=== PATIENT | male | born 1965 | race African-American/Black ===

== ENCOUNTER 2017-11-30 11:08 | Emergency (ER) | payer SELFPAY ==
[2017-11-30 11:10] VITALS: BP 139/77; PULSE 91; RESP 19; TEMP 36.8; O2SAT 95; BMI 19.2
--- NOTE | 2017-11-30 11:42 | ED.DCSUM_ITS ---
- ER Visit Summary Date of Service: 11/30/17 Chief Complaint: Cough with subjective fever and chills History of Present Illness: The patient is a 52 M significant past medical history. Patient states last week he has a cough of brownish phlegm with subjective fever and chills. States he is not getting better. Denies hemoptysis. He is a smoker. Physical Examination: Appearing middle-aged male. Vital signs are stable afebrile. Pulse ox 99% on room air no signs of hypoxia. H pharynx moist and pink. No erythema or exudate. Trouble swallowing or breathing. Neck nontender no lymphadenopathy. Lungs clear to auscultation bilaterally. Heart regular rhythm no murmur. Abdomen soft nontender. Normal bowel sounds. No peritoneal signs. Moving all 4 extremities. Neurovascularly intact. Calves nontender without edema or cords. Back exam nontender. Neurologically is awake and alert with no focal motor deficits. Test Results: X-ray two-view is a left upper lobe pneumonia near the first rib. I did discuss this with the radiologist. Emergency Department Course and Treatment: Patient be given his first dose of Zithromax here. And treated with Zithromax for the next 4 days. Treatment Plan: For a left upper lobe pneumonia with Zithromax. He will be referred to Dr. Yosi Peralta for follow-up. Due to the patient's smoking history he may need a repeat chest x-ray for repeat evaluation to ensure this is resolving. Disposition: Disharge Impression: Acute upper lobe pneumonia This note was generated with [employer] dictation software. It may contain incorrect words, spelling, and punctuation that were not noted in review of the chart prior to signing ED Disposition - Plan for ED Patient: Chief Complaint: Cold Sx Referrals: Care Physician,No Primary [Primary Care Provider] -
--- NOTE | 2017-11-30 11:50 | RAD_ITS ---
STUDY: X-RAY CHEST REASON FOR EXAM: Male, 52 years old. Cough. Fever and chills. TECHNIQUE: PA and lateral views of the chest. COMPARISON: None. FINDINGS: The lungs are clear and expanded. There is no demonstrated pleural abnormality. Normal size heart. Normal mediastinum and remy. Normal visualized pulmonary arteries. Normal visualized aortic arch and descending thoracic aorta. Normal visualized thoracic spine. Normal visualized ribs, clavicles, and shoulders. There is no demonstrated abnormality of the visualized soft tissue structures of the upper abdomen. RAD/Chest PA and Lateral IMPRESSION: Normal x-ray examination of the chest. Electronically Signed: Watson Irene MD at 12:44 EDT Tel [phone], Service support ,
--- NOTE | 2017-11-30 13:26 | ED.DEP ---
ED Disposition - Plan for ED Patient: Disposition: Home or Assisted Living Chief Complaint: Cold Sx Instructions: ED Pneumonia Adult Prescriptions: Azithromycin [Zithromax] 250 mg PO DAILY #4 tab Referrals: Care Physician,No Primary [Primary Care Provider] - Additional Instructions: Fluids and rest. Tylenol Motrin for chills. Zithromax 1 pill per day for the next 4 days. Follow-up with Dr. Yosi Peralta if not getting better or return to ER feeling worse. You have been diagnosed with a left upper lobe pneumonia. Stop smoking.
[2017-11-30] MEDS: Azithromycin 250 MG Tablet 500 MG PO (13:40)
[2017-11-30 13:42] VITALS: BP 128/78; PULSE 87; RESP 16; O2SAT 97
== END 2017-11-30 13:43 | disposition home or self-care (01) ==
PROVIDERS: Emergency Provider Emergency Medicine
DX: J18.1 Lobar pneumonia, unspecified organism (principal); F17.200 Nicotine dependence, unspecified, uncomplicated
CPT/HCPCS: 71046; 99282

== ENCOUNTER 2018-05-16 18:04 | Observation (INO) | payer MEDICAID, SELFPAY ==
[2018-05-16 18:06] VITALS: BP 130/101; PULSE 96; RESP 28; TEMP 36.8; O2SAT 100; BMI 19.3
--- NOTE | 2018-05-16 18:50 | EKG12_ITS ---
Test Reason : SOB Blood Pressure : / mmHG Vent. Rate : 066 BPM Atrial Rate : 066 BPM P-R Int : 136 ms QRS Dur : 070 ms QT Int : 396 ms P-R-T Axes : 078 -39 066 degrees QTc Int : 415 ms Normal sinus rhythm Left axis deviation ST elevation, consider early repolarization Abnormal ECG Confirmed by ROBIN MICHEL, VARGHESE ([id number]), editorial project manager ZAYNAB GOMEZ ([id number]) on 05/18/2018 1:13:49 PM Referred By: ANATOLIY Confirmed By:VARGHESE KELLY MD
[2018-05-16] MEDS: LORazepam 2 MG/ML Syringe 1 MG IV (18:59)
[2018-05-16] MEDS: 0.9% Normal Saline 1,000 ML 999 ML IV (19:01)
[2018-05-16 19:12] LABS: Absolute Lymphocyte Count 0.87 X10^3/ul (0.83-4.51); Absolute Neutrophil Count 8.1 X10^3/uL (2.0-7.7); Basophil# 0.01 X10^3/uL; Basophil% 0.1 % (0-1); Hematocrit 43.8 % (40-54); Lymphocyte # 0.87 X10^3/ul (4.0); Lymphocyte % 8.8 % (19-41); Mean Corp Hgb Conc 34.2 g/gl (32-36); Mean Corpuscular Hgb 32.8 pg (27.0-32.0); Mean Corpuscular Volume 95.6 fL (80-94); Mean Platelet Vol. 11.7 fl (6.2-12.0); Monocyte# 0.91 X10^3/uL; Monocyte% 9.2 % (0-10); Neutrophil # 8.07 X10^3/uL (2.7-7.7); Neutrophil % 81.8 % (47-70); Platelet Count 334 K/mm3 (150-450); RBC Distribution Width CV 14.7 % (11.6-14.6); RBC Distribution Width SD 51.3 fl (35.1-43.9); Red Blood Count 4.58 M/mm3 (4.6-6.2); White Blood Count 9.9 K/mm3 (4.4-11.0)
--- NOTE | 2018-05-16 19:15 | RAD_ITS ---
STUDY: X-RAY CHEST REASON FOR EXAM: Male, 52 years old. Dyspnea TECHNIQUE: AP portable COMPARISON: November 30, 2017 FINDINGS: The lungs are clear and expanded. There is no demonstrated pleural abnormality. Normal size heart. Normal mediastinum and remy. Normal visualized pulmonary arteries. Normal visualized aortic arch and descending thoracic aorta. Normal visualized thoracic spine. Normal visualized ribs, clavicles, and shoulders. There is no demonstrated abnormality of the visualized soft tissue structures of the upper abdomen. No significant change since prior exam RAD/Chest 1 View (Portable) IMPRESSION: Normal x-ray examination of the chest. Electronically Signed: Danny King MD at 20:07 EDT , Service support ,
[2018-05-16 19:16] LABS: POSITIVE COUNT NO; POSITIVE DIFFERENTIAL NO; POSITIVE MORPHOLOGY NO
[2018-05-16 19:31] LABS: ALB/GLOB Ratio 1.2 RATIO (0.9-2.4); AST(SGOT) 51 U/L (15-37); Alanine Aminotransfer ALT/SGPT 36 U/L (16-61); Albumin, Serum 4.7 g/dL (3.2-5.0); Alkaline Phosphatase 68 U/L (45-117); Anion Gap 20 (5-15); BUN 22 mg/dL (7-18); BUN/Creat Ratio 9.4 RATIO (10-20); Calcium,Total 10.1 mg/dL (8.5-10.1); Chloride 100 mmol/L (98-107); Creatinine, Serum 2.35 mg/dL (0.70-1.30); EST Glomerular Filtration Rate 31 mL/min (>60); Est Glom Filt Rate - Afr Amer 37 mL/min (>60); Estimated Creatinine Clearance 28.69 ml/min; Glucose 97 mg/dL (74-106); Potassium 4.6 mmol/L (3.5-5.1); Protein, Total 8.7 g/dL (6.4-8.2); Sodium Level 140 mmol/L (136-145)
[2018-05-16 19:51] LABS: Alcohol, Blood (Medical)-Serum < 3.0 mg/dL
[2018-05-16 20:05] VITALS: PULSE 75; RESP 19; O2SAT 99
[2018-05-16 22:00] VITALS: PULSE 84; RESP 14
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
[2018-05-17] VITALS (7 sets, daily range): BP systolic 98–114; BP diastolic 59–75; PULSE 76–110; RESP 14–18; TEMP 36.6–37; O2SAT 97–100; BMI 18.8
--- NOTE | 2018-05-17 00:19 | US_ITS ---
STUDY: ABDOMINAL ULTRASOUND - RIGHT UPPER QUADRANT REASON FOR VISIT: Male, 52 years old. Elevated liver function tests. TECHNIQUE: Ultrasound evaluation of the right upper quadrant was performed with real-time and static figueroa-scale imaging. TECHNICAL QUALITY: Adequate. COMPARISON: None. FINDINGS: Liver: The liver measures 13.8 cm. There is normal echogenicity of the liver. The bile ducts are within normal limits. There is hepatic color flow. The direction of portal flow is hepatopetal. There is no demonstrated mass lesion. Gallbladder: Normal distended gallbladder. The gallbladder wall measures 2.0 mm. There is a negative sonographic Barrett's sign. There is no pericholecystic fluid. There are no gallstones. Common Bile Duct (C.B.D.): The common bile duct measures 2.0 mm. Pancreas: Normal size of the head, body and tail of the pancreas. There is normal echogenicity of the pancreas. There is no demonstrated pancreatic mass or cyst. Right Kidney: Normal size of the right kidney. The right kidney measures 10.1 cm x 5.0 cm x 3.3 cm. Normal renal cortex. The right cortex measures 1.4 cm. There is no demonstrated renal mass or cyst. There is no right hydronephrosis. US/Abdomen Limited IMPRESSION: Normal right upper quadrant ultrasound examination. Electronically Signed: Watson Irene MD at 14:35 EDT Tel [phone], Service support ,
[2018-05-17] MEDS: 0.9% Normal Saline 1,000 ML 125 ML IV ×2 (01:00→17:54)
[2018-05-17 01:24] LABS: CPK Total, Creatine Kinase 1549 U/L (39-308); Prealbumin 28.3 mg/dL (20.0-40.0)
[2018-05-17 03:32] LABS: Magnesium 2.5 mg/dL (1.6-2.6); Phosphorus 1.7 mg/dL (2.5-4.9)
[2018-05-17 04:26] LABS: Lactic Acid 0.7 mmol/L (0.4-2.0)
[2018-05-17] MEDS: Heparin Injection (Vial) 5,000 UNIT/ML VIAL 5000 UNIT SC (06:07)
[2018-05-17 06:52] LABS: Absolute Lymphocyte Count 2.33 X10^3/ul (0.83-4.51); Absolute Neutrophil Count 4.8 X10^3/uL (2.0-7.7); Basophil# 0.01 X10^3/uL; Basophil% 0.1 % (0-1); Eosinophil# 0.01 X10^3/uL; Eosinophils% 0.1 % (0-5); Hematocrit 39.9 % (40-54); Hemoglobin 13.6 g/dl (13.0-16.5); Lymphocyte # 2.33 X10^3/ul (4.0); Lymphocyte % 28.8 % (19-41); Mean Corp Hgb Conc 34.1 g/gl (32-36); Mean Corpuscular Hgb 32.6 pg (27.0-32.0); Mean Corpuscular Volume 95.7 fL (80-94); Mean Platelet Vol. 11.3 fl (6.2-12.0); Monocyte% 11.1 % (0-10); Neutrophil # 4.83 X10^3/uL (2.7-7.7); Neutrophil % 59.8 % (47-70); Platelet Count 304 K/mm3 (150-450); RBC Distribution Width CV 14.8 % (11.6-14.6); RBC Distribution Width SD 51.5 fl (35.1-43.9); Red Blood Count 4.17 M/mm3 (4.6-6.2); White Blood Count 8.1 K/mm3 (4.4-11.0)
[2018-05-17 06:54] LABS: Prothrombin Time (Protime)PT. 13.3 SECONDS (11.7-14.9)
[2018-05-17 07:10] LABS: POSITIVE COUNT NO; POSITIVE DIFFERENTIAL NO; POSITIVE MORPHOLOGY NO
[2018-05-17 07:13] LABS: Anion Gap 13 (5-15); BUN 24 mg/dL (7-18); BUN/Creat Ratio 16.4 RATIO (10-20); Calcium,Total 8.5 mg/dL (8.5-10.1); Chloride 104 mmol/L (98-107); Creatinine, Serum 1.46 mg/dL (0.70-1.30); EST Glomerular Filtration Rate 54 mL/min (>60); Est Glom Filt Rate - Afr Amer 65 mL/min (>60); Estimated Creatinine Clearance 45.11 ml/min; Glucose 76 mg/dL (74-106); Potassium 3.7 mmol/L (3.5-5.1); Sodium Level 137 mmol/L (136-145)
[2018-05-17 07:26] LABS: Mucous, Urine 0 SEEN /hpf (<or=2+)
[2018-05-17 07:33] LABS: Urine Sodium 102 mmol/L (Not Establ.)
[2018-05-17 07:46] LABS: Amphetamine Urine VISTA POSITIVE (<1000 ng/mL); Barbiturate Urine VISTA NEGATIVE (< 200 ng/mL); Benzodiazepine Urine VISTA NEGATIVE (< 200 ng/mL); Cocaine Urine VISTA NEGATIVE (< 300 ng/mL); Ecstacy Urine VISTA NEGATIVE (< 500 ng/mL); Methadone Urine VISTA NEGATIVE (< 300 ng/mL); PCP Urine VISTA NEGATIVE (< 25 ng/mL); THC Urine VISTA POSITIVE (< 50 ng/mL); Vista UDS pH Range 5
[2018-05-17 08:03] LABS: Color, Urine Yellow (Yellow); Glucose, Dipstick Normal (Normal); Leukocyte Esterase-Dipstick 25 /ul (Negative); Nitrite-Dipstick Negative (Negative); Occult Blood-Urine 25 /ul (Negative); Protein-Dipstick 30 mg/dl (Negative); Urine Bilirubin Dipstick Negative (Negative); Urine Clarity Sl. Cloudy (Clear); Urine Urobilinogen 1 mg/dl (Normal)
[2018-05-17 08:08] LABS: Ketone-Dipstick 150 mg/dl (Negative)
[2018-05-17 08:11] LABS: Amorphous Sediment 1+; Bacteria 1+ /hpf (None Seen); Red Blood Cells-Urine 0-5 SEEN /hpf (0-5); Squamous Epithelial Cells - UA 0-5 SEEN /hpf (0-5); White Blood Cells 0-5 SEEN /hpf (0-5)
--- NOTE | 2018-05-17 11:15 | CASEMGMT ---
KRYSTIAN MURPHY Face to Face with patient for initial transition planning/care coordination assessment. KRYSTIAN MURPHY introduced self and role at [facility]. Patient lying in bed, alert and oriented, withdrawn playing on tablet. Patient states he lives on the streets and preferred pharamcy is [facility]. Denies any DME. Patient asked if you utilizes any shelters or other resources and states no. Patient states he plans to return to the streets. KRYSTIAN MURPHY offered [facility] referral for additional resources for shelters, food gonzalez, and housing. Patient declined resources. Patient states he has no further needs or concerns at this time. CM to follow for discharge planning needs that may arise. KRYSTIAN MURPHY updated hospitalist and [facility]I Andrews regarding patient's living situation and denying resources. Amanda GOODMANN, RN, CM
[2018-05-17] MEDS: Thiamine Hydrochloride 100 MG Tablet PO ×2 (11:26→16:06)
[2018-05-17] MEDS: Folic Acid 1 MG Tablet PO (11:26)
[2018-05-17] MEDS: Multivitamins,Ther W-Minerals Tablet 1 TABLET PO (11:26)
[2018-05-17] MEDS: Na Biphos/Potassium Phosphate PACKET 1 PACKET PO ×4 (11:31→20:26)
--- NOTE | 2018-05-17 11:53 | PN_ITS ---
Patient Problems: Active and Suspected Problems Dehydration (Acute) KAVEH (acute kidney injury) (Acute) Heat exhaustion (Acute) High anion gap metabolic acidosis (Acute) Elevated liver enzymes (Acute) Protein-calorie malnutrition, mild (Acute) Subjective: Patient was seen and examined. Denies any new complaints. Feels improved, less nauseous, no abdominal pain or diarrhea Vitals/I&O's: Vital Signs Temp Pulse Resp BP Pulse Ox 97.8 F 77 18 114/75 100 05/17/18 09:55 05/17/18 09:55 05/17/18 09:55 05/17/18 09:55 05/17/18 09:55 Oxygen Delivery Method Room Air Weight: 54.5 kg Body Mass Index (BMI) 18.8 Intake and Output for Last 24 Hours 05/15/18 05/16/18 05/17/18 23:59 23:59 23:59 Intake Total 1375 / 1375 Balance 1375 / 1375 General: Alert, Oriented x3, Cooperative, No apparent distress HEENT: Atraumatic, PERRLA, EOMI, Normocephalic Oral: Moist Mucosa Neck: Supple, No JVD, Negative Carotid Bruits Lungs: Clear to auscultation, Normal air movement Cardiovascular: Regular rate, Regular Rhythm, Normal S1, Normal S2, No murmurs Abdomen: Bowel Sounds Present, Soft, Non Tender, Non-Distended, No Hepato- splenomegaly Extremities: No edema Skin: No rashes, No breakdown Musculoskeletal: No Tenderness to Palpation of Joints or Extremities Lymphatic: No Cervical, Supraclavicular, or Inguinal Adenopathy Neurological: Cranial nerves II-XII grossly intact, Neuro grossly intact Psych/Mental Status: Normal Affect, Appropriate Laboratory Results 05/17/18 00:00: Total Creatine Kinase 1549 H, Prealbumin 28.3 05/17/18 00:16: Phosphorus 1.7 L, Magnesium 2.5 05/17/18 03:40: Lactic Acid 0.7 05/17/18 05:40: Acetone Level NEGATIVE 05/17/18 05:40: PT 13.3, INR 1.0 05/17/18 05:40: WBC 8.1, RBC 4.17 L, Hgb 13.6, Hct 39.9 L, MCV 95.7 H, MCH 32.6 H, MCHC 34.1, RDW 14.8 H, RDW Differential 51.5 H, Plt Count 304, MPV 11.3, Immature Gran % (Auto) 0.100, Neut % (Auto) 59.8, Lymph % (Auto) 28.8, [place] % ( Auto) 11.1 H, Eos % (Auto) 0.1, Baso % (Auto) 0.1, Absolute Neuts (auto) 4.8, Absolute Lymphs (auto) 2.33, Total Counted Not Reportable 05/17/18 05:40: Sodium 137, Potassium 3.7, Chloride 104, Carbon Dioxide 20.0 L, Anion Gap 13, BUN 24 H, Creatinine 1.46 H, Estim Creat Clear Calc 45.11, Est GFR (MDRD) Af Amer 65, Est GFR (MDRD) Non-Af 54 L, BUN/Creatinine Ratio 16.4, Glucose 76, Calcium 8.5 05/17/18 06:15: Urine Opiates Screen NEGATIVE, Urine Methadone Screen NEGATIVE, Ur Barbiturates Screen NEGATIVE, Ur Phencyclidine Scrn NEGATIVE, Ur Amphetamines Screen POSITIVE H, U Methamphetamin-MDMA NEGATIVE, U Benzodiazepines Scrn NEGATIVE, Urine Cocaine Screen NEGATIVE, U Cannabinoids Screen POSITIVE H, Ur Drug Screen Comment 05/17/18 06:15: Urine Color Yellow, Urine Clarity Sl. Cloudy, Urine pH 6.0, Ur Specific [place] 1.020, Urine Protein 30 H, Urine Glucose (UA) Normal, Urine Ketones 150 H, Urine Occult Blood 25 H, Urine Nitrite Negative, Urine Bilirubin Negative, Urine Urobilinogen 1 H, Ur Leukocyte Esterase 25 H, Urine RBC 0-5 SEEN , Urine WBC 0-5 SEEN, Ur Squamous Epith Cells 0-5 SEEN, Amorphous Sediment 1+, Urine Bacteria 1+, Urine Mucus 0 SEEN 05/17/18 06:15: Urine Creatinine 274.00 05/17/18 06:15: Ur Random Sodium 102 Current Medications Folic Acid (Folic Acid) 1 mg PO DAILY@0800 [facility] Stop: 05/19/18 08:01 Last Admin: 05/17/18 11:26 Dose: 1 mg Heparin Sodium (Porcine) (Heparin Na) 5,000 unit SC Q8 [facility] Last Admin: 05/17/18 06:07 Dose: 5,000 unit Lorazepam (Ativan) 2 mg PO Q2H PRN PRN; Protocol PRN Reason: CIWA score > 8 but <15 Lorazepam (Ativan) 2 mg PO UD PRN; Protocol PRN Reason: CIWA score >/=15. Lorazepam (Ativan) 2 mg IV Q2H PRN PRN; Protocol PRN Reason: CIWA score > 8 but <15 Lorazepam (Ativan) 2 mg IV UD PRN; Protocol PRN Reason: CIWA score >/=15. Magnesium Hydroxide (Milk Of Magnesia) 30 ml PO DAILY PRN PRN PRN Reason: Constipation Multivitamins/Minerals (Multivitamin With Minerals) 1 tablet PO DAILYCM [facility] Last Admin: 05/17/18 11:26 Dose: 1 tablet Nicotine (Nicoderm Cq (Pbkc)) 21 mg TRANSDERM. DAILY [facility] Last Admin: 05/17/18 11:38 Dose: Not Given Nutritional Formula (Lactose Free) (Ensure Enlive) 120 ml PO 4X/DAY [facility] Last Admin: 05/17/18 11:30 Dose: 120 ml Ondansetron HCl (Zofran) 4 mg IV Q8H PRN PRN PRN Reason: NAUSEA Potassium Phos/Sodium Phos (Neutra-Phos Packet) 1 packet PO 4X/[facility] Stop: 05/17/18 22:01 Last Admin: 05/17/18 11:31 Dose: 1 packet Sodium Chloride () 5 - 30 ml IV UD PRN PRN Reason: SALINE FLUSH Thiamine HCl (Vitamin B1) 100 mg PO BIDCM [facility] Stop: 05/19/18 17:01 Last Admin: 05/17/18 11:26 Dose: 100 mg Zolpidem Tartrate (Ambien (Generic)) 5 mg PO QHS PRN PRN PRN Reason: INSOMNIA Medical Necessity - Tobacco Use Smoking Status: Current every day smoker Assessment/Plan All Active Problems Dehydration (Acute) KAVEH (acute kidney injury) (Acute) Heat exhaustion (Acute) High anion gap metabolic acidosis (Acute) Elevated liver enzymes (Acute) Protein-calorie malnutrition, mild (Acute) 52-year-old male with history of polysubstance use, homeless comes in with 1 day history of shortness of breath, nausea, vomiting and diaphoresis. Chest x- ray was negative for any acute cardiopulmonary process. Patient was found on admission to have acute kidney injury as well as anion gap metabolic acidosis. 1. KAVEH secondary to dehydration, improving with IV fluids, creatinine improved from 2.35-1.46, unclear of baseline 2. Anion gap metabolic acidosis secondary to alcoholism and starvation, improving, bicarbonate remains the same, will continue to trend 3. Chronic alcohol dependency, alcohol withdrawal protocol with monitoring of CIWA, on thiamine, folic acid, advised to quit 4. Elevated liver enzymes continue to alcohol, improving, labs in a.m. 5. Hypophosphatemia secondary to refeeding disorder, replace, recheck in a.m. 6. Moderate protein energy malnutrition, on supplements, monitor for refeeding syndrome 7. Polysubstance dependency, advised to quit 8. Homelessness, social science research assistant consulted, resources to be given to patient 9. DVT prophylaxis with heparin subcu Code Visit Inpatient E&M: 68899 Subs Hosp L2
--- NOTE | 2018-05-17 15:03 | CASEMGMT ---
Social Work Note Per H+P pt is homeless, has history of alcohol and marijuana use, and can't afford food. [facility] met with pt. SW attempted to discuss resources with pt but pt refused information about resources. SW attempted to educate pt on PCP list, [facility], Homeless Shelters, [place] [address], [facility], Meals/Food resources, Food Pantries, [facility], and counseling services but pt refused to speak to this worker. Pt refused to take resources. SW encouraged pt that if he would like resources to let the staff know and this SW can provide pt with resources. Amanda Andrews INTERVIEWING CLERK, STAFF ELECTRICAL ENGINEER
[2018-05-17] MEDS: 0.9% NaCl Peripheral Flush Adult/Peds IV (17:54)
--- NOTE | 2018-05-17 20:31 | NURSING ---
Pt. c/o inability to urinate. This nurse bladder scanned patient for 93 ml. 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 Will notify hospitalist.
[2018-05-18] MEDS: 0.9% Normal Saline 1,000 ML 125 ML IV (01:22)
[2018-05-18 03:30] VITALS: BP 90/56; PULSE 57; RESP 16; TEMP 36.6; O2SAT 100
[2018-05-18 05:30] VITALS: BP 98/66; PULSE 62; RESP 16; TEMP 36.6; O2SAT 100
[2018-05-18 05:31] VITALS: BP 98/66; PULSE 62; RESP 16; TEMP 36.6; O2SAT 100
[2018-05-18 06:50] LABS: ALB/GLOB Ratio 0.9 RATIO (0.9-2.4); AST(SGOT) 32 U/L (15-37); Alanine Aminotransfer ALT/SGPT 23 U/L (16-61); Albumin, Serum 2.8 g/dL (3.2-5.0); Alkaline Phosphatase 45 U/L (45-117); Anion Gap 7 (5-15); BUN 19 mg/dL (7-18); Calcium,Total 7.9 mg/dL (8.5-10.1); Chloride 109 mmol/L (98-107); Creatinine, Serum 0.95 mg/dL (0.70-1.30); EST Glomerular Filtration Rate 88 mL/min (>60); Est Glom Filt Rate - Afr Amer 107 mL/min (>60); Estimated Creatinine Clearance 69.32 ml/min; Globulin 3.1 g/dL (2.2-4.2); Glucose 87 mg/dL (74-106); Protein, Total 5.9 g/dL (6.4-8.2); Sodium Level 139 mmol/L (136-145)
--- NOTE | 2018-05-18 07:53 | DCINST_ITS ---
- Discharge Diagnoses Current Active Problems: Current Active and Chronic Problems Dehydration (Acute) KAVEH (acute kidney injury) (Acute) Heat exhaustion (Acute) High anion gap metabolic acidosis (Acute) Elevated liver enzymes (Acute) Protein-calorie malnutrition, mild (Acute) Reason(s) for Visit for Discharge Instructions: Nausea, vomiting, abdominal pain You will use the following diet at home:: Regular Your food should be the consistency of: Regular Your liquids should be the consistency of: Regular/Thin Discharge Activity: Return to Normal Activity Additional Instructions: You need to follow-up with a primary care doctor within 2 weeks. Continue to keep yourself hydrated. You are advised to quit smoking and using illicit drugs. Allergies/Adverse Reactions: Allergies No Known Allergies Allergy (Verified 05/16/18 18:11) Medications to take at Discharge NK [NK] 05/16/18 Orders to be completed after discharge: Basic Metabolic Profile (BMP) Time Frame: 1 Week, Location: Laboratory Primary Care Physician: Care Physician,No Primary [Primary Care Provider] - Please follow up with your Primary Care Physician in: within 2 weeks Test Results: Test results from this visit will be discussed in further detail at your follow- up appointment, if applicable. Proposed Discharge Date: 05/18/18
[2018-05-18 08:53] LABS: Phosphorus 2.9 mg/dL (2.5-4.9)
--- NOTE | 2018-05-18 08:58 | DS.PCM_ITS ---
Discharge Date and Diagnosis Date of Admission: 05/16/18 Date of Discharge: 05/18/18 - Primary Discharge Diagnosis Active and Suspected Problems Dehydration (Acute) KAVEH (acute kidney injury) (Acute) Heat exhaustion (Acute) High anion gap metabolic acidosis (Acute) Elevated liver enzymes (Acute) Protein-calorie malnutrition, mild (Acute) Polysubstance dependency Hospital Course and Treatment Imaging Results: Clinical Impression(s) from Imaging Studies Chest X-Ray 05/16/18 19:15 IMPRESSION: Normal x-ray examination of the chest. Electronically Signed: Danny King MD at 20:07 EDT , Service support , Abdomen Ultrasound 05/17/18 00:19 IMPRESSION: Normal right upper quadrant ultrasound examination. Electronically Signed: Watson Irene MD at 14:35 EDT Tel [phone], Service support , None Operations: None Procedures: None Summary of Care Provided: 52-year-old male with history of polysubstance use, homeless comes in with 1 day history of shortness of breath, nausea, vomiting and diaphoresis. Chest x- ray was negative for any acute cardiopulmonary process. Patient was found on admission to have acute kidney injury as well as anion gap metabolic acidosis. His management to the hospital was as follows: 1. KAVEH secondary to dehydration, this was managed with IV fluids, creatinine improved from 2.35 to normal at the day of the discharge, encouraged to keep hydrating himself, needs to follow-up with his primary care doctor and repeat blood work in 1 week. 2. Anion gap metabolic acidosis secondary to alcoholism and starvation, improving, improved with hydration 3. Chronic alcohol dependency, alcohol withdrawal protocol with monitoring of CIWA, on thiamine, folic acid, advised to quit 4. Elevated liver enzymes tender to alcohol, resolving, advised to quit drinking alcohol 5. Hypophosphatemia secondary to refeeding disorder, resolved 6. Moderate protein energy malnutrition, on supplements 7. Polysubstance dependency, advised to quit 8. Homelessness, social media sr strategy manager consulted, resources to be given to patient, patient refused to take any resources, given resources for primary care doctor for him to follow-up with Discharge Diet: No Restrictions Discharge Activity: Return to Normal Activity Home Medications: Medications to take at Discharge NK [NK] 05/16/18 Primary Care Physician: Care Physician,No Primary [Primary Care Provider] - Please follow up with your Primary Care Physician in: within 2 weeks Disposition: Home Minutes spent on discharge:: 45 Medical Necessity - Tobacco Use Smoking Status: Current every day smoker Tobacco Use: Cigarettes Meaningful Use Info Meaningful Use Diagnoses (Choose all that apply): None applicable Code Visit Inpatient E&M: 83823 Disch Hosp
--- NOTE | 2018-05-18 09:07 | CASEMGMT ---
Social Work Note SW provided pt with list of PCP. Amanda Andrews EGG WORKER, RIDE ATTENDANT
[2018-05-18 09:42] VITALS: O2SAT 96
== END 2018-05-18 10:19 | disposition home or self-care (01) ==
LOC: ED 22:32 → MS3 23:45
PROVIDERS: Admitting Provider Hospitalist; Emergency Provider Emergency Medicine; Visit Provider Internal Medicine
DX: E86.0 Dehydration (principal); Z59.0 Homelessness; N17.9 Acute kidney failure, unspecified; E44.0 Moderate protein-calorie malnutrition; Z68.1 Body mass index [BMI] 19.9 or less, adult; F19.20 Other psychoactive substance dependence, uncomplicated; E83.39 Other disorders of phosphorus metabolism; F10.20 Alcohol dependence, uncomplicated; E87.2 Acidosis; F17.210 Nicotine dependence, cigarettes, uncomplicated; T67.5XXA Heat exhaustion, unspecified, initial encounter; R74.8 Abnormal levels of other serum enzymes
CPT/HCPCS: 36415; 71045; 76705; 80048; 80053; 80307; 80320; 81001; 82009; 82550; 82570; 83605; 83735; 84100; 84134; 84300; 84484; 85025; 85610; 93005; 96361; 96372; 96374; 97802; 99218; 99285; 99406; J7030; J7040; A4216; G0378; G0480

== ENCOUNTER 2018-06-03 17:00 | Emergency (ER) | payer MEDICAID, SELFPAY ==
[2018-06-03 17:02] VITALS: BP 93/57; PULSE 64; RESP 14; TEMP 35.9; O2SAT 93; BMI 18.6
--- NOTE | 2018-06-03 17:39 | CT_ITS ---
STUDY: CT ABDOMEN AND PELVIS WITHOUT CONTRAST REASON FOR EXAM: Male, 52 years old. Nausea, loss of appetite x2 days RADIATION DOSAGE (If Supplied By Facility): CTDIvol = ( 6.04 ) mGy, DLP = ( 283.89 ) mGycm TECHNIQUE: Transaxial images were obtained from the dome of the diaphragm to the symphysis pubis without oral contrast, and without intravenous contrast. Sagittal and coronal images were reconstructed. Individualized dose optimization techniques were used for this CT. COMPARISON: None. FINDINGS: The visualized lung bases are unremarkable. The visualized portions of the heart are within normal limits. Normal liver. Normal gallbladder and extrahepatic biliary system. Normal spleen. Normal pancreas. Normal bilateral adrenal glands. Normal right kidney. Normal left kidney. Normal visualized stomach. Multiple nondistended fluid-filled small bowel loops are noted consistent with ileus. Retained stool noted in the colon. The appendix is visualized and appears normal. Appendix best seen on coronal recon image 39. Normal abdominal aorta. Normal inferior vena cava. Normal retroperitoneum. Normal urinary bladder. Normal abdominal wall. Normal osseous structures. CT/Abdomen/Pelvis without Cont IMPRESSION: No suspicious solid organ abnormality Small bowel ileus Retained stool in the colon No CT evidence of an acute inflammatory process, normal appendix visualized. Electronically Signed: Jovani Killain MD at 18:05 EDT , Service support ,
[2018-06-03 17:56] LABS: Absolute Neutrophil Count 8.8 X10^3/uL (2.0-7.7); Basophil# 0.01 X10^3/uL; Basophil% 0.1 % (0-1); Hematocrit 39.5 % (40-54); Hemoglobin 13.3 g/dl (13.0-16.5); Mean Corp Hgb Conc 33.7 g/gl (32-36); Mean Corpuscular Hgb 32.9 pg (27.0-32.0); Mean Corpuscular Volume 97.8 fL (80-94); Monocyte# 0.43 X10^3/uL; Monocyte% 4.3 % (0-10); Neutrophil # 8.76 X10^3/uL (2.7-7.7); Neutrophil % 87.5 % (47-70); Platelet Count 355 K/mm3 (150-450); RBC Distribution Width CV 14.9 % (11.6-14.6); RBC Distribution Width SD 53.6 fl (35.1-43.9); Red Blood Count 4.04 M/mm3 (4.6-6.2)
[2018-06-03 17:58] LABS: POSITIVE COUNT NO; POSITIVE DIFFERENTIAL NO; POSITIVE MORPHOLOGY NO
[2018-06-03] MEDS: Ondansetron 4 MG/2 ML Vial IV (18:01)
[2018-06-03] MEDS: 0.9% Normal Saline 1,000 ML 1000 ML IV (18:01)
[2018-06-03 18:13] LABS: BUN 21 mg/dL (7-18); Creatinine, Serum 1.24 mg/dL (0.70-1.30); EST Glomerular Filtration Rate 65 mL/min (>60); Est Glom Filt Rate - Afr Amer 78 mL/min (>60); Estimated Creatinine Clearance 52.62 ml/min; Glucose 126 mg/dL (74-106)
[2018-06-03 18:14] LABS: AST(SGOT) 33 U/L (15-37); Alanine Aminotransfer ALT/SGPT 32 U/L (16-61); Alkaline Phosphatase 54 U/L (45-117); Anion Gap 16 (5-15); BUN/Creat Ratio 16.9 RATIO (10-20); Bilirubin, Direct 0.19 mg/dL (0.00-0.30); Calcium,Total 9.1 mg/dL (8.5-10.1); Chloride 103 mmol/L (98-107); Globulin 3.5 g/dL (2.2-4.2); Lipase 171 U/L (73-393); Potassium 3.9 mmol/L (3.5-5.1); Protein, Total 7.5 g/dL (6.4-8.2); Sodium Level 142 mmol/L (136-145)
--- NOTE | 2018-06-03 18:39 | ED.DCSUM_ITS ---
- ER Visit Summary Date of Service: 06/03/18 Chief Complaint: Nausea and vomiting History of Present Illness: The patient is a 52 M who presents with nausea vomiting. He states it started earlier today. He denies any abdominal pain. He denies diarrhea or constipation. He denies eating any bad food. He denies urinary symptoms. He feels weak overall. No history of any abdominal surgeries in the past. He has not had a fever. He took nothing for it at home. Physical Examination: Vital signs reviewed. HEENT exam unremarkable. Heart is regular rate and rhythm without murmurs. Lungs are clear to auscultation. Abdomen is soft with diffuse tenderness to palpation. No guarding or rebound tenderness. Extremities reveal no edema. Skin exam normal. Neurologic exam normal. Test Results: Laboratory studies are normal except for glucose of 126 and a BUN of 21. CAT scan reveals a small bowel ileus Emergency Department Course and Treatment: Patient was given Bentyl and Zofran. He was also given normal saline. Upon reevaluation at 1832 the patient feels much better. He is playing on his iPad. I feel he can be discharged home with symptom Medicare. I will given Bentyl and Phenergan. He will follow-up with his primary care physician. Treatment Plan: [] Disposition: Discharge Impression: Nausea and vomiting/ileus This note was generated with [employer] dictation software. It may contain incorrect words, spelling, and punctuation that were not noted in review of the chart prior to signing ED Disposition - Plan for ED Patient: Disposition: Home or Assisted Living Chief Complaint: Nausea/Vomiting Instructions: ED Nausea Vomiting Prescriptions: proMETHazine tablet [Phenergan] 25 mg PO Q6H PRN PRN #10 tab PRN Reason: Nausea Dicyclomine HCl [Bentyl] 20 mg PO TIDAC #20 cap Referrals: Care Physician,No Primary [Primary Care Provider] -
[2018-06-03 18:47] VITALS: BP 110/60; PULSE 80; RESP 16
== END 2018-06-03 18:47 | disposition home or self-care (01) ==
PROVIDERS: Emergency Provider Emergency Medicine
DX: K56.7 Ileus, unspecified (principal); R11.2 Nausea with vomiting, unspecified; Z72.0 Tobacco use
CPT/HCPCS: 74176; 80048; 80076; 83690; 85025; 96361; 96374; 99285; J2405

== ENCOUNTER 2018-06-22 19:03 | Observation (INO) | payer MEDICAID, SELFPAY ==
[2018-06-22 19:05] VITALS: BP 116/67; PULSE 72; RESP 18; TEMP 37.1; O2SAT 98; BMI 18.3
--- NOTE | 2018-06-22 20:21 | ED.DEP ---
ED Disposition - Plan for ED Patient: Chief Complaint: Wound Instructions: Parts of the Mouth Referrals: Mike Ibarra DDS [STAFF PHYSICIAN] -
--- NOTE | 2018-06-22 20:28 | ED.VISSUMM ---
- ER Visit Summary Date of Service: 06/22/18 Chief Complaint: Tongue bleeding History of Present Illness: The patient is a 53 M presenting with tongue bleeding. Patient states this started yesterday. He has had intermittent bleeding from his tongue. No known injury. He is not on blood thinners. He denies pain. Denies other complaints. Physical Examination: Vitals are stable. Patient is afebrile. Alert no acute distress. HEENT exam white discoloration of tongue that does not scrape off with tongue blade. No active bleeding. Neck is supple. Lungs are clear and equal bilaterally. Heart is regular rate and rhythm. Abdomen is soft nontender nondistended. Extremities are unremarkable. Skin is warm and dry. Remainder of exam is unremarkable. Emergency Department Course and Treatment: Patient has no active bleeding. On reevaluation the patient is now spitting up clots and blood. He is not vomiting blood. He feels it is coming from the back of his tongue. He states it has been intermittent similar to this. The bleeding is now resolved. There are no visible areas of bleeding in his mouth. CBC normal except for hemoglobin 12.8. Chemistries unremarkable other than BUN 26. INR 0.9. Due to his intermittent bleeding discussed with the hospitalist for observation. Disposition: Observation Impression: Tongue bleeding This note was generated with [employer] dictation software. It may contain incorrect words, spelling, and punctuation that were not noted in review of the chart prior to signing ED Disposition - Plan for ED Patient: Chief Complaint: Wound
[2018-06-22] MEDS: 0.9% Normal Saline 1,000 ML 1000 ML IV (20:56)
[2018-06-22 21:09] LABS: Absolute Lymphocyte Count 3.33 X10^3/ul (0.83-4.51); Absolute Neutrophil Count 6.2 X10^3/uL (2.0-7.7); Basophil# 0.02 X10^3/uL; Basophil% 0.2 % (0-1); Eosinophil# 0.04 X10^3/uL; Eosinophils% 0.4 % (0-5); Hematocrit 37.9 % (40-54); Hemoglobin 12.8 g/dl (13.0-16.5); Lymphocyte # 3.33 X10^3/ul (4.0); Lymphocyte % 32.9 % (19-41); Mean Corp Hgb Conc 33.8 g/gl (32-36); Mean Corpuscular Hgb 32.8 pg (27.0-32.0); Mean Corpuscular Volume 97.2 fL (80-94); Mean Platelet Vol. 9.5 fl (6.2-12.0); Monocyte# 0.48 X10^3/uL; Monocyte% 4.7 % (0-10); Neutrophil # 6.23 X10^3/uL (2.7-7.7); Neutrophil % 61.6 % (47-70); Platelet Count 578 K/mm3 (150-450); RBC Distribution Width CV 13.7 % (11.6-14.6); RBC Distribution Width SD 49.3 fl (35.1-43.9); White Blood Count 10.1 K/mm3 (4.4-11.0)
[2018-06-22 21:11] LABS: POSITIVE COUNT NO; POSITIVE DIFFERENTIAL NO; POSITIVE MORPHOLOGY NO
[2018-06-22 21:12] LABS: International Normalized Ratio 0.9; Prothrombin Time (Protime)PT. 12.6 SECONDS (11.7-14.9)
[2018-06-22 21:13] LABS: Partial Thromboplast Time 32.7 Seconds (24.1-36.2)
[2018-06-22 21:24] LABS: ALB/GLOB Ratio 0.7 RATIO (0.9-2.4); AST(SGOT) 21 U/L (15-37); Alanine Aminotransfer ALT/SGPT 35 U/L (16-61); Albumin, Serum 3.2 g/dL (3.2-5.0); Alkaline Phosphatase 70 U/L (45-117); Anion Gap 8 (5-15); BUN 26 mg/dL (7-18); BUN/Creat Ratio 27.7 RATIO (10-20); Calcium,Total 8.8 mg/dL (8.5-10.1); Chloride 101 mmol/L (98-107); Creatinine, Serum 0.94 mg/dL (0.70-1.30); EST Glomerular Filtration Rate 89 mL/min (>60); Est Glom Filt Rate - Afr Amer 108 mL/min (>60); Estimated Creatinine Clearance 69.63 ml/min; Globulin 4.8 g/dL (2.2-4.2); Glucose 85 mg/dL (74-106); Potassium 4.1 mmol/L (3.5-5.1); Sodium Level 135 mmol/L (136-145)
--- NOTE | 2018-06-22 22:56 | ED.RN ---
PT ADAMANTLY REFUSES NG DESPITE EDUCATION ON PURPOSE AND NEED, MD AWARE.
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
[2018-06-22 23:30] VITALS: BP 107/70; PULSE 92; RESP 16; O2SAT 97
[2018-06-23 00:08] VITALS: BMI 18.3; BMI 18.4
[2018-06-23 00:09] VITALS: BP 93/59; PULSE 95; RESP 18; TEMP 37; O2SAT 100
[2018-06-23] MEDS: 0.9% Normal Saline 1,000 ML 100 ML IV ×2 (00:45→11:58)
[2018-06-23 01:27] LABS: Hematocrit 34.7 % (40-54); Hemoglobin 11.6 g/dl (13.0-16.5)
[2018-06-23 02:06] LABS: Magnesium 2.1 mg/dL (1.6-2.6); Phosphorus 3.2 mg/dL (2.5-4.9)
[2018-06-23 02:39] LABS: HIV - WCH Non-Reactive (Nonreactive)
[2018-06-23 03:41] VITALS: BP 107/42; PULSE 81; RESP 18; TEMP 36.9; O2SAT 98
[2018-06-23 04:03] LABS: Absolute Neutrophil Count 4.1 X10^3/uL (2.0-7.7); Basophil# 0.03 X10^3/uL; Basophil% 0.4 % (0-1); Eosinophil# 0.05 X10^3/uL; Eosinophils% 0.6 % (0-5); Hematocrit 33.9 % (40-54); Hemoglobin 11.6 g/dl (13.0-16.5); Lymphocyte % 39.1 % (19-41); Mean Corp Hgb Conc 34.2 g/gl (32-36); Mean Corpuscular Hgb 33.5 pg (27.0-32.0); Mean Platelet Vol. 9.7 fl (6.2-12.0); Monocyte# 0.58 X10^3/uL; Monocyte% 7.3 % (0-10); Neutrophil # 4.14 X10^3/uL (2.7-7.7); Neutrophil % 52.3 % (47-70); Platelet Count 533 K/mm3 (150-450); RBC Distribution Width CV 13.4 % (11.6-14.6); RBC Distribution Width SD 46.7 fl (35.1-43.9); Red Blood Count 3.46 M/mm3 (4.6-6.2); White Blood Count 7.9 K/mm3 (4.4-11.0)
[2018-06-23 04:07] LABS: POSITIVE COUNT NO; POSITIVE DIFFERENTIAL NO; POSITIVE MORPHOLOGY NO
[2018-06-23 04:20] LABS: Anion Gap 7 (5-15); BUN 20 mg/dL (7-18); BUN/Creat Ratio 22.9 RATIO (10-20); Calcium,Total 8.3 mg/dL (8.5-10.1); Chloride 108 mmol/L (98-107); Creatinine, Serum 0.88 mg/dL (0.70-1.30); EST Glomerular Filtration Rate 97 mL/min (>60); Est Glom Filt Rate - Afr Amer 117 mL/min (>60); Estimated Creatinine Clearance 72.21 ml/min; Glucose 82 mg/dL (74-106); Potassium 4.3 mmol/L (3.5-5.1); Sodium Level 140 mmol/L (136-145)
[2018-06-23 07:16] VITALS: O2SAT 98
[2018-06-23 08:32] VITALS: BP 103/69; PULSE 83; RESP 16; TEMP 36.7; O2SAT 100
--- NOTE | 2018-06-23 09:38 | CT_ITS ---
STUDY: CT SOFT TISSUE NECK WITH CONTRAST REASON FOR EXAM: Male, 53 years old. Hemorrhagic tongue. History of a long-term smoking and alcohol and drug use. RADIATION DOSAGE (If Supplied By Facility): CTDIvol = ( 13.99 ) mGy, DLP = ( 391.30 ) mGycm TECHNIQUE: The patient was scanned in a multi-detector CT scanner. High resolution transaxial imaging was performed following intravenous administration of 100ml ml of Isovue 300 contrast material. Sagittal and coronal images were reconstructed. Individualized dose optimization techniques were used for this CT. COMPARISON: None. FINDINGS: Normal bilateral parotid glands. Normal bilateral animal attendant spaces. Normal bilateral parapharyngeal spaces. Normal bilateral carotid spaces. Normal bilateral sublingual and submandibular glands and spaces. Normal visualized nasopharynx. Normal retropharyngeal space. Normal perivertebral space. Normal visualized bilateral faucial tonsils. There is diffuse enlargement of the tongue with the increased vascularity. The visualized cervical lymph nodes (levels I-) are within normal size limits, and maintain normal morphology. There is no demonstrated solid or cystic mass lesion. There is no abnormal contrast enhancement. Normal epiglottis, bilateral vallecula and hypopharynx. The pre-epiglottic and paraglottic adipose spaces are normal. Normal visualized aryepiglottic folds, vocal cords, and arytenoid-cricoid articulations. Normal subglottic trachea. The left piriform sinus is normal well aerated. Possible soft tissue density within it. Correlation with the endoscopy is recommended. Normal bilateral lobes of the thyroid gland. Normal visualized pulmonary apices. Bilateral maxillary sinusitis as well as ethmoid and sphenoid sinusitis. Normal visualized cervical spine. CT/Soft Tissue Neck WITH Contrast IMPRESSION: Lack of aeration of the left piriform sinus. Correlation with endoscopy is recommended. Diffuse thickening of the tongue with increased vascularity. Electronically Signed: Watson Irene MD at 10:55 EDT Tel [phone], Service support ,
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
[2018-06-23] MEDS: Folic Acid 1 MG Tablet PO (11:57)
[2018-06-23] MEDS: Thiamine Hydrochloride 100 MG Tablet PO (11:57)
[2018-06-23] MEDS: Multivitamins,Ther W-Minerals Tablet 1 TABLET PO (11:57)
[2018-06-23] MEDS: 0.9% NaCl Peripheral Flush Adult/Peds IV (11:58)
--- NOTE | 2018-06-23 13:12 | CASEMGMT ---
SW reviewed chart, pt is homeless. When here last time, pt refused all information on resources. SW woke pt, spoke w/him briefly. Pt did not open his eyes while speaking w/SW. SW asked pt if he would like any resources, if he would like information on shelters. Pt states that shelters don't work for me. Pt states he has no way to get there. SW explained can get him a taxi ride to a [facility], pt still declined information. SW inquired where pt will go when he leaves here, he does not know. Pt states, I will be alright. Pt declined information or referrals for shelters or resources at this time. SW remains available should pt decide he would like some resources. BROOKS Jessica, [employer]
[2018-06-23 13:47] VITALS: BP 98/63; PULSE 107; RESP 16; TEMP 37; O2SAT 99
--- NOTE | 2018-06-23 13:58 | PCM.PN.HOSP ---
Patient Problems: Active and Suspected Problems Oral bleeding (Acute) Anemia (Acute) Subjective: Seen and examined. Patient was admitted yesterday for oropharyngeal bleed for last 2 days. No previous history of oral bleed. 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 No fever or chills. Patient had intermittent oral bleeding last night. H&H slight drop from 12.8-11.6. Vitals/I&O's: Vital Signs Temp Pulse Resp BP Pulse Ox 98.6 F 107 H 16 98/63 99 06/23/18 13:47 06/23/18 13:47 06/23/18 13:47 06/23/18 13:47 06/23/18 13:47 Oxygen Delivery Method Room Air Weight: 117 lb 4.575 oz Body Mass Index (BMI) 18.3 Finger Stick Blood Glucose 58 Intake and Output for Last 24 Hours 06/21/18 06/22/18 06/23/18 23:59 23:59 23:59 Intake Total 981 / 981 Balance 981 / 981 General: Alert, Oriented x3, Cooperative HEENT: Atraumatic, PERRLA, EOMI, Normocephalic Oral: - - No obvious bleeding seen on oral exam. No bloody stain. No obvious tonsillar enlargement. Neck: Supple, No JVD, Negative Carotid Bruits Lungs: Clear to auscultation, Normal air movement Cardiovascular: Regular rate, Normal S1, Normal S2, No murmurs Abdomen: Bowel Sounds Present, Soft, Non Tender, Non-Distended Extremities: No edema, Capillary Refill Less than 3 Seconds Skin: No rashes, No breakdown Musculoskeletal: No Tenderness to Palpation of Joints or Extremities Neurological: Cranial nerves II-XII grossly intact Psych/Mental Status: Normal Affect, Appropriate Laboratory Results 06/22/18 20:55: WBC 10.1, RBC 3.90 L, Hgb 12.8 L, Hct 37.9 L, MCV 97.2 H, MCH 32.8 H, MCHC 33.8, RDW 13.7, RDW Differential 49.3 H, Plt Count 578 H, MPV 9.5, Immature Gran % (Auto) 0.200, Neut % (Auto) 61.6, Lymph % (Auto) 32.9, [place] % (Auto) 4.7, Eos % (Auto) 0.4, Baso % (Auto) 0.2, Absolute Neuts (auto) 6.2, Absolute Lymphs (auto) 3.33, Total Counted Not Reportable 06/22/18 20:55: PT 12.6, INR 0.9, APTT 32.7 06/22/18 20:55: Sodium 135 L, Potassium 4.1, Chloride 101, Carbon Dioxide 26.0, Anion Gap 8, BUN 26 H, Creatinine 0.94, Estim Creat Clear Calc 69.63, Est GFR (MDRD) Af Amer 108, Est GFR (MDRD) Non-Af 89, BUN/Creatinine Ratio 27.7 H, Glucose 85, Calcium 8.8, Total Bilirubin 0.30, AST 21, ALT 35, Alkaline Phosphatase 70, Total Protein 8.0, Albumin 3.2, Globulin 4.8 H, Albumin/Globulin Ratio 0.7 L 06/22/18 20:55: Phosphorus 3.2, Magnesium 2.1 06/23/18 01:10: HIV 1&2 Antibody Non-Reactive 06/23/18 01:10: Hgb 11.6 L, Hct 34.7 L 06/23/18 03:34: Sodium 140, Potassium 4.3, Chloride 108 H, Carbon Dioxide 25.0, Anion Gap 7, BUN 20 H, Creatinine 0.88, Estim Creat Clear Calc 72.21, Est GFR (MDRD) Af Amer 117, Est GFR (MDRD) Non-Af 97, BUN/Creatinine Ratio 22.9 H, Glucose 82, Calcium 8.3 L 06/23/18 03:34: WBC 7.9, RBC 3.46 L, Hgb 11.6 L, Hct 33.9 L, MCV 98.0 H, MCH 33.5 H, MCHC 34.2, RDW 13.4, RDW Differential 46.7 H, Plt Count 533 H, MPV 9.7, Immature Gran % (Auto) 0.300, Neut % (Auto) 52.3, Lymph % (Auto) 39.1, [place] % (Auto) 7.3, Eos % (Auto) 0.6, Baso % (Auto) 0.4, Absolute Neuts (auto) 4.1, Absolute Lymphs (auto) 3.10, Total Counted Not Reportable 06/23/18 06:05: Ethyl Alcohol 3.0 Current Medications Hydrocodone Bitart/Acetaminophen ([place] 5mg-325mg) 1 - 2 tablet PO Q6H PRN PRN PRN Reason: Moderate-severe pain Folic Acid (Folic Acid) 1 mg PO DAILY@0800 [facility] Stop: 06/25/18 08:01 Last Admin: 06/23/18 11:57 Dose: 1 mg Hydralazine HCl (Apresoline Iv) 10 mg IV Q4H PRN PRN PRN Reason: SBP > 160 Pantoprazole Sodium 40 mg/ (Sodium Chloride) 110 mls @ 330 mls/hr IV Q12 [facility] Last Admin: 06/23/18 11:57 Dose: 330 mls/hr Sodium Chloride () 1,000 mls @ 100 mls/hr IV .Q10H [facility] Last Admin: 06/23/18 11:58 Dose: 100 mls/hr Lorazepam (Ativan) 2 mg PO Q2H PRN PRN; Protocol PRN Reason: CIWA score > 8 but <15 Lorazepam (Ativan) 2 mg IV Q2H PRN PRN; Protocol PRN Reason: CIWA score > 8 but <15 Lorazepam (Ativan) 2 mg PO UD PRN; Protocol PRN Reason: CIWA score >/=15. Lorazepam (Ativan) 2 mg IV UD PRN; Protocol PRN Reason: CIWA score >/=15. Magnesium Hydroxide (Milk Of Magnesia) 30 ml PO DAILY PRN PRN PRN Reason: Constipation Morphine Sulfate () 1 - 2 mg IV Q4H PRN PRN PRN Reason: PAIN Multivitamins/Minerals (Multivitamin With Minerals) [facility] Last Admin: 06/23/18 11:57 Dose: 1 tablet Nutritional Formula (Lactose Free) (Ensure Enlive) 120 ml PO 4X/DAY [facility] Last Admin: 06/23/18 13:50 Dose: 120 ml Ondansetron HCl (Zofran) 4 mg IV Q8H PRN PRN PRN Reason: NAUSEA/VOMITING Sodium Chloride () 5 - 30 ml IV UD PRN PRN Reason: SALINE FLUSH Last Admin: 06/23/18 11:58 Dose: 10 ml Thiamine HCl (Vitamin B1) [facility] Stop: 06/25/18 17:01 Last Admin: 06/23/18 11:57 Dose: 100 mg Medical Necessity - Tobacco Use Smoking Status: Current every day smoker Tobacco Use: Cigarettes Assessment/Plan All Active Problems Dehydration (Acute) KAVEH (acute kidney injury) (Acute) Heat exhaustion (Acute) High anion gap metabolic acidosis (Acute) Protein-calorie malnutrition, mild (Acute) Oral bleeding (Acute) Anemia (Acute) The patient is a 53 y/o M, Homeless w/ PMHx: Etoh Abuse, Cannabis daily usage, Tobacco use who presents w/ onset oral bleeding, possibly from his posterior tongue for about 2 days but no prior history of bleeding. Denies history of HIV or other STD. 1. Acute anemia, microcytic secondary to acute oral bleed, exact site unclear: Patient is being admitted on [facility] floor. Patient was seen by ENT surgeon Dr. Cochran. He had flexible endoscope and reported no obvious masses, ulceration or source of bleeding over tongue base, epiglottis, vallecula piriforms and larynx. He suggested CT neck which is ordered. CT images reviewed shows lack of aeration of left pyriform sinus and diffuse thickening of the tongue with increased vascularity. 2. Oral bleed the origin possible tongue or unlikely GI origin : On Protonix. Patient is chronic alcoholic, but nature of bleeding is not typical of esophageal bleed. Dr. Giron has been consulted to evaluate for possible EGD. 3. Polysubstance use: Chronic alcohol use and dependence: Patient drinks 5-6 tall boys, beer per day. On CIWA protocol, MVI, thiamine and folic acid. K4.3. Mag 2.1. Phosphorus 3.2. 4. Chronic smoker, nicotine use and dependence, marijuana smoking: Smoking and marijuana cessation advised. 5. Severe protein calorie malnutrition: Nutrition consult. Diffuse muscle and fat loss. BMI 18. DVT prophylaxis: On SCDs. Pharmacological prophylaxis contraindicated Clinical Impression(s) from Imaging Studies Soft Tissue Neck CT 06/23/18 09:38 IMPRESSION: Lack of aeration of the left piriform sinus. Correlation with endoscopy is recommended. Diffuse thickening of the tongue with increased vascularity. Laboratory Results 06/22/18 20:55: Phosphorus 3.2, Magnesium 2.1 06/23/18 01:10: HIV 1&2 Antibody Non-Reactive 06/23/18 01:10: Hgb 11.6 L, Hct 34.7 L 06/23/18 03:34: Sodium 140, Potassium 4.3, Chloride 108 H, Carbon Dioxide 25.0, Anion Gap 7, BUN 20 H, Creatinine 0.88, Estim Creat Clear Calc 72.21, Est GFR (MDRD) Af Amer 117, Est GFR (MDRD) Non-Af 97, BUN/Creatinine Ratio 22.9 H, Glucose 82, Calcium 8.3 L 06/23/18 03:34: WBC 7.9, RBC 3.46 L, Hgb 11.6 L, Hct 33.9 L, MCV 98.0 H, MCH 33.5 H, MCHC 34.2, RDW 13.4, RDW Differential 46.7 H, Plt Count 533 H, MPV 9.7, Immature Gran % (Auto) 0.300, Neut % (Auto) 52.3, Lymph % (Auto) 39.1, [place] % (Auto) 7.3, Eos % (Auto) 0.6, Baso % (Auto) 0.4, Absolute Neuts (auto) 4.1, Absolute Lymphs (auto) 3.10, Total Counted Not Reportable 06/23/18 06:05: Ethyl Alcohol 3.0 Code Visit Inpatient E&M: 55046 Subs Hosp L3
--- NOTE | 2018-06-23 14:02 | PN_ITS ---
Patient Problems: Active and Suspected Problems Oral bleeding (Acute) Anemia (Acute) Subjective: Seen and examined. Patient was admitted yesterday for oropharyngeal bleed for last 2 days. No previous history of oral bleed. Patient is a heavy smoker, cigarette smoking and marijuana smoking, homeless and obtain most of his meals through free [employer]. No fever or chills. Patient had intermittent oral bleeding last night. H&H slight drop from 12.8- 11.6. Vitals/I&O's: Vital Signs Temp Pulse Resp BP Pulse Ox 98.6 F 107 H 16 98/63 99 06/23/18 13:47 06/23/18 13:47 06/23/18 13:47 06/23/18 13:47 06/23/18 13:47 Oxygen Delivery Method Room Air Weight: 117 lb 4.575 oz Body Mass Index (BMI) 18.3 Finger Stick Blood Glucose 58 Intake and Output for Last 24 Hours 06/21/18 06/22/18 06/23/18 23:59 23:59 23:59 Intake Total 981 / 981 Balance 981 / 981 General: Alert, Oriented x3, Cooperative HEENT: Atraumatic, PERRLA, EOMI, Normocephalic Oral: - - No obvious bleeding seen on oral exam. No bloody stain. No obvious tonsillar enlargement. Neck: Supple, No JVD, Negative Carotid Bruits Lungs: Clear to auscultation, Normal air movement Cardiovascular: Regular rate, Normal S1, Normal S2, No murmurs Abdomen: Bowel Sounds Present, Soft, Non Tender, Non-Distended Extremities: No edema, Capillary Refill Less than 3 Seconds Skin: No rashes, No breakdown Musculoskeletal: No Tenderness to Palpation of Joints or Extremities Neurological: Cranial nerves II-XII grossly intact Psych/Mental Status: Normal Affect, Appropriate Laboratory Results 06/22/18 20:55: WBC 10.1, RBC 3.90 L, Hgb 12.8 L, Hct 37.9 L, MCV 97.2 H, MCH 32.8 H, MCHC 33.8, RDW 13.7, RDW Differential 49.3 H, Plt Count 578 H, MPV 9.5, Immature Gran % (Auto) 0.200, Neut % (Auto) 61.6, Lymph % (Auto) 32.9, [place] % (Auto) 4.7, Eos % (Auto) 0.4, Baso % (Auto) 0.2, Absolute Neuts (auto) 6.2, Absolute Lymphs (auto) 3.33, Total Counted Not Reportable 06/22/18 20:55: PT 12.6, INR 0.9, APTT 32.7 06/22/18 20:55: Sodium 135 L, Potassium 4.1, Chloride 101, Carbon Dioxide 26.0, Anion Gap 8, BUN 26 H, Creatinine 0.94, Estim Creat Clear Calc 69.63, Est GFR (MDRD) Af Amer 108, Est GFR (MDRD) Non-Af 89, BUN/Creatinine Ratio 27.7 H, Glucose 85, Calcium 8.8, Total Bilirubin 0.30, AST 21, ALT 35, Alkaline Phosphatase 70, Total Protein 8.0, Albumin 3.2, Globulin 4.8 H, Albumin/Globulin Ratio 0.7 L 06/22/18 20:55: Phosphorus 3.2, Magnesium 2.1 06/23/18 01:10: HIV 1&2 Antibody Non-Reactive 06/23/18 01:10: Hgb 11.6 L, Hct 34.7 L 06/23/18 03:34: Sodium 140, Potassium 4.3, Chloride 108 H, Carbon Dioxide 25.0, Anion Gap 7, BUN 20 H, Creatinine 0.88, Estim Creat Clear Calc 72.21, Est GFR (MDRD) Af Amer 117, Est GFR (MDRD) Non-Af 97, BUN/Creatinine Ratio 22.9 H, Glucose 82, Calcium 8.3 L 06/23/18 03:34: WBC 7.9, RBC 3.46 L, Hgb 11.6 L, Hct 33.9 L, MCV 98.0 H, MCH 33.5 H, MCHC 34.2, RDW 13.4, RDW Differential 46.7 H, Plt Count 533 H, MPV 9.7, Immature Gran % (Auto) 0.300, Neut % (Auto) 52.3, Lymph % (Auto) 39.1, [place] % (Auto) 7.3, Eos % (Auto) 0.6, Baso % (Auto) 0.4, Absolute Neuts (auto) 4.1, Absolute Lymphs (auto) 3.10, Total Counted Not Reportable 06/23/18 06:05: Ethyl Alcohol 3.0 Current Medications Hydrocodone Bitart/Acetaminophen ([place] 5mg-325mg) 1 - 2 tablet PO Q6H PRN PRN PRN Reason: Moderate-severe pain Folic Acid (Folic Acid) 1 mg PO DAILY@0800 [facility] Stop: 06/25/18 08:01 Last Admin: 06/23/18 11:57 Dose: 1 mg Hydralazine HCl (Apresoline Iv) 10 mg IV Q4H PRN PRN PRN Reason: SBP > 160 Pantoprazole Sodium 40 mg/ (Sodium Chloride) 110 mls @ 330 mls/hr IV Q12 [facility] Last Admin: 06/23/18 11:57 Dose: 330 mls/hr Sodium Chloride () 1,000 mls @ 100 mls/hr IV .Q10H [facility] Last Admin: 06/23/18 11:58 Dose: 100 mls/hr Lorazepam (Ativan) 2 mg PO Q2H PRN PRN; Protocol PRN Reason: CIWA score > 8 but <15 Lorazepam (Ativan) 2 mg IV Q2H PRN PRN; Protocol PRN Reason: CIWA score > 8 but <15 Lorazepam (Ativan) 2 mg PO UD PRN; Protocol PRN Reason: CIWA score >/=15. Lorazepam (Ativan) 2 mg IV UD PRN; Protocol PRN Reason: CIWA score >/=15. Magnesium Hydroxide (Milk Of Magnesia) 30 ml PO DAILY PRN PRN PRN Reason: Constipation Morphine Sulfate () 1 - 2 mg IV Q4H PRN PRN PRN Reason: PAIN Multivitamins/Minerals (Multivitamin With Minerals) [facility] Last Admin: 06/23/18 11:57 Dose: 1 tablet Nutritional Formula (Lactose Free) (Ensure Enlive) 120 ml PO 4X/DAY [facility] Last Admin: 06/23/18 13:50 Dose: 120 ml Ondansetron HCl (Zofran) 4 mg IV Q8H PRN PRN PRN Reason: NAUSEA/VOMITING Sodium Chloride () 5 - 30 ml IV UD PRN PRN Reason: SALINE FLUSH Last Admin: 06/23/18 11:58 Dose: 10 ml Thiamine HCl (Vitamin B1) [facility] Stop: 06/25/18 17:01 Last Admin: 06/23/18 11:57 Dose: 100 mg Medical Necessity - Tobacco Use Smoking Status: Current every day smoker Tobacco Use: Cigarettes Assessment/Plan All Active Problems Dehydration (Acute) KAVEH (acute kidney injury) (Acute) Heat exhaustion (Acute) High anion gap metabolic acidosis (Acute) Protein-calorie malnutrition, mild (Acute) Oral bleeding (Acute) Anemia (Acute) The patient is a 53 y/o M, Homeless w/ PMHx: Etoh Abuse, Cannabis daily usage, Tobacco use who presents w/ onset oral bleeding, possibly from his posterior tongue for about 2 days but no prior history of bleeding. Denies history of HIV or other STD. 1. Acute anemia, microcytic secondary to acute oral bleed, exact site unclear: Patient is being admitted on [facility] floor. Patient was seen by ENT surgeon Dr. Cochran. He had flexible endoscope and reported no obvious masses, ulceration or source of bleeding over tongue base, epiglottis, vallecula piriforms and larynx. He suggested CT neck which is ordered. CT images reviewed shows lack of aeration of left pyriform sinus and diffuse thickening of the tongue with increased vascularity. 2. Oral bleed the origin possible tongue or unlikely GI origin : On Protonix. Patient is chronic alcoholic, but nature of bleeding is not typical of esophageal bleed. Dr. Giron has been consulted to evaluate for possible EGD. 3. Polysubstance use: Chronic alcohol use and dependence: Patient drinks 5-6 tall boys, beer per day. On CIWA protocol, MVI, thiamine and folic acid. K4.3. Mag 2.1. Phosphorus 3.2. 4. Chronic smoker, nicotine use and dependence, marijuana smoking: Smoking and marijuana cessation advised. 5. Severe protein calorie malnutrition: Nutrition consult. Diffuse muscle and fat loss. BMI 18. DVT prophylaxis: On SCDs. Pharmacological prophylaxis contraindicated Clinical Impression(s) from Imaging Studies Soft Tissue Neck CT 06/23/18 09:38 IMPRESSION: Lack of aeration of the left piriform sinus. Correlation with endoscopy is recommended. Diffuse thickening of the tongue with increased vascularity. Laboratory Results 06/22/18 20:55: Phosphorus 3.2, Magnesium 2.1 06/23/18 01:10: HIV 1&2 Antibody Non-Reactive 06/23/18 01:10: Hgb 11.6 L, Hct 34.7 L 06/23/18 03:34: Sodium 140, Potassium 4.3, Chloride 108 H, Carbon Dioxide 25.0, Anion Gap 7, BUN 20 H, Creatinine 0.88, Estim Creat Clear Calc 72.21, Est GFR (MDRD) Af Amer 117, Est GFR (MDRD) Non-Af 97, BUN/Creatinine Ratio 22.9 H, Glucose 82, Calcium 8.3 L 06/23/18 03:34: WBC 7.9, RBC 3.46 L, Hgb 11.6 L, Hct 33.9 L, MCV 98.0 H, MCH 33.5 H, MCHC 34.2, RDW 13.4, RDW Differential 46.7 H, Plt Count 533 H, MPV 9.7, Immature Gran % (Auto) 0.300, Neut % (Auto) 52.3, Lymph % (Auto) 39.1, [place] % (Auto) 7.3, Eos % (Auto) 0.6, Baso % (Auto) 0.4, Absolute Neuts (auto) 4.1, Absolute Lymphs (auto) 3.10, Total Counted Not Reportable 06/23/18 06:05: Ethyl Alcohol 3.0 Code Visit Inpatient E&M: 22543 Subs Hosp L3
[2018-06-23 14:22] LABS: Amphetamine Urine VISTA POSITIVE (<1000 ng/mL); Barbiturate Urine VISTA NEGATIVE (< 200 ng/mL); Benzodiazepine Urine VISTA NEGATIVE (< 200 ng/mL); Cocaine Urine VISTA NEGATIVE (< 300 ng/mL); Ecstacy Urine VISTA NEGATIVE (< 500 ng/mL); Methadone Urine VISTA NEGATIVE (< 300 ng/mL); PCP Urine VISTA NEGATIVE (< 25 ng/mL); THC Urine VISTA POSITIVE (< 50 ng/mL); Vista UDS pH Range 6
[2018-06-23 14:59] LABS: Absolute Lymphocyte Count 1.82 X10^3/ul (0.83-4.51); Absolute Neutrophil Count 4.4 X10^3/uL (2.0-7.7); Basophil# 0.01 X10^3/uL; Basophil% 0.1 % (0-1); Eosinophil# 0.03 X10^3/uL; Eosinophils% 0.4 % (0-5); Hematocrit 35.2 % (40-54); Hemoglobin 11.9 g/dl (13.0-16.5); Lymphocyte # 1.82 X10^3/ul (4.0); Mean Corp Hgb Conc 33.8 g/gl (32-36); Mean Corpuscular Hgb 33.2 pg (27.0-32.0); Mean Corpuscular Volume 98.3 fL (80-94); Mean Platelet Vol. 9.4 fl (6.2-12.0); Monocyte# 0.43 X10^3/uL; Monocyte% 6.4 % (0-10); Neutrophil # 4.44 X10^3/uL (2.7-7.7); Platelet Count 495 K/mm3 (150-450); RBC Distribution Width CV 13.5 % (11.6-14.6); RBC Distribution Width SD 47.2 fl (35.1-43.9); Red Blood Count 3.58 M/mm3 (4.6-6.2); White Blood Count 6.7 K/mm3 (4.4-11.0)
[2018-06-23 15:00] LABS: POSITIVE COUNT NO; POSITIVE DIFFERENTIAL NO; POSITIVE MORPHOLOGY NO
--- NOTE | 2018-06-23 15:24 | DCINST_ITS ---
- Discharge Diagnoses Current Active Problems: Current Active and Chronic Problems Tobacco use (Chronic) ETOH abuse (Chronic) Malnutrition (Chronic) Oral bleeding (Acute) Anemia (Acute) You will use the following diet at home:: Regular Your food should be the consistency of: Regular Discharge Activity: May Not Drive Call your doctor if you observe: Fever of 101 or Higher, Inability to urinate, Shortness of breath, Dizziness, Fainting spells, Swelling in the ankles, Chest pain, - - Vomiting blood/black stool or red stool. Coughing/spitting blood or hemoptysis Instructions: Parts of the Mouth Allergies/Adverse Reactions: Allergies No Known Allergies Allergy (Verified 06/22/18 19:04) Medications to take at Discharge Folic Acid 1 mg PO DAILY@0800 #30 tablet 06/23/18 Multivitamins,Ther W-Minerals [Multivitamin With Minerals] 1 tablet PO DAILYCM tablet 06/23/18 Pantoprazole Sodium [Protonix] 40 mg PO DAILY #30 tablet 06/23/18 Thiamine Hydrochloride [Vitamin B1] 100 mg PO DAILY #30 tablet 06/23/18 The following prescriptions were given: Folic Acid 1 mg PO DAILY@0800 #30 tablet Pantoprazole Sodium [Protonix] 40 mg PO DAILY #30 tablet Thiamine Hydrochloride [Vitamin B1] 100 mg PO DAILY #30 tablet Primary Care Physician: Mike Ibarra DDS [STAFF PHYSICIAN] - Please follow up with your Primary Care Physician in: In 2 weeks Test Results: Test results from this visit will be discussed in further detail at your follow- up appointment, if applicable. Please Follow Up With: Yosi Cochran MD When: in 1 week to schedule outpatient tongue biopsy
--- NOTE | 2018-06-23 15:24 | PCM.DC.SUM ---
Discharge Date and Diagnosis - Problem List Patient Problems: Active and Suspected Problems Oral bleeding (Acute) Anemia (Acute) Date of Admission: 06/22/18 Date of Discharge: 06/23/18 - Primary Discharge Diagnosis Active and Suspected Problems Oral bleeding (Acute) Anemia (Acute) - Secondary Discharge Diagnosis Chronic Problems Elevated liver enzymes (Chronic) Tobacco use (Chronic) ETOH abuse (Chronic) Malnutrition (Chronic) Hospital Course and Treatment Imaging Results: 06/23/18 09:38 CT Neck [Soft Tissue Neck WITH Contrast] [CT] Urgent Summary of Care Provided: [] The patient is a 53 y/o M, Homeless w/ PMHx: Etoh Abuse, Cannabis daily usage, Tobacco use who presents w/ onset oral bleeding, possibly from his posterior tongue for about 2 days but no prior history of bleeding. Denies history of HIV or other STD. 1. Acute anemia, microcytic secondary to acute oral bleed, exact site unclear: Patient is being admitted on [facility] floor. Patient was seen by ENT surgeon Dr. Cochran. He had flexible endoscope and reported no obvious masses, ulceration or source of bleeding over tongue base, epiglottis, vallecula piriforms and larynx. He suggested CT neck which is ordered. CT images reviewed shows lack of aeration of left pyriform sinus and diffuse thickening of the tongue with increased vascularity. This was further discussed with the ENT surgeon Dr. Cochran and he advised to follow-up next week outpatient to schedule tongue biopsy. H&H is stable. It is stayed stable between 11-12 g%, last one 11.9 g%. 2. Oral bleed most probably from tongue unlikely GI origin : On Protonix. Patient is chronic alcoholic, but nature of bleeding is not typical of esophageal bleed. This was discussed with the surgeon Dr. Giron and Dr. Marrero and we agreed that does not look like hematemesis or hemoptysis but from the tongue bleeding. Currently no need for EGD. Discharged on empirically on Protonix as he has chronic alcohol use and dependence. 3. Polysubstance use: Chronic alcohol use and dependence: Patient drinks 5-6 tall boys, beer per day. On CIWA protocol, MVI, thiamine and folic acid. K4.3. Mag 2.1. Phosphorus 3.2. 4. Chronic smoker, nicotine use and dependence, marijuana smoking: Smoking and marijuana cessation advised. 5. Severe protein calorie malnutrition: Nutrition consult. Diffuse muscle and fat loss. BMI 18. DVT prophylaxis: On SCDs. Pharmacological prophylaxis contraindicated Discharge medication reconciliation done. Discharge follow-up instructions completed. Discharge plan discussed with the patient and emphasized on follow-up with Dr. Cochran next week to schedule tongue biopsy. Patient was encouraged for Quitting smoking, marijuana and alcohol. Clinical Impression(s) from Imaging Studies Soft Tissue Neck CT 06/23/18 09:38 IMPRESSION: Lack of aeration of the left piriform sinus. Correlation with endoscopy is recommended. Diffuse thickening of the tongue with increased vascularity. Laboratory Results 06/23/18 03:34: Sodium 140, Potassium 4.3, Chloride 108 H, Carbon Dioxide 25.0, Anion Gap 7, BUN 20 H, Creatinine 0.88, Estim Creat Clear Calc 72.21, Est GFR (MDRD) Af Amer 117, Est GFR (MDRD) Non-Af 97, BUN/Creatinine Ratio 22.9 H, Glucose 82, Calcium 8.3 L 06/23/18 03:34: WBC 7.9, RBC 3.46 L, Hgb 11.6 L, Hct 33.9 L, MCV 98.0 H, MCH 33.5 H, MCHC 34.2, RDW 13.4, RDW Differential 46.7 H, Plt Count 533 H, MPV 9.7, Immature Gran % (Auto) 0.300, Neut % (Auto) 52.3, Lymph % (Auto) 39.1, Iron % (Auto) 7.3, Eos % (Auto) 0.6, Baso % (Auto) 0.4, Absolute Neuts (auto) 4.1, Absolute Lymphs (auto) 3.10, Total Counted Not Reportable 06/23/18 06:05: Ethyl Alcohol 3.0 06/23/18 13:55: Urine Opiates Screen NEGATIVE, Urine Methadone Screen NEGATIVE, Ur Barbiturates Screen NEGATIVE, Ur Phencyclidine Scrn NEGATIVE, Ur Amphetamines Screen POSITIVE H, U Methamphetamin-MDMA NEGATIVE, U Benzodiazepines Scrn NEGATIVE, Urine Cocaine Screen NEGATIVE, U Cannabinoids Screen POSITIVE H, Ur Drug Screen Comment 06/23/18 14:45: WBC 6.7, RBC 3.58 L, Hgb 11.9 L, Hct 35.2 L, MCV 98.3 H, MCH 33.2 H, MCHC 33.8, RDW 13.5, RDW Differential 47.2 H, Plt Count 495 H, MPV 9.4, Immature Gran % (Auto) 0.100, Neut % (Auto) 66.0, Lymph % (Auto) 27.0, Iron % (Auto) 6.4, Eos % (Auto) 0.4, Baso % (Auto) 0.1, Absolute Neuts (auto) 4.4, Absolute Lymphs (auto) 1.82, Total Counted Not Reportable Patient Problems: Active and Suspected Problems Oral bleeding (Acute) Anemia (Acute) Subjective: Please see progress note of today. Detail history including signs and symptoms of physical exam described. - Physical Exam Vital Signs Temp Pulse Resp BP Pulse Ox 98.6 F 107 H 16 98/63 99 06/23/18 13:47 06/23/18 13:47 06/23/18 13:47 06/23/18 13:47 06/23/18 13:47 Oxygen Delivery Method Room Air Weight: 117 lb 4.575 oz Body Mass Index (BMI) 18.3 Finger Stick Blood Glucose 58 Intake and Output for Last 24 Hours 06/21/18 06/22/18 06/23/18 23:59 23:59 23:59 Intake Total 981 / 981 Balance 981 / 981 Laboratory Tests Past 24 Hrs 06/22/18 06/22/18 06/22/18 20:55 20:55 20:55 WBC 10.1 RBC 3.90 L Hgb 12.8 L Hct 37.9 L MCV 97.2 H MCH 32.8 H MCHC 33.8 RDW 13.7 RDW Differential 49.3 H Plt Count 578 H MPV 9.5 Immature Gran % (Auto) 0.200 Neut % (Auto) 61.6 Lymph % (Auto) 32.9 Iron % (Auto) 4.7 Eos % (Auto) 0.4 Baso % (Auto) 0.2 Absolute Neuts (auto) 6.2 Absolute Lymphs (auto) 3.33 Total Counted Not Reportable PT 12.6 INR 0.9 APTT 32.7 Sodium 135 L Potassium 4.1 Chloride 101 Carbon Dioxide 26.0 Anion Gap 8 BUN 26 H Creatinine 0.94 Estim Creat Clear Calc 69.63 Est GFR (MDRD) Af Amer 108 Est GFR (MDRD) Non-Af 89 BUN/Creatinine Ratio 27.7 H Glucose 85 Calcium 8.8 Phosphorus Magnesium Total Bilirubin 0.30 AST 21 ALT 35 Alkaline Phosphatase 70 Total Protein 8.0 Albumin 3.2 Globulin 4.8 H Albumin/Globulin Ratio 0.7 L Urine Opiates Screen Urine Methadone Screen Ur Barbiturates Screen Ur Phencyclidine Scrn Ur Amphetamines Screen U Methamphetamin-MDMA U Benzodiazepines Scrn Urine Cocaine Screen U Cannabinoids Screen Ur Drug Screen Comment Ethyl Alcohol HIV 1&2 Antibody 06/22/18 06/23/18 06/23/18 20:55 01:10 01:10 WBC RBC Hgb 11.6 L Hct 34.7 L MCV MCH MCHC RDW RDW Differential Plt Count MPV Immature Gran % (Auto) Neut % (Auto) Lymph % (Auto) Iron % (Auto) Eos % (Auto) Baso % (Auto) Absolute Neuts (auto) Absolute Lymphs (auto) Total Counted PT INR APTT Sodium Potassium Chloride Carbon Dioxide Anion Gap BUN Creatinine Estim Creat Clear Calc Est GFR (MDRD) Af Amer Est GFR (MDRD) Non-Af BUN/Creatinine Ratio Glucose Calcium Phosphorus 3.2 Magnesium 2.1 Total Bilirubin AST ALT Alkaline Phosphatase Total Protein Albumin Globulin Albumin/Globulin Ratio Urine Opiates Screen Urine Methadone Screen Ur Barbiturates Screen Ur Phencyclidine Scrn Ur Amphetamines Screen U Methamphetamin-MDMA U Benzodiazepines Scrn Urine Cocaine Screen U Cannabinoids Screen Ur Drug Screen Comment Ethyl Alcohol HIV 1&2 Antibody Non-Reactive 06/23/18 06/23/18 06/23/18 03:34 03:34 06:05 WBC 7.9 RBC 3.46 L Hgb 11.6 L Hct 33.9 L MCV 98.0 H MCH 33.5 H MCHC 34.2 RDW 13.4 RDW Differential 46.7 H Plt Count 533 H MPV 9.7 Immature Gran % (Auto) 0.300 Neut % (Auto) 52.3 Lymph % (Auto) 39.1 Iron % (Auto) 7.3 Eos % (Auto) 0.6 Baso % (Auto) 0.4 Absolute Neuts (auto) 4.1 Absolute Lymphs (auto) 3.10 Total Counted Not Reportable PT INR APTT Sodium 140 Potassium 4.3 Chloride 108 H Carbon Dioxide 25.0 Anion Gap 7 BUN 20 H Creatinine 0.88 Estim Creat Clear Calc 72.21 Est GFR (MDRD) Af Amer 117 Est GFR (MDRD) Non-Af 97 BUN/Creatinine Ratio 22.9 H Glucose 82 Calcium 8.3 L Phosphorus Magnesium Total Bilirubin AST ALT Alkaline Phosphatase Total Protein Albumin Globulin Albumin/Globulin Ratio Urine Opiates Screen Urine Methadone Screen Ur Barbiturates Screen Ur Phencyclidine Scrn Ur Amphetamines Screen U Methamphetamin-MDMA U Benzodiazepines Scrn Urine Cocaine Screen U Cannabinoids Screen Ur Drug Screen Comment Ethyl Alcohol 3.0 HIV 1&2 Antibody 06/23/18 06/23/18 13:55 14:45 WBC 6.7 RBC 3.58 L Hgb 11.9 L Hct 35.2 L MCV 98.3 H MCH 33.2 H MCHC 33.8 RDW 13.5 RDW Differential 47.2 H Plt Count 495 H MPV 9.4 Immature Gran % (Auto) 0.100 Neut % (Auto) 66.0 Lymph % (Auto) 27.0 Iron % (Auto) 6.4 Eos % (Auto) 0.4 Baso % (Auto) 0.1 Absolute Neuts (auto) 4.4 Absolute Lymphs (auto) 1.82 Total Counted Not Reportable PT INR APTT Sodium Potassium Chloride Carbon Dioxide Anion Gap BUN Creatinine Estim Creat Clear Calc Est GFR (MDRD) Af Amer Est GFR (MDRD) Non-Af BUN/Creatinine Ratio Glucose Calcium Phosphorus Magnesium Total Bilirubin AST ALT Alkaline Phosphatase Total Protein Albumin Globulin Albumin/Globulin Ratio Urine Opiates Screen NEGATIVE Urine Methadone Screen NEGATIVE Ur Barbiturates Screen NEGATIVE Ur Phencyclidine Scrn NEGATIVE Ur Amphetamines Screen POSITIVE H U Methamphetamin-MDMA NEGATIVE U Benzodiazepines Scrn NEGATIVE Urine Cocaine Screen NEGATIVE U Cannabinoids Screen POSITIVE H Ur Drug Screen Comment Ethyl Alcohol HIV 1&2 Antibody Discharge Activity: May Not Drive Call your doctor if you observe: Fever of 101 or Higher, Inability to urinate, Shortness of breath, Dizziness, Fainting spells, Swelling in the ankles, Chest pain, - - Vomiting blood/black stool or red stool. Coughing/spitting blood or hemoptysis Home Medications: Medications to take at Discharge Folic Acid 1 mg PO DAILY@0800 #30 tablet 06/23/18 Multivitamins,Ther W-Minerals [Multivitamin With Minerals] 1 tablet PO DAILYCM tablet 06/23/18 Pantoprazole Sodium [Protonix] 40 mg PO DAILY #30 tablet 06/23/18 Thiamine Hydrochloride [Vitamin B1] 100 mg PO DAILY #30 tablet 06/23/18 Following Prescrptions Were Given to Patient: Folic Acid 1 mg PO DAILY@0800 #30 tablet Pantoprazole Sodium [Protonix] 40 mg PO DAILY #30 tablet Thiamine Hydrochloride [Vitamin B1] 100 mg PO DAILY #30 tablet Primary Care Physician: Mike Ibarra DDS [STAFF PHYSICIAN] - Please follow up with your Primary Care Physician in: In 2 weeks Please Follow Up With: Yosi Cochran MD When: in 1 week to schedule outpatient tongue biopsy Patient Instructions: Parts of the Mouth Medical Necessity - Tobacco Use Smoking Status: Current every day smoker Tobacco Use: Cigarettes Meaningful Use Info Meaningful Use Diagnoses (Choose all that apply): None applicable Code Visit Inpatient E&M: 61592 [facility]
--- NOTE | 2018-06-23 15:30 | DS.PCM_ITS ---
Discharge Date and Diagnosis - Problem List Patient Problems: Active and Suspected Problems Oral bleeding (Acute) Anemia (Acute) Date of Admission: 06/22/18 Date of Discharge: 06/23/18 - Primary Discharge Diagnosis Active and Suspected Problems Oral bleeding (Acute) Anemia (Acute) - Secondary Discharge Diagnosis Chronic Problems Elevated liver enzymes (Chronic) Tobacco use (Chronic) ETOH abuse (Chronic) Malnutrition (Chronic) Hospital Course and Treatment Imaging Results: 06/23/18 09:38 CT Neck [Soft Tissue Neck WITH Contrast] [CT] Urgent Summary of Care Provided: [] The patient is a 53 y/o M, Homeless w/ PMHx: Etoh Abuse, Cannabis daily usage, Tobacco use who presents w/ onset oral bleeding, possibly from his posterior tongue for about 2 days but no prior history of bleeding. Denies history of HIV or other STD. 1. Acute anemia, microcytic secondary to acute oral bleed, exact site unclear: Patient is being admitted on [facility] floor. Patient was seen by ENT surgeon Dr. Cochran. He had flexible endoscope and reported no obvious masses, ulceration or source of bleeding over tongue base, epiglottis, vallecula piriforms and larynx. He suggested CT neck which is ordered. CT images reviewed shows lack of aeration of left pyriform sinus and diffuse thickening of the tongue with increased vascularity. This was further discussed with the ENT surgeon Dr. Cochran and he advised to follow-up next week outpatient to schedule tongue biopsy. H&H is stable. It is stayed stable between 11-12 g%, last one 11.9 g%. 2. Oral bleed most probably from tongue unlikely GI origin : On Protonix. Patient is chronic alcoholic, but nature of bleeding is not typical of esophagea l bleed. This was discussed with the surgeon Dr. Giron and Dr. Marrero and we agreed that does not look like hematemesis or hemoptysis but from the tongue bleeding. Currently no need for EGD. Discharged on empirically on Protonix as he has chronic alcohol use and dependence. 3. Polysubstance use: Chronic alcohol use and dependence: Patient drinks 5-6 tall boys, beer per day. On CIWA protocol, MVI, thiamine and folic acid. K4.3. Mag 2.1. Phosphorus 3.2. 4. Chronic smoker, nicotine use and dependence, marijuana smoking: Smoking and marijuana cessation advised. 5. Severe protein calorie malnutrition: Nutrition consult. Diffuse muscle and fat loss. BMI 18. DVT prophylaxis: On SCDs. Pharmacological prophylaxis contraindicated Discharge medication reconciliation done. Discharge follow-up instructions completed. Discharge plan discussed with the patient and emphasized on follow- up with Dr. Cochran next week to schedule tongue biopsy. Patient was encouraged for Quitting smoking, marijuana and alcohol. Clinical Impression(s) from Imaging Studies Soft Tissue Neck CT 06/23/18 09:38 IMPRESSION: Lack of aeration of the left piriform sinus. Correlation with endoscopy is recommended. Diffuse thickening of the tongue with increased vascularity. Laboratory Results 06/23/18 03:34: Sodium 140, Potassium 4.3, Chloride 108 H, Carbon Dioxide 25.0, Anion Gap 7, BUN 20 H, Creatinine 0.88, Estim Creat Clear Calc 72.21, Est GFR (MDRD) Af Amer 117, Est GFR (MDRD) Non-Af 97, BUN/Creatinine Ratio 22.9 H, Glucose 82, Calcium 8.3 L 06/23/18 03:34: WBC 7.9, RBC 3.46 L, Hgb 11.6 L, Hct 33.9 L, MCV 98.0 H, MCH 33.5 H, MCHC 34.2, RDW 13.4, RDW Differential 46.7 H, Plt Count 533 H, MPV 9.7, Immature Gran % (Auto) 0.300, Neut % (Auto) 52.3, Lymph % (Auto) 39.1, [place] % (Auto) 7.3, Eos % (Auto) 0.6, Baso % (Auto) 0.4, Absolute Neuts (auto) 4.1, Absolute Lymphs (auto) 3.10, Total Counted Not Reportable 06/23/18 06:05: Ethyl Alcohol 3.0 06/23/18 13:55: Urine Opiates Screen NEGATIVE, Urine Methadone Screen NEGATIVE, Ur Barbiturates Screen NEGATIVE, Ur Phencyclidine Scrn NEGATIVE, Ur Amphetamines Screen POSITIVE H, U Methamphetamin-MDMA NEGATIVE, U Benzodiazepines Scrn NEGATIVE, Urine Cocaine Screen NEGATIVE, U Cannabinoids Screen POSITIVE H, Ur Drug Screen Comment 06/23/18 14:45: WBC 6.7, RBC 3.58 L, Hgb 11.9 L, Hct 35.2 L, MCV 98.3 H, MCH 33.2 H, MCHC 33.8, RDW 13.5, RDW Differential 47.2 H, Plt Count 495 H, MPV 9.4, Immature Gran % (Auto) 0.100, Neut % (Auto) 66.0, Lymph % (Auto) 27.0, [place] % (Auto) 6.4, Eos % (Auto) 0.4, Baso % (Auto) 0.1, Absolute Neuts (auto) 4.4, Absolute Lymphs (auto) 1.82, Total Counted Not Reportable Patient Problems: Active and Suspected Problems Oral bleeding (Acute) Anemia (Acute) Subjective: Please see progress note of today. Detail history including signs and symptoms of physical exam described. - Physical Exam Vital Signs Temp Pulse Resp BP Pulse Ox 98.6 F 107 H 16 98/63 99 06/23/18 13:47 06/23/18 13:47 06/23/18 13:47 06/23/18 13:47 06/23/18 13:47 Oxygen Delivery Method Room Air Weight: 117 lb 4.575 oz Body Mass Index (BMI) 18.3 Finger Stick Blood Glucose 58 Intake and Output for Last 24 Hours 06/21/18 06/22/18 06/23/18 23:59 23:59 23:59 Intake Total 981 / 981 Balance 981 / 981 Laboratory Tests Past 24 Hrs 06/22/18 06/22/18 06/22/18 20:55 20:55 20:55 WBC 10.1 RBC 3.90 L Hgb 12.8 L Hct 37.9 L MCV 97.2 H MCH 32.8 H MCHC 33.8 RDW 13.7 RDW Differential 49.3 H Plt Count 578 H MPV 9.5 Immature Gran % (Auto) 0.200 Neut % (Auto) 61.6 Lymph % (Auto) 32.9 [place] % (Auto) 4.7 Eos % (Auto) 0.4 Baso % (Auto) 0.2 Absolute Neuts (auto) 6.2 Absolute Lymphs (auto) 3.33 Total Counted Not Reportable PT 12.6 INR 0.9 APTT 32.7 Sodium 135 L Potassium 4.1 Chloride 101 Carbon Dioxide 26.0 Anion Gap 8 BUN 26 H Creatinine 0.94 Estim Creat Clear Calc 69.63 Est GFR (MDRD) Af Amer 108 Est GFR (MDRD) Non-Af 89 BUN/Creatinine Ratio 27.7 H Glucose 85 Calcium 8.8 Phosphorus Magnesium Total Bilirubin 0.30 AST 21 ALT 35 Alkaline Phosphatase 70 Total Protein 8.0 Albumin 3.2 Globulin 4.8 H Albumin/Globulin Ratio 0.7 L Urine Opiates Screen Urine Methadone Screen Ur Barbiturates Screen Ur Phencyclidine Scrn Ur Amphetamines Screen U Methamphetamin-MDMA U Benzodiazepines Scrn Urine Cocaine Screen U Cannabinoids Screen Ur Drug Screen Comment Ethyl Alcohol HIV 1&2 Antibody 06/22/18 06/23/18 06/23/18 20:55 01:10 01:10 WBC RBC Hgb 11.6 L Hct 34.7 L MCV MCH MCHC RDW RDW Differential Plt Count MPV Immature Gran % (Auto) Neut % (Auto) Lymph % (Auto) [place] % (Auto) Eos % (Auto) Baso % (Auto) Absolute Neuts (auto) Absolute Lymphs (auto) Total Counted PT INR APTT Sodium Potassium Chloride Carbon Dioxide Anion Gap BUN Creatinine Estim Creat Clear Calc Est GFR (MDRD) Af Amer Est GFR (MDRD) Non-Af BUN/Creatinine Ratio Glucose Calcium Phosphorus 3.2 Magnesium 2.1 Total Bilirubin AST ALT Alkaline Phosphatase Total Protein Albumin Globulin Albumin/Globulin Ratio Urine Opiates Screen Urine Methadone Screen Ur Barbiturates Screen Ur Phencyclidine Scrn Ur Amphetamines Screen U Methamphetamin-MDMA U Benzodiazepines Scrn Urine Cocaine Screen U Cannabinoids Screen Ur Drug Screen Comment Ethyl Alcohol HIV 1&2 Antibody Non-Reactive 06/23/18 06/23/18 06/23/18 03:34 03:34 06:05 WBC 7.9 RBC 3.46 L Hgb 11.6 L Hct 33.9 L MCV 98.0 H MCH 33.5 H MCHC 34.2 RDW 13.4 RDW Differential 46.7 H Plt Count 533 H MPV 9.7 Immature Gran % (Auto) 0.300 Neut % (Auto) 52.3 Lymph % (Auto) 39.1 [place] % (Auto) 7.3 Eos % (Auto) 0.6 Baso % (Auto) 0.4 Absolute Neuts (auto) 4.1 Absolute Lymphs (auto) 3.10 Total Counted Not Reportable PT INR APTT Sodium 140 Potassium 4.3 Chloride 108 H Carbon Dioxide 25.0 Anion Gap 7 BUN 20 H Creatinine 0.88 Estim Creat Clear Calc 72.21 Est GFR (MDRD) Af Amer 117 Est GFR (MDRD) Non-Af 97 BUN/Creatinine Ratio 22.9 H Glucose 82 Calcium 8.3 L Phosphorus Magnesium Total Bilirubin AST ALT Alkaline Phosphatase Total Protein Albumin Globulin Albumin/Globulin Ratio Urine Opiates Screen Urine Methadone Screen Ur Barbiturates Screen Ur Phencyclidine Scrn Ur Amphetamines Screen U Methamphetamin-MDMA U Benzodiazepines Scrn Urine Cocaine Screen U Cannabinoids Screen Ur Drug Screen Comment Ethyl Alcohol 3.0 HIV 1&2 Antibody 06/23/18 06/23/18 13:55 14:45 WBC 6.7 RBC 3.58 L Hgb 11.9 L Hct 35.2 L MCV 98.3 H MCH 33.2 H MCHC 33.8 RDW 13.5 RDW Differential 47.2 H Plt Count 495 H MPV 9.4 Immature Gran % (Auto) 0.100 Neut % (Auto) 66.0 Lymph % (Auto) 27.0 [place] % (Auto) 6.4 Eos % (Auto) 0.4 Baso % (Auto) 0.1 Absolute Neuts (auto) 4.4 Absolute Lymphs (auto) 1.82 Total Counted Not Reportable PT INR APTT Sodium Potassium Chloride Carbon Dioxide Anion Gap BUN Creatinine Estim Creat Clear Calc Est GFR (MDRD) Af Amer Est GFR (MDRD) Non-Af BUN/Creatinine Ratio Glucose Calcium Phosphorus Magnesium Total Bilirubin AST ALT Alkaline Phosphatase Total Protein Albumin Globulin Albumin/Globulin Ratio Urine Opiates Screen NEGATIVE Urine Methadone Screen NEGATIVE Ur Barbiturates Screen NEGATIVE Ur Phencyclidine Scrn NEGATIVE Ur Amphetamines Screen POSITIVE H U Methamphetamin-MDMA NEGATIVE U Benzodiazepines Scrn NEGATIVE Urine Cocaine Screen NEGATIVE U Cannabinoids Screen POSITIVE H Ur Drug Screen Comment Ethyl Alcohol HIV 1&2 Antibody Discharge Activity: May Not Drive Call your doctor if you observe: Fever of 101 or Higher, Inability to urinate, Shortness of breath, Dizziness, Fainting spells, Swelling in the ankles, Chest pain, - - Vomiting blood/black stool or red stool. Coughing/spitting blood or hemoptysis Home Medications: Medications to take at Discharge Folic Acid 1 mg PO DAILY@0800 #30 tablet 06/23/18 Multivitamins,Ther W-Minerals [Multivitamin With Minerals] 1 tablet PO DAILYCM tablet 06/23/18 Pantoprazole Sodium [Protonix] 40 mg PO DAILY #30 tablet 06/23/18 Thiamine Hydrochloride [Vitamin B1] 100 mg PO DAILY #30 tablet 06/23/18 Following Prescrptions Were Given to Patient: Folic Acid 1 mg PO DAILY@0800 #30 tablet Pantoprazole Sodium [Protonix] 40 mg PO DAILY #30 tablet Thiamine Hydrochloride [Vitamin B1] 100 mg PO DAILY #30 tablet Primary Care Physician: Mike Ibarra DDS [STAFF PHYSICIAN] - Please follow up with your Primary Care Physician in: In 2 weeks Please Follow Up With: Yosi Cochran MD When: in 1 week to schedule outpatient tongue biopsy Patient Instructions: Parts of the Mouth Medical Necessity - Tobacco Use Smoking Status: Current every day smoker Tobacco Use: Cigarettes Meaningful Use Info Meaningful Use Diagnoses (Choose all that apply): None applicable Code Visit Inpatient E&M: 67652 [facility]
== END 2018-06-23 16:12 | disposition home or self-care (01) ==
LOC: ED 20:56 → MS2 23:42
PROVIDERS: Admitting Provider Family Medicine; Emergency Provider Emergency Medicine; Visit Provider Internal Medicine
DX: K13.79 Other lesions of oral mucosa (principal); Z59.0 Homelessness; F10.20 Alcohol dependence, uncomplicated; E43 Unspecified severe protein-calorie malnutrition; Z68.1 Body mass index [BMI] 19.9 or less, adult; F17.210 Nicotine dependence, cigarettes, uncomplicated; E87.1 Hypo-osmolality and hyponatremia; E86.0 Dehydration; N17.9 Acute kidney failure, unspecified; D53.9 Nutritional anemia, unspecified; R74.8 Abnormal levels of other serum enzymes
CPT/HCPCS: 36415; 70491; 80048; 80053; 80307; 80320; 83735; 84100; 85014; 85018; 85025; 85610; 85730; 86703; 96361; 96365; 96366; 97802; 99218; 99282; 99406; J7030; Q9967; A4216; G0378; G0480

== ENCOUNTER 2019-05-22 16:20 | Emergency (ER) | payer MEDICAID, SELFPAY ==
[2019-05-22 16:21] VITALS: BP 106/78; PULSE 129; RESP 18; TEMP 37; O2SAT 97; BMI 19.1
--- NOTE | 2019-05-22 17:33 | ED.VISSUMM ---
- ER Visit Summary Date of Service: 05/22/19 Chief Complaint: [Requesting new dressing for his wound on his right thumb] History of Present Illness: The patient is a 53 M [presents to the emergency department stating that he missed his appointment with wound center today because he was not discharged from prison in time for his appointment. Patient tells me that 6 days ago he had surgery on his right thumb for an infection at [facility]. Patient states that he has not taken any antibiotics. Patient states that he had the dressing changed once in prison and they made an appointment for him to be seen in the wound center. He denies any fevers. Patient complains of severe pain. He has no other medical history.] Physical Examination: [HEENT-PERRLA, EOMI. Cranial nerves II through XII grossly intact. TMs clear. Mucous membranes moist. No adenopathy. Cardiovascular-regular rate and rhythm without murmur or ectopy Lungs-clear to auscultation, chest wall stable without crepitus or subcu emphysema Abdomen-normoactive bowel sounds, soft, nontender, no rebound or rigidity, no peritoneal signs. Extremities-intact ?4, normal range of motion, normal pulses. Right thumb-patient has diffuse swelling of the thumb with inability to flex at the IP joint. Patient has 2 open surgical wounds secondary to one over the proximal phalanx on 1 over the distal phalanx. Patient has large amount of purulent debris expressed from the proximal wound. Patient has diffuse erythema about the thumb and hand.] Test Results: [CBC with differential white count 7.2, hemoglobin 13, hematocrit 39, platelets 509., She is unremarkable. Lactate was 2.0.] Emergency Department Course and Treatment: [Had an IV line established and was medicated with Unasyn and vancomycin IV.] Treatment Plan: [Transfer back to [facility]. Where patient had surgery.] Disposition: [Transfer] Impression: [Right thumb cellulitis/tenosynovitis status post surgical intervention] This note was generated with [employer] dictation software. It may contain incorrect words, spelling, and punctuation that were not noted in review of the chart prior to signing ED Disposition - Plan for ED Patient: Referrals: Care Physician,No Primary [Primary Care Provider] -
[2019-05-22 18:00] LABS: Absolute Lymphocyte Count 1.66 X10^3/uL (0.83-4.51); Absolute Neutrophil Count 4.9 X10^3/uL (2.0-7.7); Basophil# 0.06 X10^3/uL; Basophil% 0.8 % (0-1); Eosinophil# 0.02 X10^3/uL; Eosinophils% 0.3 % (0-5); Hematocrit 39.5 % (40-54); Hemoglobin 13.4 g/dL (13.0-16.5); Lymphocyte # 1.66 X10^3/ul (4.0); Lymphocyte % 23.1 % (19-41); Mean Corp Hgb Conc 33.9 g/dL (32-36); Mean Corpuscular Hgb 32.7 pg (27.0-32.0); Mean Corpuscular Volume 96.3 fL (80-94); Mean Platelet Vol. 9.9 fl (6.2-12.0); Monocyte# 0.49 X10^3/uL; Monocyte% 6.8 % (0-10); NRBC Flagged by Analyzer 0 % (0-5); Neutrophil # 4.93 X10^3/uL (2.7-7.7); Neutrophil % 68.7 % (47-70); Platelet Count 509 K/mm3 (150-450); RBC Distribution Width CV 13.2 % (11.6-14.6); RBC Distribution Width SD 46.6 fl (35.1-43.9); White Blood Count 7.2 K/mm3 (4.4-11.0)
[2019-05-22] MEDS: Morphine 4 MG/ML Syringe IV (18:02)
[2019-05-22] MEDS: 0.9% Normal Saline 1,000 ML 150 ML IV ×2 (18:02→19:05)
[2019-05-22] MEDS: Ondansetron 4 MG/2 ML Vial IV (18:02)
[2019-05-22 18:06] LABS: Anion Gap 7 (5-15); BUN 19 mg/dL (7-18); BUN/Creat Ratio 14.4 RATIO (10-20); Calcium,Total 9.2 mg/dL (8.5-10.1); Chloride 103 mmol/L (98-107); Creatinine, Serum 1.32 mg/dL (0.70-1.30); EST Glomerular Filtration Rate 60 mL/min (>60); Est Glom Filt Rate - Afr Amer 72 mL/min (>60); Estimated Creatinine Clearance 50.16 ml/min; Glucose 100 mg/dL (74-106); Potassium 4.3 mmol/L (3.5-5.1); Sodium Level 136 mmol/L (136-145)
[2019-05-22] MEDS: DiphenhydrAMINE 50 MG/ML Syringe 25 MG IV (18:16)
--- NOTE | 2019-05-22 18:26 | ED.RN ---
LAB WITH CRITICAL VALUE OF 2.[address] PONCE NOTIFIED AT THIS TIME.
[2019-05-22 19:35] VITALS: BP 115/78; PULSE 72; RESP 18; O2SAT 100
[2019-05-22 21:46] LABS: Reflex Lactate? Y
--- NOTE | 2019-05-24 10:49 | ED.RN ---
Pt has MRSA results from wound culture. He had been transferred to [facility] from here. I called [facility] and was informed the pt was no longer there. He has no phone number available and is listed as homeless.
== END 2019-05-22 20:15 | disposition short-term general hospital (02) ==
PROVIDERS: Emergency Provider Emergency Medicine
DX: T81.40XA Infection following a procedure, unspecified, initial encounter (principal); L03.011 Cellulitis of right finger; M65.9 Synovitis and tenosynovitis, unspecified; Z72.0 Tobacco use
CPT/HCPCS: 80048; 83605; 85025; 87070; 87077; 87186; 87205; 96361; 96365; 96368; 96374; 96375; 99284; J7030; J0295; J2405

== ENCOUNTER 2019-06-16 18:13 | Emergency (ER) | payer MEDICAID, SELFPAY ==
[2019-06-16 18:14] VITALS: BP 96/52; PULSE 99; RESP 15; TEMP 36.8; O2SAT 99; BMI 19.3
--- NOTE | 2019-06-16 18:35 | CT_ITS ---
STUDY: CT CERVICAL SPINE WITHOUT CONTRAST REASON FOR EXAM: Male, 54 years old. Trauma RADIATION DOSAGE (If Supplied By Facility): CTDIvol = ( 16.19 ) mGy, DLP = ( 308.33 ) mGycm TECHNIQUE: High resolution transaxial imaging was performed without contrast material. Sagittal and coronal images were reconstructed. Individualized dose optimization techniques were used for this CT. COMPARISON: None FINDINGS: Craniocervical junction and cervical spine are intact and aligned. Mineralization is normal. Paraspinous soft tissues are normal. Spinal canal is patent at all levels. CT/Spine Cervical without Contras IMPRESSION: 1. Unremarkable cervical spine. 2. No acute osseous injury. Electronically Signed: Carmelo Nova, at 19:37 EDT Tel , Service support ,
--- NOTE | 2019-06-16 18:35 | RAD_ITS ---
STUDY: X-RAY - RIGHT HAND, ATTENTION FIRST FINGER REASON FOR EXAM: Male, 54 years old. Injury after falling. TECHNIQUE: 3 view(s) of the thumb were obtained. COMPARISON: None. FINDINGS: No visible fracture. No osseous destruction. Alignment anatomic. Mild degenerative changes. Soft tissues unremarkable. RAD/Finger(s) Min 2 Views IMPRESSION: No acute osseous abnormality. Electronically Signed: Davonte Gilliland, at 19:29 EDT Tel , Service support ,
--- NOTE | 2019-06-16 18:35 | EKG12_ITS ---
Test Reason : FALL Blood Pressure : / mmHG Vent. Rate : 077 BPM Atrial Rate : 077 BPM P-R Int : 148 ms QRS Dur : 074 ms QT Int : 346 ms P-R-T Axes : 074 -36 054 degrees QTc Int : 391 ms Normal sinus rhythm Left axis deviation Minimal voltage criteria for LVH, may be normal variant Increased R/S ratio in V1, consider early transition or posterior infarct Abnormal ECG Confirmed by ROBIN MICHEL, VARGHESE ([id number]), boiler testing technician ZAYNAB GOMEZ ([id number]) on 06/22/2019 10:10:41 AM Referred By: GAMAL Confirmed By:VARGHESE KELLY MD
--- NOTE | 2019-06-16 18:35 | CT_ITS ---
STUDY: CT BRAIN WITHOUT CONTRAST REASON FOR EXAM: Male, 54 years old. Trauma RADIATION DOSAGE (If Supplied By Facility): CTDIvol = ( 44.99 ) mGy, DLP = ( 1043.86 ) mGycm TECHNIQUE: Transaxial CT imaging of the brain was performed without administration of intravenous contrast material. Individualized dose optimization techniques were used for this CT. COMPARISON: 09 September 2015. FINDINGS: Examination is mildly degraded due to motion artifact by the patient. Brain parenchyma is without focal lesions, mass effect, acute intracranial hemorrhage, extra parenchymal fluid collections, hydrocephalus or herniation. The skull is intact. CT/Brain/Head without Contrast IMPRESSION: 1. Normal CT brain. Electronically Signed: Carmelo Nova, at 19:33 EDT Tel , Service support ,
--- NOTE | 2019-06-16 18:50 | ED.RN ---
PATIENT REFUSED IV. DR. YEUNG NOTIFIED.
[2019-06-16 18:51] VITALS: O2SAT 98
--- NOTE | 2019-06-16 19:05 | RAD_ITS ---
STUDY: X-RAY CHEST REASON FOR EXAM: Male, 54 years old. Patient fell. TECHNIQUE: AP upright CXR COMPARISON: 05/16/2018 CXR FINDINGS: No apparent pneumothorax, pneumonia, pleural effusion, or edema. Cardiac silhouette, remy and mediastinal contours are within normal limits. No acute osseous abnormality. No evidence of free air under the diaphragm. RAD/Chest 1 View (Portable) IMPRESSION: Negative chest radiograph. Electronically Signed: Toywilson Talat, at 19:28 EDT Tel , Service support ,
[2019-06-16 19:25] VITALS: BP 122/106; PULSE 78; RESP 19; O2SAT 97
[2019-06-16] MEDS: Morphine 4 MG/ML Syringe IV (19:39)
[2019-06-16] MEDS: Ondansetron 4 MG/2 ML Vial IV (19:48)
--- NOTE | 2019-06-16 20:44 | ED.VISSUMM ---
- ER Visit Summary Date of Service: 06/16/19 Chief Complaint: Fall History of Present Illness: The patient is a 54 M with no primary care physician. He reports that he was watching football game got up to walk to the bathroom. He tripped and is unsure what happened following that. He is unsure whether he lost consciousness. He reports that since the fall he has chest pain that is 4 out of 10 in severity. He complains of facial pain that is 3 out of 10 in severity. On review of systems patient reports that he has surgery on his right thumb approximately 3 weeks ago. He has not changed the dressing in a few days as it is stuck in there. Physical Examination: Vitals: Stable. Afebrile. Head: 2 cm laceration just below the lateral portion of his left eyebrow. This is not gaping. He has 1.5 cm L-shaped laceration to the mentum. Neck: No vertebral tenderness. Full ROM without difficulty. Cleared by NEXUS criteria. Back: No vertebral tenderness. General: A&O x 3. NAD. Cardiovascular exam: Regular rate and rhythm, no murmur, rub or gallop. Respiratory exam: Mild tenderness palpation over his sternum. No crepitus. Clear to auscultation bilaterally. No wheezes or stridor. Abdominal exam: Soft, nontender, nondistended, normal bowel sounds. No pain in RUQ or LUQ specifically. No peritoneal signs. Extremity: Atraumatic. No pain with range of motion. Test Results: Right thumb x-ray is normal. Chest x-ray is normal. CT brain and C-spine show no acute disease. EKG is sinus at [address] changes. Blood alcohol level is 41. Emergency Department Course and Treatment: Patient was given a dose of morphine and Zofran IV. He is resting comfortably. He refused a repair of either of his lacerations. Had a prolonged discussion with him about this. He does not want to be stuck again. I discussed that this is going away for scar. He states that he does not care. Clinically he is not intoxicated. Lab farris he is not intoxicated. He is capable of making this decision at this point. Treatment Plan: Patient will be discharged instructions follow-up [facility] [place] [facility] in 1 week if not improving. Return to the emergency department for any worsening symptoms. Disposition: To home in improved and stable condition. Impression: 1. Fall. 2. Laceration left eyebrow, 2 cm, refused repair. 3. Laceration of chin, 1.5 cm, refused repair. This note was generated with [employer] dictation software. It may contain incorrect words, spelling, and punctuation that were not noted in review of the chart prior to signing ED Disposition - Plan for ED Patient: Disposition: Home or Assisted Living Instructions: FALL, Uncertain Cause, LACERATION, Small/superficial, Not sutured Referrals: Kaitlin Villatoro [NON-STAFF] - 1 Week if not improving
[2019-06-16 21:32] VITALS: BP 112/76; PULSE 77; RESP 17; O2SAT 97
== END 2019-06-16 21:35 | disposition home or self-care (01) ==
LOC: ED 19:41
PROVIDERS: Emergency Provider Emergency Medicine
DX: S01.112A Laceration without foreign body of left eyelid and periocular area, initial encounter (principal); S01.81XA Laceration without foreign body of other part of head, initial encounter; Z53.29 Procedure and treatment not carried out because of patient's decision for other reasons; R07.89 Other chest pain; R40.2410 Glasgow coma scale score 13-15, unspecified time; W01.0XXA Fall on same level from slipping, tripping and stumbling without subsequent striking against object, initial encounter; Y93.9 Activity, unspecified; Y92.9 Unspecified place or not applicable; F10.99 Alcohol use, unspecified with unspecified alcohol-induced disorder; F17.200 Nicotine dependence, unspecified, uncomplicated
CPT/HCPCS: 70450; 71045; 72125; 73140; 80320; 93005; 96374; 96375; 99284; A4216; G0480; J2405

== ENCOUNTER 2019-12-06 07:41 | Emergency (ER) | payer MEDICAID, SELFPAY ==
[2019-07-08 15:14] VITALS: BMI 19.5
[2019-12-06 07:42] VITALS: BP 92/63; PULSE 62; RESP 18; TEMP 35.9; O2SAT 96; BMI 19.5
--- NOTE | 2019-12-06 07:51 | RAD_ITS ---
STUDY: X-RAY - RIGHT FOOT CLINICAL: Bilateral foot pain. TECHNIQUE: 3 view(s) of the foot. COMPARISON: None. FINDINGS: Normal talus, calcaneus, and tarsal bones. Normal visualized subtalar, talonavicular, calcaneocuboid, tarsal and tarsometatarsal articulations. Normal metatarsi. Normal metatarsophalangeal joint of the great toe. There is mild hallux valgus deformity. Normal tibial and fibular sesamoid bones. Normal interphalangeal joint of the great toe. Normal phalanges of the great toe. Normal second through fifth metatarsophalangeal joints. Normal interphalangeal joints and phalanges of the lesser toes. The soft tissue structures are unremarkable. RAD/Foot min 3 Views IMPRESSION: Mild hallux valgus deformity. Otherwise, unremarkable x-ray examination of the right foot. Electronically Signed: Graham Cid MD at 8:28 EDT Tel , Service support ,
--- NOTE | 2019-12-06 07:51 | RAD_ITS ---
STUDY: X-RAY - LEFT FOOT CLINICAL: Bilateral foot pain. TECHNIQUE: 3 view(s) of the foot. COMPARISON: None. FINDINGS: Normal talus, calcaneus, and tarsal bones. Normal visualized subtalar, talonavicular, calcaneocuboid, tarsal and tarsometatarsal articulations. Normal metatarsi. There is a small marginal osteophyte of the lateral aspect of the first metatarsal head without joint space narrowing of the metatarsophalangeal joint of the great toe. There is hallux valgus deformity. Normal tibial and fibular sesamoid bones. Normal interphalangeal joint of the great toe. Normal phalanges of the great toe. Normal second through fifth metatarsophalangeal joints. Normal interphalangeal joints and phalanges of the lesser toes. The soft tissue structures are unremarkable. RAD/Foot min 3 Views IMPRESSION: Hallux valgus deformity. Small marginal osteophyte of the first metatarsal head. Otherwise, unremarkable x-ray examination of the left foot. Electronically Signed: Graham Cid MD at 8:29 EDT Tel , Service support ,
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
[2019-12-06] MEDS: Naproxen 500 MG Tablet PO (07:56)
== END 2019-12-06 08:54 | disposition home or self-care (01) ==
PROVIDERS: Emergency Provider Emergency Medicine
DX: M19.072 Primary osteoarthritis, left ankle and foot (principal); M19.071 Primary osteoarthritis, right ankle and foot; M20.11 Hallux valgus (acquired), right foot; M20.12 Hallux valgus (acquired), left foot; M25.775 Osteophyte, left foot; F17.200 Nicotine dependence, unspecified, uncomplicated; Z59.0 Homelessness
CPT/HCPCS: 73630; 99283

== ENCOUNTER 2020-05-26 12:40 | Emergency (ER) | payer MEDICAID, SELFPAY ==
[2020-05-26 12:41] VITALS: BP 113/76; PULSE 123; RESP 16; TEMP 37.3; O2SAT 97; BMI 19.6
[2020-05-26 14:21] VITALS: BP 113/76; PULSE 99; RESP 16; TEMP 37.3; O2SAT 98; O2SAT 99
--- NOTE | 2020-05-26 15:55 | RAD_ITS ---
STUDY: X-RAY CHEST REASON FOR EXAM: Male, 54 years old. COUGH, CONGESTION, COLEMAN, CHILLS, AND LOSE OF TASTE AND SMELL. TECHNIQUE: Frontal view COMPARISON: 06/16/2019 FINDINGS: The lungs are clear and expanded. There is no demonstrated pleural abnormality. Normal size heart. Normal mediastinum and remy. Normal visualized pulmonary arteries. Normal visualized aortic arch and descending thoracic aorta. Normal visualized thoracic spine. Normal visualized ribs, clavicles, and shoulders. There is no demonstrated abnormality of the visualized soft tissue structures of the upper abdomen. RAD/Chest 1 View (Portable) IMPRESSION: Normal x-ray examination of the chest. Electronically Signed: Luís Sanchez DO at 16:35 EDT Tel [phone], Service support ,
[2020-05-26 15:58] LABS: Anion Gap 4 (5-15); BUN 12 mg/dL (7-18); BUN/Creat Ratio 11.4 RATIO (10-20); Calcium,Total 10.1 mg/dL (8.5-10.1); Chloride 103 mmol/L (98-107); Creatinine, Serum 1.05 mg/dL (0.70-1.30); EST Glomerular Filtration Rate 78 mL/min (>60); Est Glom Filt Rate - Afr Amer 94 mL/min (>60); Estimated Creatinine Clearance 63.97 ml/min; Glucose 82 mg/dL (74-106); Potassium 4.2 mmol/L (3.5-5.1); Sodium Level 137 mmol/L (136-145)
[2020-05-26 16:11] LABS: Hematocrit 46.7 % (40-54); Hemoglobin 15.6 g/dL (13.0-16.5); Mean Corp Hgb Conc 33.4 g/dL (32-36); Mean Corpuscular Hgb 32.5 pg (27.0-32.0); Mean Corpuscular Volume 97.3 fL (80-94); Mean Platelet Vol. 10.8 fl (6.2-12.0); Platelet Count 495 K/mm3 (150-450); RBC Distribution Width CV 13.2 % (11.6-14.6); RBC Distribution Width SD 47.4 fl (35.1-43.9); White Blood Count 7.9 K/mm3 (4.4-11.0)
[2020-05-26 16:12] LABS: Absolute Neutrophil Count 5.5 X10^3/uL (2.0-7.7); Basophil# 0.03 X10^3/uL; Basophil% 0.4 % (0-1); Differential Indicated SCAN CRITERIA MET; Eosinophil# 0.03 X10^3/uL; Eosinophils% 0.4 % (0-5); Lymphocyte # 1.92 X10^3/ul (4.0); Lymphocyte % 24.3 % (19-41); Monocyte# 0.45 X10^3/uL; Monocyte% 5.7 % (0-10); Neutrophil # 5.45 X10^3/uL (2.7-7.7); Neutrophil % 68.9 % (47-70)
[2020-05-26 16:53] LABS: Differential Comment SCANNED
--- NOTE | 2020-05-26 16:54 | ED.DCSUM_ITS ---
- ER Visit Summary Date of Service: 05/26/20 Chief Complaint: Headache and chills History of Present Illness: The patient is a 54 M who presents with headache and chills that has been getting worse over the past 4 days. Patient states his headache is over the left temporal area. Patient describes it as aching. Patient admits to subjective fevers and chills at home. Patient also admits to some fatigue. Patient admits to nasal congestion and rhinorrhea. Patient also states he has lost his sense of taste and smell. Patient denies any chest pain. Patient denies any shortness of breath. Patient does admit to a cough. Physical Examination: Vital signs are stable. Patient is afebrile here. Patient is in no acute distress. Oral mucosa is pink and moist. Neck is supple. Trachea is midline. There is no JVD. Heart was regular rate and rhythm. Lungs are clear and equal bilaterally. Abdomen is soft. Bowel sounds are normal. There is no tenderness. Cranial nerves II through XII are intact. There are no focal motor or sensory deficits noted. Test Results: Portable chest x-ray was obtained. There is no acute cardiopulmonary process noted. There is no infiltrate noted. This was interpreted by the radiologist and reviewed by myself. Emergency Department Course and Treatment: Due to his loss of taste and smell, a COVID's test was ordered. Patient refused this. Patient was advised that his f indings are most likely viral upper respiratory infection. Patient was instructed to follow-up with a primary care physician in 5 to 7 days. Patient understood and was agreeable with the plan. All questions were answered. Disposition: Discharge home Impression: Viral upper respiratory infection This note was generated with [employer] dictation software. It may contain incorrect words, spelling, and punctuation that were not noted in review of the chart prior to signing ED Disposition - Plan for ED Patient: Disposition: Home or Assisted Living Diagnosis: Viral upper respiratory infection Instructions: ED URI Viral Referrals: Kaitlin Villatoro [NON-STAFF] -
--- NOTE | 2020-05-26 17:05 | CPS ---
pt refused nasal swab.
[2020-05-26 17:27] VITALS: BP 128/82; PULSE 92; RESP 14; O2SAT 99
== END 2020-05-26 17:28 | disposition home or self-care (01) ==
PROVIDERS: Emergency Provider Emergency Medicine
DX: J06.9 Acute upper respiratory infection, unspecified (principal); F17.200 Nicotine dependence, unspecified, uncomplicated
CPT/HCPCS: 71045; 80048; 85025; 99285; A4216

== ENCOUNTER 2021-10-22 18:57 | Emergency (ER) | payer MEDICAID, SELFPAY ==
[2021-10-22 18:57] VITALS: BP 110/91; PULSE 75; RESP 18; TEMP 36.6; O2SAT 95; BMI 20.7
--- NOTE | 2021-10-22 19:05 | ED.VIS.LOWEX ---
HPI History of Present Illness Chief Complaint: Lower Extremity Injury Detail of Chief Complaint: Bilateral feet pain per patient Informant: patient Occured/Mechanism Mechanism/Context: Yes other see comment below Comment: Patient has deformity to toes and complains of pain and bunion Onset/Context/Timing Onset: Days Context: Sudden Onset Timing: Continuous Quality of Pain: - (Pain) Location: Previously described Current Severity: Mild Maximum Severity: Severe Worsened by: Movement of toes for examination Relieved by: Nothing Associated Symptoms Associated Symptoms: Negative for Parasthesia, Weakness and Loss of Funtion Narrative Narrative: Patient is a 56-year-old male with history of alcoholic liver disease, malnutrition, anemia who presents with pain between his 1st and 2nd toe and 2nd and 3rd toe bilaterally. He denies history of diabetes. He denies polyuria, polydipsia or polyphagia. He denies symptoms of claudication. There is no history of trauma. Tetanus Immunization: 5-10 years Prior similar symptoms: No PFSH PFSH Home Medications NK 05/26/20 [History Last Taken Unknown] Allergy/AdvReac Type Severity Reaction Status Date / Time No Known Allergies Allergy Verified 05/26/20 12:41 Social History (Updated 10/22/21 @ 19:[address] Stuart Nassar MD) household members: none Smoking Status: Current every day smoker tobacco type: cigarettes alcohol intake: current alcohol intake frequency: a few times a month ROS ROS ED Constitutional Constitutional ED: Denies chills, fever(s), subjective, sweats or weight loss Eyes Eyes: Denies blurry vision, change in vision or diplopia Cardiovascular Cardiovascular: Denies chest pain or palpitations Respiratory/Chest Respiratory/Chest: Denies cough or dyspnea Gastrointestinal Gastrointestinal: Denies nausea or vomiting Musculoskeletal Musculoskeletal: Reports other Details: Per HPI ; Denies arthralgias, back pain, myalgias or neck pain Integumentary Denies rash Neurologic Neurologic: Denies paresthesias or weakness Endocrine Endocrinology: Denies polydipsia, polyphagia or polyuria EXAM Physical Exam Const Vital Signs: 10/22/21 18:57 Temperature 97.9 F Temperature Source Temporal Pulse Rate 75 Respiratory Rate 18 Blood Pressure 110/91 H Blood Pressure Mean 97 Pulse Ox 95 Oxygen Delivery Method Room Air Positive well nourished and well developed General Appearance ED: well developed and NAD HEENT Reports moist mucous membranes normocephalic and atraumatic Eyes PERRL Eyes Narrative: Extract muscle intact. Sclerae anicteric. Conjunctive is pink. Neck full ROM and supple Thyroid: Negative for tender Resp normal respiratory effort Cardio regular rate and regular rhythm Extremity Negative for normal to inspection Extremity Narrative: Patient has abnormality of his great, 2nd and 3rd toe bilaterally. There is evidence of tinea pedis left foot none noted on the right foot. Patient does have a callus deformity of the great toe on the left side. DP and PT pulse are palpable. There is no pain the patient over the metatarsal bones bilaterally. There is no pain the patient over the tarsal bones bilaterally. There is no erythema, warmth or induration. There is no rash or lesions noted on his feet other than the tinea pedis infection. Neuro oriented x3, CN's II-XII intact bilaterally and no sensory deficits noted Sensorium / Orientation: alert Motor Exam: strength 5/5 throughout Psych mental status grossly normal Skin no wounds Skin Narrative: Tinea pedis between the left great toe and 2nd toe and 2nd toe and 3rd toe. Rashes: No no rashes MDM MDM MDM Narrative Medical decision making narrative: Patient's PTT is 105. Patient was treated with nystatin powder for his tinea pedis. He was discharged to home. He was referred to Dr. Ridley for his calluses and bunion. Discharge Plan Triage Chief Complaint: Lower Extremity Injury ED Provider: Stuart Nassar Dx/Rx/DC Orders Clinical Impression: Tinea pedis, Bunion, left foot, Callus of foot Instructions: Treating Corns and Calluses, ED Bunion, ED Athlete's Foot Prescriptions: No Action NK RF: 0 Primary Care Provider: Care Physician,No Primary Referrals: Abigail Ridley DPM [STAFF PHYSICIAN] - 1 Week Care Physician,No Primary [Primary Care Provider] - Activity Restrictions/Additional Instructions: Apply nystatin powder to webspace of your left great toe and 2nd toe and webspace of your 2nd and 3rd toe. Apply fungal powder 3 times a day Disposition Disposition: Home, Self Care
[2021-10-22 19:21] LABS: Bedside Glucose 105 mg/dL (70-110)
--- NOTE | 2021-10-22 19:39 | ED.RN ---
PT BECAME AGITATED WHEN THIS RN ATTEMPTED TO GIVE DISCHARGE PAPERS. PT ALSO REFUSES APPLICATION OF [place]STAT[place] ON FOOT. PT CURSING, THREATENING TO BREAK SHIT, DEMANDS TO HAVE POLICE CALLED FOR RIDE HOME. [facility] NOTIFIED, ESCORTED PT OUT OF DEPT.
== END 2021-10-22 19:41 | disposition home or self-care (01) ==
PROVIDERS: Emergency Provider Emergency Medicine; Visit Provider Emergency Medicine
DX: B35.3 Tinea pedis (principal); E46 Unspecified protein-calorie malnutrition; K70.9 Alcoholic liver disease, unspecified; M21.612 Bunion of left foot; M25.775 Osteophyte, left foot; F17.210 Nicotine dependence, cigarettes, uncomplicated; D64.9 Anemia, unspecified; Z68.20 Body mass index [BMI] 20.0-20.9, adult
CPT/HCPCS: 82962; 99284

== ENCOUNTER 2021-10-24 15:53 | Emergency (ER) | payer MEDICAID, SELFPAY ==
[2021-10-24 15:54] VITALS: PULSE 61; RESP 18; TEMP 36.4; O2SAT 94; BMI 19.5
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
[2021-10-24] MEDS: Morphine 4 MG/ML Syringe IV ×3 (16:11→18:05)
[2021-10-24] MEDS: Ondansetron 4 MG/2 ML Vial IV (16:11)
[2021-10-24] MEDS: Diphth,Pertuss(Acell),Tet Vac 0.5 ML Vial IM (16:12)
[2021-10-24] MEDS: Lidocaine 1% (20 ml mdv) 20 ML Vial INFILT (16:12)
[2021-10-24 16:32] LABS: Absolute Lymphocyte Count 1.56 X10^3/uL (0.83-4.51); Absolute Neutrophil Count 5.9 X10^3/uL (2.0-7.7); Basophil# 0.03 X10^3/uL; Basophil% 0.4 % (0-1); Hematocrit 39.5 % (40-54); Hemoglobin 14.1 g/dL (13.0-16.5); Lymphocyte # 1.56 X10^3/ul (0.83-4.51); Lymphocyte % 19.6 % (19-41); Mean Corp Hgb Conc 35.7 g/dL (32-36); Mean Corpuscular Hgb 32.6 pg (27.0-32.0); Mean Corpuscular Volume 91.4 fL (80-94); Mean Platelet Vol. 10.8 fl (6.2-12.0); Monocyte# 0.46 X10^3/uL; Monocyte% 5.8 % (0-10); NRBC Flagged by Analyzer 0 % (0-5); Neutrophil # 5.88 X10^3/uL (2.7-7.7); Neutrophil % 73.8 % (47-70); Platelet Count 475 K/mm3 (150-450); RBC Distribution Width CV 13.5 % (11.6-14.6); RBC Distribution Width SD 45.8 fl (35.1-43.9); Red Blood Count 4.32 M/mm3 (4.6-6.2)
[2021-10-24 16:44] VITALS: BP 121/82; PULSE 92; RESP 18; O2SAT 97
[2021-10-24 16:44] LABS: Alcohol, Blood (Medical)-Serum < 3.0 mg/dL
[2021-10-24 16:46] LABS: ALB/GLOB Ratio 0.8 RATIO (0.9-2.4); AST(SGOT) 16 U/L (15-37); Alanine Aminotransfer ALT/SGPT 23 U/L (16-61); Albumin, Serum 3.5 g/dL (3.2-5.0); Alkaline Phosphatase 78 U/L (45-117); Anion Gap 7 (5-15); BUN 20 mg/dL (7-18); Calcium,Total 9.7 mg/dL (8.5-10.1); Chloride 101 mmol/L (98-107); Creatinine, Serum 1.81 mg/dL (0.70-1.30); EST Glomerular Filtration Rate 41 mL/min (>60); Est Glom Filt Rate - Afr Amer 50 mL/min (>60); Estimated Creatinine Clearance 36.05 ml/min; Globulin 4.6 g/dL (2.2-4.2); Glucose 162 mg/dL (74-106); Potassium 4.1 mmol/L (3.5-5.1); Protein, Total 8.1 g/dL (6.4-8.2); Sodium Level 133 mmol/L (136-145)
[2021-10-24 18:12] VITALS: BP 106/73; PULSE 90; RESP 18; O2SAT 98
== END 2021-10-24 18:19 | disposition other institution (70) ==
PROVIDERS: Emergency Provider Emergency Medicine; Visit Provider Emergency Medicine
DX: S12.500A Unspecified displaced fracture of sixth cervical vertebra, initial encounter for closed fracture (principal); S02.42XA Fracture of alveolus of maxilla, initial encounter for closed fracture; S01.511A Laceration without foreign body of lip, initial encounter; W19.XXXA Unspecified fall, initial encounter; Y93.9 Activity, unspecified; Y92.511 Restaurant or cafe as the place of occurrence of the external cause; F17.210 Nicotine dependence, cigarettes, uncomplicated; F10.10 Alcohol abuse, uncomplicated; Y90.9 Presence of alcohol in blood, level not specified
CPT/HCPCS: 12013; 70450; 71250; 72125; 80053; 82077; 85025; 90715; 96374; 96375; 96376; 99285; J2405

== ENCOUNTER 2022-12-11 13:22 | Emergency (ER) | payer MEDICAID, SELFPAY ==
[2022-12-11 13:23] VITALS: BP 115/76; PULSE 78; RESP 16; TEMP 36.6; O2SAT 98; BMI 19.3
[2022-12-11] MEDS: Lidocaine/Epi/Tetracaine 50 ML 1 APPLIC TOPICAL (14:10)
[2022-12-11] MEDS: Lidocaine 1% /Epi 1:100 (20ml) 20 ML Vial INFILT (14:11)
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
[2022-12-11 15:48] VITALS: BP 134/78; PULSE 76; RESP 16; O2SAT 98
[2022-12-11 16:03] VITALS: BP 134/78; PULSE 78; RESP 16; TEMP 36.6; O2SAT 100
== END 2022-12-11 16:04 | disposition home or self-care (01) ==
PROVIDERS: Emergency Provider Emergency Medicine; Visit Provider Emergency Medicine
DX: S01.412A Laceration without foreign body of left cheek and temporomandibular area, initial encounter (principal); F17.210 Nicotine dependence, cigarettes, uncomplicated; V19.88XA Pedal cyclist (driver) (passenger) injured in other specified transport accidents, initial encounter; Y93.55 Activity, bike riding; S01.112A Laceration without foreign body of left eyelid and periocular area, initial encounter; S09.8XXA Other specified injuries of head, initial encounter
CPT/HCPCS: 12013; 99283

== ENCOUNTER 2023-01-06 16:32 | Emergency (ER) | payer MEDICAID, SELFPAY ==
[2023-01-06 16:33] VITALS: BP 131/85; PULSE 98; RESP 16; TEMP 36.6; O2SAT 98; BMI 19.9
--- NOTE | 2023-01-06 16:53 | EX.ED.DYSGE1 ---
HPI History of Present Illness Chief Complaint: Suture Remv PFSH PFSH Home Medications NK 05/26/20 [History Last Taken Unknown] Allergy/AdvReac Type Severity Reaction Status Date / Time No Known Allergies Allergy Verified 01/06/23 16:35 Social History household members: none Smoking Status: Current every day smoker tobacco type: cigarettes alcohol intake: current alcohol intake frequency: a few times a month EXAM Physical Exam Const Vital Signs: 01/06/23 16:33 Temperature 98 F Temperature Source Oral Pulse Rate 98 Respiratory Rate 16 Blood Pressure 131/85 H Blood Pressure Mean 100 Pulse Ox 98 Oxygen Delivery Method Room Air MDM MDM MDM Narrative Medical decision making narrative: HISTORY OF PRESENT ILLNESS: 57-year-old male here for suture removal. The patient states he had sutures placed several weeks ago and is here to get them removed. He denies any signs of infection REVIEW OF SYSTEMS: Pertinent positives: None Pertinent negatives: No redness, swelling, white-yellow discharge, pain PHYSICAL EXAM: Nursing triage notes reviewed, Vital signs reviewed Constitutional: please see mdm HENT: MMM Eyes: Pupils equal round and reactive to light, Extraocular muscles intact Neck: No stridor, no JVD, full neck ROM Skin: No rash or lesions noted MEDICAL DECISION MAKING: Chief Complaint: Suture removal External records reviewed: Patient had sutures placed on 12/11/2022. He had 2 simple interrupted 5-0 nylon sutures placed over the left eyebrow. He had 5 simple interrupted 5-0 nylon sutures placed over the left zygomatic arch MDM Narrative: Patient was hemodynamically stable. Sutures were removed. No signs of skin infection. Patient was given infection precautions and PCP follow-up instructions Factors affecting care: None Social determinants of health: Poor health literacy, alcohol abuse History obtained from others: none Shared decision making: I will have a discussion with the patient and or visitors regarding risk/benefits of further testing or admission. They will be made aware of of the risk/benefits inherent in this decision they will be given the opportunity to voice understanding. Consults: None Discharge Plan Triage Chief Complaint: Suture Remv ED Provider: Thomas Reyes Dx/Rx/DC Orders Clinical Impression: Visit for suture removal Prescriptions: No Action NK Primary Care Provider: Care Physician,No Primary Referrals: Care Physician,No Primary [Primary Care Provider] - Activity Restrictions/Additional Instructions: Thank you for trusting us with your care today! Please take Tylenol (2 pills, 650 mg), ibuprofen (2 pills, 400 mg) every 6 hours as needed for pain and fever control. Please return to the emergency department if your symptoms change or worsen. Specifically if you develop redness, swelling, white or yellow discharge at the site of your sutures Please follow with your primary care physician for further outpatient evaluation and management. Disposition Disposition: Home, Self Care
== END 2023-01-06 18:29 | disposition home or self-care (01) ==
PROVIDERS: Emergency Provider Emergency Medicine; Visit Provider Emergency Medicine
DX: Z48.02 Encounter for removal of sutures (principal); F17.210 Nicotine dependence, cigarettes, uncomplicated
CPT/HCPCS: 99284

== ENCOUNTER 2023-03-22 19:44 | Emergency (ER) | payer MEDICAID, SELFPAY ==
[2023-03-22 19:47] VITALS: BP 96/70; PULSE 103; RESP 22; TEMP 36.8; O2SAT 100
[2023-03-22 20:11] VITALS: BP 108/75; PULSE 90; RESP 16; O2SAT 94
--- NOTE | 2023-03-22 20:21 | CT_ITS ---
STUDY: CT BRAIN WITHOUT CONTRAST REASON FOR EXAM: Male, 57 years old. New onset seizure RADIATION DOSAGE (If Supplied By Facility): CTDIvol = ( 44.99 ) mGy, DLP = ( 863.60 ) mGycm TECHNIQUE: Transaxial CT imaging of the brain was performed without administration of intravenous contrast material. Individualized dose optimization techniques were used for this CT. COMPARISON: 10/24/2021 FINDINGS: Normal soft tissue structures. Normal calvarium. Normal size ventricles and extra-axial spaces for the patient''s age. Normal white matter tracts of the cerebral hemispheres. Normal basal ganglia and thalami. Normal brainstem. Normal cerebellum. There is no intracranial hemorrhage. There are no findings of an acute ischemic infarction. There is opacification of the left maxillary sinus, otherwise negative visualized paranasal sinuses. CT/Brain/Head without Contrast IMPRESSION: Normal unenhanced CT scan of the brain. Electronically Signed: Raymond Rangel MD at 21:42 EDT ,
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
[2023-03-22 20:24] LABS: Bedside Glucose 111 mg/dL (74-106)
[2023-03-22 20:45] LABS: Absolute Neutrophil Count 4.6 X10^3/uL (2.0-7.7); Basophil# 0.04 X10^3/uL; Basophil% 0.6 % (0-1); Hematocrit 38.3 % (40-54); Hemoglobin 12.8 g/dL (13.0-16.5); Lymphocyte % 25.5 % (19-41); Mean Corp Hgb Conc 33.4 g/dL (32-36); Mean Corpuscular Hgb 30.2 pg (27.0-32.0); Mean Corpuscular Volume 90.3 fL (80-94); Mean Platelet Vol. 11.3 fl (6.2-12.0); Monocyte% 8.5 % (0-10); NRBC Flagged by Analyzer 0 % (0-5); Neutrophil % 65.1 % (47-70); Platelet Count 376 K/mm3 (150-450); RBC Distribution Width CV 14.2 % (11.6-14.6); RBC Distribution Width SD 46.8 fl (35.1-43.9); Red Blood Count 4.24 M/mm3 (4.6-6.2); White Blood Count 7.1 K/mm3 (4.4-11.0)
[2023-03-22 21:00] LABS: AST(SGOT) 35 U/L (15-37); Alanine Aminotransfer ALT/SGPT 18 U/L (16-61); Alkaline Phosphatase 84 U/L (45-117); Anion Gap 8 (5-15); BUN 12 mg/dL (7-18); BUN/Creat Ratio 10.2 RATIO (10-20); Calcium,Total 9.4 mg/dL (8.5-10.1); Chloride 105 mmol/L (98-107); Creatinine, Serum 1.18 mg/dL (0.70-1.30); EST Glomerular Filtration Rate 67 mL/min (>60); Est Glom Filt Rate - Afr Amer 81 mL/min (>60); Globulin 4.1 g/dL (2.2-4.2); Glucose 109 mg/dL (74-106); Protein, Total 8.1 g/dL (6.4-8.2); Sodium Level 137 mmol/L (136-145)
[2023-03-22 21:07] LABS: Alcohol, Blood (Medical)-Serum < 3.0 mg/dL
[2023-03-22 21:25] VITALS: BP 121/84; PULSE 74; RESP 16; O2SAT 95
[2023-03-22 21:48] LABS: Mucous, Urine 0 SEEN /hpf (<or=2+); Red Blood Cells-Urine 0 SEEN /hpf (0-5); Squamous Epithelial Cells - UA 0 SEEN /hpf (0-5)
[2023-03-22 22:02] LABS: Color, Urine Yellow (Yellow); Glucose, Dipstick Normal (Normal); Ketone-Dipstick 15 mg/dl (Negative); Leukocyte Esterase-Dipstick 500 /ul (Negative); Nitrite-Dipstick Negative (Negative); Occult Blood-Urine 10 /ul (Negative); Protein-Dipstick 30 mg/dl (Negative); Specific Gravity, Urine 1.015 (1.002-1.030); Urine Bilirubin Dipstick Negative (Negative); Urine Clarity Sl. Cloudy (Clear); Urine Urobilinogen Normal (Normal); Urine pH 6.5 (5.0 - 8.0)
[2023-03-22 22:16] LABS: Bacteria RARE /hpf (None Seen); White Blood Cells 5-10 SEEN /hpf (0-5)
[2023-03-22 22:17] LABS: Transitional Epithelial - Ur 0-5 SEEN /hpf (0-5)
[2023-03-22 22:19] LABS: Amphetamine Urine VISTA NEGATIVE (<1000 ng/mL); Barbiturate Urine VISTA NEGATIVE (< 200 ng/mL); Benzodiazepine Urine VISTA NEGATIVE (< 200 ng/mL); Cocaine Urine VISTA NEGATIVE (< 300 ng/mL); Ecstacy Urine VISTA NEGATIVE (< 500 ng/mL); Methadone Urine VISTA NEGATIVE (< 300 ng/mL); PCP Urine VISTA NEGATIVE (< 25 ng/mL); THC Urine VISTA POSITIVE (< 50 ng/mL); Vista UDS pH Range 6
[2023-03-23 00:22] VITALS: BP 118/62; PULSE 72; RESP 18; O2SAT 95
== END 2023-03-23 00:26 | disposition home or self-care (01) ==
PROVIDERS: Emergency Provider Emergency Medicine; Visit Provider Emergency Medicine
DX: G40.409 Other generalized epilepsy and epileptic syndromes, not intractable, without status epilepticus (principal); F12.99 Cannabis use, unspecified with unspecified cannabis-induced disorder; F10.10 Alcohol abuse, uncomplicated; F17.210 Nicotine dependence, cigarettes, uncomplicated; Z59.00 Homelessness unspecified
CPT/HCPCS: 70450; 80053; 80307; 81001; 82077; 82962; 85025; 96365; 99284; J7030; A4216

== ENCOUNTER → 2023-03-24 | Outpatient (CLI) | payer MEDICAID, SELFPAY ==
[2023-03-24 18:11] LABS: Absolute Lymphocyte Count 2.84 X10^3/uL (0.83-4.51); Absolute Neutrophil Count 2.9 X10^3/uL (2.0-7.7); Basophil# 0.03 X10^3/uL; Basophil% 0.5 % (0-1); Eosinophil# 0.05 X10^3/uL; Eosinophils% 0.8 % (0-5); Hematocrit 38.7 % (40-54); Hemoglobin 12.3 g/dL (13.0-16.5); Lymphocyte # 2.84 X10^3/ul (0.83-4.51); Lymphocyte % 45.8 % (19-41); Mean Corp Hgb Conc 31.8 g/dL (32-36); Mean Corpuscular Hgb 30.6 pg (27.0-32.0); Mean Corpuscular Volume 96.3 fL (80-94); Mean Platelet Vol. 11.5 fl (6.2-12.0); Monocyte# 0.42 X10^3/uL; Monocyte% 6.8 % (0-10); NRBC Flagged by Analyzer 0 % (0-5); Neutrophil # 2.85 X10^3/uL (2.7-7.7); Neutrophil % 45.9 % (47-70); Platelet Count 337 K/mm3 (150-450); RBC Distribution Width CV 14.7 % (11.6-14.6); RBC Distribution Width SD 52.5 fl (35.1-43.9); Red Blood Count 4.02 M/mm3 (4.6-6.2); White Blood Count 6.2 K/mm3 (4.4-11.0)
[2023-03-24 18:57] LABS: ALB/GLOB Ratio 0.9 RATIO (0.9-2.4); AST(SGOT) 23 U/L (15-37); Alanine Aminotransfer ALT/SGPT 18 U/L (16-61); Albumin, Serum 3.6 g/dL (3.2-5.0); Alkaline Phosphatase 81 U/L (45-117); Anion Gap 9 (5-15); BUN 15 mg/dL (7-18); BUN/Creat Ratio 16.1 RATIO (10-20); Calcium,Total 8.5 mg/dL (8.5-10.1); Chloride 108 mmol/L (98-107); Creatinine, Serum 0.93 mg/dL (0.70-1.30); EST Glomerular Filtration Rate 88 mL/min (>60); Est Glom Filt Rate - Afr Amer 107 mL/min (>60); Globulin 3.8 g/dL (2.2-4.2); Glucose 81 mg/dL (74-106); Magnesium 2.3 mg/dL (1.6-2.6); PSA,Total - Annual Screen 3.41 ng/mL (0.00-4.00); Potassium 4.4 mmol/L (3.5-5.1); Protein, Total 7.4 g/dL (6.4-8.2); Sodium Level 143 mmol/L (136-145)
[2023-03-24 19:28] LABS: Hepatitis C Antibody Non-Reactive (Nonreactive)
== END | disposition home or self-care (01) ==
LOC: MFPLAB 16:04
PROVIDERS: PCP Family Medicine; Visit Provider Family Medicine
DX: E87.6 Hypokalemia (principal); R56.9 Unspecified convulsions; Z11.59 Encounter for screening for other viral diseases; Z12.5 Encounter for screening for malignant neoplasm of prostate
CPT/HCPCS: 84153; 36415; 80053; 82140; 83735; 85025; 86803; G0103

== ENCOUNTER 2023-09-16 12:57 | Emergency (ER) | payer MEDICAID, SELFPAY ==
[2023-09-16 13:00] VITALS: BP 121/79; PULSE 84; RESP 18; TEMP 36.3; O2SAT 100; BMI 45.3
[2023-09-16 13:11] VITALS: BP 110/82; PULSE 88; RESP 17; O2SAT 97
--- NOTE | 2023-09-16 13:12 | RAD_ITS ---
EXAM: XR CHEST, 2 VIEWS CLINICAL INDICATION: sob TECHNIQUE: Frontal and lateral views of the chest. COMPARISON: XR Chest dated 05/26/2020 FINDINGS: LUNGS AND PLEURAL SPACES: Normal. No consolidation or edema. No pneumothorax. No effusion. HEART: Normal heart size. MEDIASTINUM: No mediastinal or hilar mass. BONES/JOINTS: No acute abnormality. RAD/Chest PA and Lateral IMPRESSION: No acute cardiopulmonary abnormality. No interval change. Electronically Signed: Luis Tapia MD at 13:56 EST ,
--- NOTE | 2023-09-16 13:13 | ED.VIS.DYS ---
HPI History of Present Illness Chief Complaint: Shortness of Breath Informant: patient Narrative Narrative: Homeless gentleman apparently was shoveling snow and felt short of breath presents to the emergency department. He states he did not feel syncopal or near syncopal because I stopped before I exerted myself that much. He indicates this is a chronic problem that was worse today and he suspects it is because he has had nothing to eat for the last 2 days, he shows us an old [employer] sausage sandwich that he pulled out of a bag that his belongings are in that he has apparently not eaten. He denies any GI symptoms or nausea. He denies any chest discomfort. No recent illness or cough/fever. He states that he wants me to give him his electronic tablet so that he can watch basketball, which usually helps him relax and helps his breathing when this happens. PFSH PFSH Medical History no medical history Home Medications divalproex 500 mg tablet,delayed release (Depakote) 500 mg PO BID #60 tabs 03/22/23 [Rx Last Taken Unknown] Allergy/AdvReac Type Severity Reaction Status Date / Time No Known Allergies Allergy Verified 09/16/23 12:58 Surgical History no surgical history Social History (Updated 09/16/23 @ 13:[address] Hao Art MD) household members: none housing: homeless Smoking Status: Current every day smoker tobacco type: cigarettes alcohol intake: current alcohol intake frequency: a few times a month ROS [facility] ED Constitutional Constitutional ED: Denies chills or fever(s) Eyes Eyes: Denies change in vision or diplopia ENT ENT ED: Denies rhinorrhea or sore throat Cardiovascular Cardiovascular: Reports lightheadedness; Denies chest pain or palpitations Respiratory/Chest Respiratory/Chest: Reports dyspnea and dyspnea on exertion; Denies cough Gastrointestinal Gastrointestinal: Denies abdominal pain, diarrhea, nausea or vomiting Genitourinary Genitourinary ED: Denies dysuria or hematuria Musculoskeletal Musculoskeletal: Denies back pain or neck pain Integumentary Denies abscess or rash Neurologic Neurologic: Denies headache(s), paresthesias or weakness Psychiatric Psychiatric: Reports anxiety; Denies suicidal ideation or suicidal thoughts EXAM Physical Exam Const Vital Signs: 09/16/23 13:00 09/16/23 13:06 09/16/23 13:11 Temperature 97.4 F L Temperature Source Temporal Pulse Rate 84 88 Respiratory Rate 18 17 Respiratory Effort Short of Breath Respiratory Pattern Tachypnea Blood Pressure 121/79 H 110/82 H Blood Pressure Mean 93 91 Pulse Ox 100 97 Oxygen Delivery Method Room Air Room Air Room Air Positive well nourished and well developed General Appearance ED: well developed and NAD HEENT Reports moist mucous membranes normocephalic and atraumatic Eyes PERRL and EOMs intact bilaterally Neck full ROM and supple Resp normal respiratory effort and clear to auscultation bilaterally Cardio regular rate, regular rhythm and no murmurs Rate: Negative for tachycardic GI non-tender and non-distended Auscultation: normoactive bowel sounds Palpation: soft Back/Spine no CVA tenderness General Back: other FROM Extremity normal to inspection General Extremety ED: Negative for edema, pulses abnormal or tenderness General Extremity: Negative for edema or pulses abnormal Neuro oriented x3, CN's II-XII intact bilaterally and no sensory deficits noted Sensorium / Orientation: awake and alert Motor Exam: strength 5/5 throughout Psych Mood & Affect: anxious Thought Process: normal thought process Skin no rashes or lesions noted and no wounds MDM MDM MDM Narrative Medical decision making narrative: Chest x-ray 2 views normal in my interpretation, radiology in agreement. EKG normal/unchanged. His labs are normal except for mild prerenal azotemia consistent with dehydration. He has a history of alcohol abuse so I did an alcohol level since he seemed quite anxious, it is negative. His glucose was 67 but he is not symptomatic with hypoglycemia. He was given some food and beverage to drink. After he is finished, he will be discharged. I do not think he needs workup for PE here. His pulse ox is 100 on room air and he is not tachycardic. Lab Data Attestation: I reviewed the patient's lab results. Labs: Laboratory Results - last 24 hr 09/16/23 13:27 WBC 9.7 RBC 4.16 L Hgb 13.3 Hct 39.0 L MCV 93.8 MCH 32.0 MCHC 34.1 RDW Std Deviation 48.7 H RDW Coeff of Jani 14.2 Plt Count 392 MPV 10.7 Immature Gran % (Auto) 0.200 Neut % (Auto) 75.9 H Lymph % (Auto) 17.9 L [place] % (Auto) 5.5 Eos % (Auto) 0.0 Baso % (Auto) 0.5 Absolute Neuts (auto) 7.4 Absolute Lymphs (auto) 1.74 Nucleated RBC % 0 Sodium 139 Potassium 3.7 Chloride 102 Carbon Dioxide 22.0 Anion Gap 15 BUN 28 H Creatinine 1.26 Estim Creat Clear Calc 81.04 Est GFR (MDRD) Af Amer 75 Est GFR (MDRD) Non-Af 62 BUN/Creatinine Ratio 22.2 H Glucose 67 L Calcium 9.7 Ethyl Alcohol < 3.0 Radiography Diagnostic Testing: Clinical Impression(s) from Imaging Studies Chest X-Ray 09/16/23 13:12 IMPRESSION: No acute cardiopulmonary abnormality. No interval change. Electronically Signed: Luis Tapia MD at 13:56 EST , Rhythm Strip Rhythm Strip: Sinus Rhythm Rate: 85 Ectopy: None EKG Initial EKG: Attestation: I personally reviewed and interpreted this EKG as follows: Interpretation: Sinus Rhythm, No Acute Injury Pattern and LAFB Prior EKG tracings: available for review Prior: Unchanged Discharge Plan Triage Chief Complaint: Shortness of Breath ED Provider: Hao Art Dx/Rx/DC Orders Clinical Impression: Dyspnea on exertion, Mild dehydration Instructions: ED Dehydration (Adult) Prescriptions: No Action divalproex [Depakote] 500 mg tablet,delayed release (DR/EC) 500 mg PO BID Qty: 60 0RF Primary Care Provider: Yosi Peralta Referrals: Yosi Peralta MD [Primary Care Provider] - As Needed Disposition Disposition: Home, Self Care
[2023-09-16 13:41] LABS: Absolute Lymphocyte Count 1.74 X10^3/uL (0.83-4.51); Absolute Neutrophil Count 7.4 X10^3/uL (2.0-7.7); Basophil# 0.05 X10^3/uL; Basophil% 0.5 % (0-1); Hemoglobin 13.3 g/dL (13.0-16.5); Lymphocyte # 1.74 X10^3/ul (0.83-4.51); Lymphocyte % 17.9 % (19-41); Mean Corp Hgb Conc 34.1 g/dL (32-36); Mean Corpuscular Volume 93.8 fL (80-94); Mean Platelet Vol. 10.7 fl (6.2-12.0); Monocyte# 0.53 X10^3/uL; Monocyte% 5.5 % (0-10); NRBC Flagged by Analyzer 0 % (0-5); Neutrophil # 7.37 X10^3/uL (2.7-7.7); Neutrophil % 75.9 % (47-70); Platelet Count 392 K/mm3 (150-450); RBC Distribution Width CV 14.2 % (11.6-14.6); RBC Distribution Width SD 48.7 fl (35.1-43.9); Red Blood Count 4.16 M/mm3 (4.6-6.2); White Blood Count 9.7 K/mm3 (4.4-11.0)
--- OUTSIDE RECORDS SUMMARY | 2023-09-16 13:46 | XMS RPT_ITS | CCD ---
Author Name Unknown Address [address] [place] [address] Organization [facility] Care Team Providers Care Lpn Medical Assistant Name Role Phone Unavailable Primary Care Provider Unavailabl e Medications Current Medications Medication Drug Class(es) Dates Sig (Normalized) Sig (Original) naproxen 500 mg oral tablet (3 sources) Nonsteroidal Anti-inflammatory Drug Start: 09-23-2019 naproxen (NAPROSYN) tablet 500 mg Problems Active Problems Problem Classification Problem Date Documented Da te Episodic/Chronic Mood disorders (1 source) Depressive disorder Chronic Past or Other Problems Problem Classification Problem Date Documented Da te Episodic/Chronic Other nervous system disorders (1 source) Paresthesia of hand Episodic Results Test Name Value Interpretation Reference Range Facil ity Vital Signs Date Time Vital Sign Value Performing Clinician Faci lity 09-25-2019 14:00-0500 Body temperature 97.5 [degF] Stuart Queen MD Work Phone: [employer] Work Phone: 09-25-2019 14:00-0500 Diastolic blood pressure 79 mm[Hg] Stuart Queen MD Work Phone: [facility] Work Phone: 09-25-2019 14:00-0500 Heart rate 74 /min Stuart Queen MD Work Phone: [facility] Work Phone: 09-25-2019 14:00-0500 Respiratory rate 18 /min Stuart Queen MD Work Phone: [facility] Work Phone: 09-25-2019 14:00-0500 SaO2% (BldA) [Mass fraction] 100 % Stuart Queen MD Work Phone: [facility] Work Phone: 09-25-2019 14:00-0500 Systolic blood pressure 105 mm[Hg] Stuart Queen MD Work Phone: [facility] Work Phone: 09-25-2019 04:08-0500 Body height 170.2 cm Stuart Queen MD Work Phone: [facility] Work Phone: 09-25-2019 04:08-0500 Body mass index (BMI) [Ratio] 20.36 kg/m2 Stuart Queen MD Work Phone: [facility] Work Phone: 09-25-2019 04:08-0500 Body weight 58.97 kg Stuart Queen MD Work Phone: [facility] Work Phone: 09-23-2019 15:51-0500 Body height 170.2 cm [employer] Work Phone: 09-23-2019 15:51-0500 Body temperature 99.1 [degF] [employer] Work Phone: 09-23-2019 15:51-0500 Diastolic blood pressure 92 mm[Hg] [employer] Work Phone: 09-23-2019 15:51-0500 Heart rate 98 /min [facility] Work Phone: 09-23-2019 15:51-0500 Respiratory rate 18 /min [employer] Work Phone: 09-23-2019 15:51-0500 SaO2% (BldA) [Mass fraction] 99 % [employer] Work Phone: 09-23-2019 15:51-0500 Systolic blood pressure 124 mm[Hg] [employer] Work Phone: Encounters Encounter Date Encounter Type Care Provider Facility Start: 09-25-2019 End: 09-25-2019 Emergency department patient visit Stuart Queen MD Work Phone: [facility] Emergency Dept Procedures Date Procedure Procedure Detail Performing Clinician Start: 10-24-2021 Antibody screen Plan of Treatment Date Care Activity Detail Author Start: 04-29-2019 Influenza vaccination Flu vaccine (# 1) [employer] Work Phone: Social History Date Type Detail Facility Start: 09-23-2019 Tobacco smoking stat [facility] Light tobacco smoker [employer] Work Phone: History of tobacco use Cigarette Smoker [facility] Start: 09-23-2019 End: 09-25-2019 Alcohol intake Current drinker of alcohol (finding) [employer] Work Phone: Start: 09-23-2019 Tobacco Comment 3-4/day [facility] Work Phone: Start: 09-23-2019 Alcohol Comment As much as I can ge t [employer] Work Phone: Sex Assigned At Not on file [employer] Work Phone: Start: 09-25-2019 Tobacco smoking stat [facility] Current every day smoker [employer] Work Phone: Start: 09-25-2019 Alcohol Comment 2xweek [employer] Work Phone: Clinical Notes 09-23-2019 to 10-30-2021 InstructionsAttachments Note Date & Type Note Facility 10-30-2021 Note HNO ID: [id number] Author: Ana Bill APRN.HOG CUTTER Service: Plastic Surgery Author Type: Nurse Practitioner Type: Progress Notes Filed: 10/30/2021 11:40 AM Note Text: PLASTIC SURGERY PROGRESS NOTE OR DATE: 10/29/2021 1 Day Post-Op Procedure(s) (LRB): REMOVAL FOREIGN BODY NOSE (Right) Hospital Day: 7 INTERVAL HISTORY: Patient resting in bed this am. No problems overnight. Pain controlled. Tolerated diet. Ambulating. Denies fevers / chills. Complains of not being able to breathe out of his right nares. Also complains of some numbness to right face. MEDICATIONS: Current Facility-Administered Medications Medication Dose Route Frequency - NaCl 0.9% iv flush bag 20 mL INTRAVENOUS PRN - sodium chloride 0.9 % (flush) 3-5 mL (BD POSIFLUSH) 3-5 mL INTRAVENOUS q 12 H - ondansetron 4 mg tab(s) (ZOFRAN) 4 mg ORAL q 6 H PRN Or - ondansetron (PF) 4 mg injection (ZOFRAN) 4 mg INTRAVENOUS q 6 H PRN - melatonin 3 mg tab(s) 3 mg ORAL DAILY (8 PM) - acetaminophen 1,000 mg tab(s) (TYLENOL) 1,000 mg ORAL QID - oxyCODONE IR 5-10 mg tab(s) (ROXICODONE) 5-10 mg ORAL q 6 H PRN - morphine 2 mg injection 2 mg INTRAVENOUS q 3 H PRN - senna-docusate 8.6-50 mg 1 tablet (SENNA-S) 1 tablet ORAL BID - enoxaparin 30 mg injection (LOVENOX) 30 mg SUBCUTANEOUS q 12 HR - Chlorhexidine Gluconate 0.12 % 15 mL (PERIDEX) 15 mL ORAL PC and HS PHYSICAL EXAM: BP 140/75 Pulse 68 Temp 36.8 ?C (98.2 ?F) (Axillary) Resp 18 Ht 170.2 cm (5' 7 ) Wt 57 kg (125 lb 10.6 oz) SpO2 98% BMI 19.68 kg/m? General: Appears age appropriate. No acute distress. Resting comfortably. Neuro: AANDOx3. Strength and sensation normal. Head/face: Numbness to right facial nerve. Right upper lip facial swelling improved. No active drainage. Occlusion normal. Nose: No septal hematoma. No rhinorrhea. Tenderness to palpation. Decreased air flow to right nares. Deviated septum. Eyes:EOMI. Sclera not icteric, not injected MSK:Extremities without clubbing, cyanosis, edema. Normal ROM x 4. Skin:Warm and dry. No open wounds or rashes. Wound/Incision: Open wound to right anterior palate. No drainage. DATA: Intake/Output Summary (Last 24 hours) at 10/30/2021 0848 Last data filed at 10/30/2021 0050 Gross per 24 hour Intake 600 ml Output ? Net 600 ml CBC, Coags, BMP, Mg, Phos Recent Labs 10/29/21 1108 WBC 8.95 HB 13.3 HCT 41.2 PLT 569* NA 136 K 4.3 CHLOR 96* CO2 27 BUN 8* CREAT 0.93 GLUC 121* CA 9.3 ASSESSMENT AND PLAN: (S02.42XA) Closed fracture of alveolar process of maxilla, initial encounter ([facility]) (W19.XXXA) Fall, initial encounter 56 y/o M s/p mechanical fall with displaced right incisor into right nares and alveolar fracture. Patient is s/p removal foreign body from right nares with Dr. Herman on 10/29. - Discussed with Dr. Herman - Pain well controlled - Salt water or Peridex rinses after meals until the mucosa has healed. - May perform dental hygiene gently - Diet as tolerated - Follow-up in 2 to 3 weeks from discharge. Would arrange for dental follow-up as well. - Ok to discharge from plastic surgery standpoint SIGNATURE: Ana Bill APRN.HOG C[employer]TER [facility] Date of Service: October 30, 2021 [facility] 10-30-2021 Note HNO ID: [id number] Author: Patrick Spangler PA-C Service: General Surgery Author Type: Physician Food Service Substitute Type: Progress Notes Filed: 10/30/2021 8:37 AM Note Text: Trauma Surgery Progress Note SERVICE DATE: 10/30/2021 Trauma Service Pager: For questions or concerns Mon-Fri 6a-5p please page [phone]. After 5pm and on Weekends and Holidays, please page [phone] if in ICU or [phone] if on RNF. SUBJECTIVE: Patient is POD 1. He has tolerated his dental soft diet post operatively. His pain is well controlled. He does endorse difficulty of breathing through his nose. No other new focal complaints. He again denied any N/V, ABD pain, CP, SOB, fevers, chills, or cough. OBJECTIVE: Vitals: Temp (24hrs), Av.7 ?C (98 ?F), Min:36 ?C (96.8 ?F), Max:37.8 ?C (100 ?F) BP 140/75 Pulse 68 Temp 36.8 ?C (98.2 ?F) (Axillary) Resp 18 Ht 170.2 cm (5' 7 ) Wt 57 kg (125 lb 10.6 oz) SpO2 98% BMI 19.68 kg/m? O2 Therapy: Room Air IANDO: Date 10/29/21699 - 10/30/2159 10/30/21699 - 10/31/21 0659 Shift 9989-1006 3279-6639 8966-0295 24 Hour Total 9248-3872 0442-0879 7157-0496 24 Hour Total INTAKE PO 200 200 PO 200 200 IV 900 900 Volume (mL) (lactated ringers iv infusion) 500 500 Volume (mL) (lactated ringers iv infusion) 400 400 Shift Total 976 117 5882 OUTPUT Urine Urine Not Saved. 1 x 1 x Shift Total Weight (kg) 57 57 57 57 57 57 57 57 MEDICATIONS: Current Facility-Administered Medications Medication Dose Route Frequency - enoxaparin 30 mg injection (LOVENOX) 30 mg SUBCUTANEOUS q 12 HR - Chlorhexidine Gluconate 0.12 % 15 mL (PERIDEX) 15 mL ORAL PC and HS - senna-docusate 8.6-50 mg 1 tablet (SENNA-S) 1 tablet ORAL BID - NaCl 0.9% iv flush bag 20 mL INTRAVENOUS PRN - sodium chloride 0.9 % (flush) 3-5 mL (BD POSIFLUSH) 3-5 mL INTRAVENOUS q 12 H - ondansetron 4 mg tab(s) (ZOFRAN) 4 mg ORAL q 6 H PRN Or - ondansetron (PF) 4 mg injection (ZOFRAN) 4 mg INTRAVENOUS q 6 H PRN - melatonin 3 mg tab(s) 3 mg ORAL DAILY (8 PM) - acetaminophen 1,000 mg tab(s) (TYLENOL) 1,000 mg ORAL QID - oxyCODONE IR 5-10 mg tab(s) (ROXICODONE) 5-10 mg ORAL q 6 H PRN - morphine 2 mg injection 2 mg INTRAVENOUS q 3 H PRN Labs: Recent Labs 10/29/21 1108 NA 136 K 4.3 CHLOR 96* CO2 27 BUN 8* CREAT 0.93 GLUC 121* ANION 13 CA 9.3 WBC 8.95 HB 13.3 HCT 41.2 PLT 569* PHYSICAL EXAM: Genl: Appears age appropriate. No acute distress. Resting comfortably. Head/Face: Normocephalic. Right upper lip facial swelling improved. No active drainage. Eyes: EOMI. Sclera not icteric, not injected Resp: Breathing is non-labored on RA CVS: RRR as above; 2+ pulses at RA, DP, PT bilat. GI: Abdomen is soft, non-tender, not distended. No peritonitis. MSK: Extremities without clubbing, cyanosis, edema. Normal ROM x 4. Skin: Warm and dry. Not jaundiced. Neuro: AANDOx3. Strength and sensation normal. TABARES. GCS15. Psych: Normal mood. Normal affect. Appropriate insight into current situation. ASSESSMENT AND PLAN: Active Hospital Problems Diagnosis Date Noted - Nicotine use disorder, F17.2 10/28/2021 - Fall 10/25/2021 - Closed fracture of sixth cervical vertebra (HCC) 10/25/2021 - Closed fracture of facial bone (HCC) 10/25/2021 - Substance abuse ([facility]) 10/25/2021 56 year old male s/p unwitnessed GLF (Level III) on 10/25/2021 Imaging performed: 1. (10/24/2021) - CT HNFCAP, XR pelvis Traumatic Injuries: 1. Acute fracture anterior aspect of the right para-midline alveolar ridge with displacement of the right first maxillary incisor 2. Minimally displaced fracture inferior endplate C6 osteophyte Operations/Procedures: 1. Debridement bone face 2 cm and Foreign body removal (complicated) on 10/29/2021 (Plastic Surgery - Dr. Panda Herman) Care Plan: 1. Alveolar ridge fracture: 1. Plastic surgery consulted 2. POD 1 of above listed procedure 3. OMFS consult - patient will need to be seen outpatient and will need dentistry evaluation (per Dr. Martinez) 4. Pain control 5. Dental Soft diet 6. Continue Peridex rinses after meals 7. May perform dental hygiene gently 8. Resume Lovenox on 10/30 9. Follow up with Dr. Herman in 2 weeks 2. C6 osteophyte fracture: 1. NSX consulted 2. Non-op management 3. C-collar cleared on 10/25 4. Ok to mobilize 3. Social work consulted: 1. + tox screen 2. Patient reportedly homeless 3. Plan is to DC to [facility] in [place] 4. Syncopal episodes 1. Cardiology consulted 2. ECHO completed 10/26 3. Needs event monitor at discharge 5. Current diet order: DIET FOOD CONSISTENCY CONTROLLED 6. Pain regimen: Tylenol, prn Oxycodone, Morphine 7. Bowel regimen: Senna-s 8. Labs: CBC pending this morning PPX: 1. DVT: Lovenox; SCDs; Mobilize 2. Ulcer: NA 3. Vit D level if > 65 yo: NA Consulted Services: 1. Trauma 2. PRS 3. NSX 4. OMFS (no formal consult note) Dispo Plannin. PT/OT recs home. Case managem (more content not included)... [facility] 10-29-2021 Note HNO ID: [id number] Author: Patrick Spangler PA-C Service: General Surgery Author Type: Physician Food Service Substitute Type: Progress Notes Filed: 10/29/2021 10:59 AM Note Text: Trauma Surgery Progress Note SERVICE DATE: 10/29/2021 Trauma Service Pager: For questions or concerns Mon-Fri 6a-5p please page [phone]. After 5pm and on Weekends and Holidays, please page [phone] if in ICU or [phone] if on RNF. SUBJECTIVE: Patient seen post operatively today. He is hungry and wants a diet ordered. No new focal complaints. He denied any right shoulder pain this morning. He denied any N/V, ABD pain, CP, SOB, fevers, chills, or cough. OBJECTIVE: Vitals: Temp (24hrs), Av.8 ?C (98.2 ?F), Min:36 ?C (96.8 ?F), Max:37.3 ?C (99.1 ?F) BP 144/104 Pulse 79 Temp 36.3 ?C (97.3 ?F) (Axillary) Resp 18 Ht 170.2 cm (5' 7 ) Wt 57 kg (125 lb 10.6 oz) SpO2 97% BMI 19.68 kg/m? O2 Therapy: Room Air IANDO: Date 10/28/21699 - 10/29/21 0659 10/29/21 07 - 10/30/21 0659 Shift 9880-4181 6397-5022 4449-7925 24 Hour Total 3706-1646 1590-7757 7912-9523 24 Hour Total INTAKE PO 480 480 PO 480 480 IV 900 900 Volume (mL) (lactated ringers iv infusion) 500 500 Volume (mL) (lactated ringers iv infusion) 400 400 Shift Total 480 480 900 900 OUTPUT Urine Urine Not Saved. 1 x 1 x Shift Total Weight (kg) 57 57 57 57 57 57 57 57 MEDICATIONS: Current Facility-Administered Medications Medication Dose Route Frequency - Chlorhexidine Gluconate 0.12 % 15 mL (PERIDEX) 15 mL ORAL PC and HS - senna-docusate 8.6-50 mg 1 tablet (SENNA-S) 1 tablet ORAL BID - NaCl 0.9% iv flush bag 20 mL INTRAVENOUS PRN - sodium chloride 0.9 % (flush) 3-5 mL (BD POSIFLUSH) 3-5 mL INTRAVENOUS q 12 H - ondansetron 4 mg tab(s) (ZOFRAN) 4 mg ORAL q 6 H PRN Or - ondansetron (PF) 4 mg injection (ZOFRAN) 4 mg INTRAVENOUS q 6 H PRN - melatonin 3 mg tab(s) 3 mg ORAL DAILY (8 PM) - acetaminophen 1,000 mg tab(s) (TYLENOL) 1,000 mg ORAL QID - oxyCODONE IR 5-10 mg tab(s) (ROXICODONE) 5-10 mg ORAL q 6 H PRN - morphine 2 mg injection 2 mg INTRAVENOUS q 3 H PRN Labs: No results for input(s): NA, K, CHLOR, CO2, BUN, CREAT, GLUC, ANION, CA, MG, P, ALB, AST, ALT, ALKPHOS, TBILI, DBILI, PHOSINTL, WBC, HB, HCT, PLT, LACT, INR, PH, PCO2, PO2, BE, HCO3 in the last 72 hours. Invalid input(s): LISDBC PHYSICAL EXAM: Genl: Appears age appropriate. No acute distress. Resting comfortably. Head/Face: Normocephalic. Right upper lip facial swelling noted. No active drainage. Eyes: EOMI. Sclera not icteric, not injected Resp: Breathing is non-labored on RA CVS: RRR as above; 2+ pulses at RA, DP, PT bilat. GI: Abdomen is soft, non-tender, not distended. No peritonitis. MSK: Extremities without clubbing, cyanosis, edema. Normal ROM x 4. Skin: Warm and dry. Not jaundiced. Neuro: AANDOx3. Strength and sensation normal. TABARES. GCS15. Psych: Normal mood. Normal affect. Appropriate insight into current situation. ASSESSMENT AND PLAN: Active Hospital Problems Diagnosis Date Noted - Nicotine use disorder, F17.2 10/28/2021 - Fall 10/25/2021 - Closed fracture of sixth cervical vertebra (HCC) 10/25/2021 - Closed fracture of facial bone (HCC) 10/25/2021 - Substance abuse (HCC) 10/25/2021 56 year old male s/p unwitnessed GLF (Level III) on 10/25/2021 Imaging performed: 1. (10/24/2021) - CT HNFCAP, XR pelvis Traumatic Injuries: 1. Acute fracture anterior aspect of the right para-midline alveolar ridge with displacement of the right first maxillary incisor 2. Minimally displaced fracture inferior endplate C6 osteophyte Operations/Procedures: 1. Debridement bone face 2 cm and Foreign body removal (complicated) on 10/29/2021 (Plastic Surgery - Dr. Panda Herman) Care Plan: 1. Alveolar ridge fracture: 1. Plastic surgery consulted 2. POD 0 of above listed procedure 3. OMFS consult - patient will need to be seen outpatient and will need dentistry evaluation (per Dr. Martinez) 4. Pain control 5. Dental Soft diet 6. Resume Lovenox on 10/30 7. Follow up with Dr. Herman in 2 weeks 2. C6 osteophyte fracture 1. NSX consulted 2. Non-op management 3. C-collar cleared on 10/25 4. Ok to mobilize 3. Social work consulted 1. + tox screen 2. Patient reportedly homeless 4. Syncopal episodes 1. Cardiology consulted 2. ECHO completed 10/26 3. Needs event monitor at discharge 5. Current diet order: DIET FOOD CONSISTENCY CONTROLLED 6. Pain regimen: Tylenol, prn Oxycodone, Morphine 7. Bowel regimen: Senna-s 8. Labs: As above PPX: 1. DVT: Lovenox; SCDs; Mobilize 2. Ulcer: NA 3. Vit D level if > 65 yo: NA Consulted Services: 1. Trauma 2. PRS 3. NSX 4. OMFS (no formal consult note) Dispo Plannin. PT/OT recs home. Case management following. Incidentals: 1. Cystic nodule in the left lung apex with a few small peripheral nodular components 2. Nonaggressive predominantly left-sided paranasal sinus muc (more content not included)... [facility] 10-28-2021 Note HNO ID: [id number] Author: Celestine Douglass PA-C Service: General Surgery Author Type: Physician Food Service Substitute Type: Progress Notes Filed: 10/28/2021 8:25 AM Note Text: Trauma Surgery Progress Note SERVICE DATE: 10/28/2021 Trauma Service Pager: For questions or concerns Mon-Fri 6a-5p please page [phone]. After 5pm and on Weekends and Holidays, please page [phone] if in ICU or [phone] if on RNF. SUBJECTIVE: NAEON. Patient sitting up at the edge of the bed this morning eating pancakes and in good spirits. He currently has no complaints and his pain is controlled. No new focal concerns. Aware of plans for OR tomorrow with PRS. OBJECTIVE: Vitals: Temp (24hrs), Av.6 ?C (97.8 ?F), Min:36.3 ?C (97.3 ?F), Max:36.7 ?C (98.1 ?F) BP 137/91 Pulse 88 Temp 36.6 ?C (97.9 ?F) (Axillary) Resp 17 Ht 170.2 cm (5' 7 ) Wt 57 kg (125 lb 10.6 oz) SpO2 99% BMI 19.68 kg/m? O2 Therapy: Room Air IANDO: Date 10/27/21 07 - 10/28/21 0659 10/28/21 07 - 10/29/21 0659 Shift 5475-9527 8880-5927 8908-0861 24 Hour Total 0138-6267 3742-1381 5512-8581 24 Hour Total INTAKE PO 480 120 600 PO 480 120 600 Shift Total 480 120 600 OUTPUT Urine Urine Not Saved. 1 x 1 x # of BMs Number of BMs 1 x 1 x Shift Total Weight (kg) 57 57 57 57 57 57 57 57 MEDICATIONS: Current Facility-Administered Medications Medication Dose Route Frequency - senna-docusate 8.6-50 mg 1 tablet (SENNA-S) 1 tablet ORAL BID - enoxaparin 30 mg injection (LOVENOX) 30 mg SUBCUTANEOUS BID - NaCl 0.9% iv flush bag 20 mL INTRAVENOUS PRN - sodium chloride 0.9 % (flush) 3-5 mL (BD POSIFLUSH) 3-5 mL INTRAVENOUS q 12 H - ondansetron 4 mg tab(s) (ZOFRAN) 4 mg ORAL q 6 H PRN Or - ondansetron (PF) 4 mg injection (ZOFRAN) 4 mg INTRAVENOUS q 6 H PRN - melatonin 3 mg tab(s) 3 mg ORAL DAILY (8 PM) - acetaminophen 1,000 mg tab(s) (TYLENOL) 1,000 mg ORAL QID - oxyCODONE IR 5-10 mg tab(s) (ROXICODONE) 5-10 mg ORAL q 6 H PRN - morphine 2 mg injection 2 mg INTRAVENOUS q 3 H PRN - perflutren lipid microspheres 1.1 mg/mL 1.3 mL injection (DEFINITY) 1.3 mL INTRAVENOUS DIRECTED PRN Labs: Recent Labs 10/26/21 0320 NA 138 K 4.2 CHLOR 104 CO2 23 BUN 9 CREAT 0.87 GLUC 113* ANION 11 CA 8.6 WBC 6.62 HB 12.2* HCT 36.6* PLT 450* PHYSICAL EXAM: Genl: Appears age appropriate. No acute distress. Resting comfortably. Head/Face: Normocephalic. Right upper lip facial swelling improved. Eyes: EOMI. Sclera not icteric, not injected Resp: Breathing is non-labored on RA CVS: RRR as above; 2+ pulses at RA, DP, PT bilat. GI: Abdomen is soft, non-tender, not distended. Bowel sounds normoactive. No peritonitis. MSK: Extremities without clubbing, cyanosis, edema. Normal ROM x 4. Skin: Warm and dry. Not jaundiced. Neuro: AANDOx3. Strength and sensation normal. TABARES. GCS15. Psych: Normal mood. Normal affect. Appropriate insight into current situation. ASSESSMENT AND PLAN: Active Hospital Problems Diagnosis Date Noted - Nicotine use disorder, F17.2 10/28/2021 - Fall 10/25/2021 - Closed fracture of sixth cervical vertebra (HCC) 10/25/2021 - Closed fracture of facial bone (HCC) 10/25/2021 - Substance abuse (HCC) 10/25/2021 56 year old male s/p unwitnessed GLF (Level III) on 10/25/2021 Imaging performed: 1. (10/24/2021) - CT HNFCAP, XR pelvis Traumatic Injuries: 1. Acute fracture anterior aspect of the right para-midline alveolar ridge with displacement of the right first maxillary incisor 2. Minimally displaced fracture inferior endplate C6 osteophyte Operations/Procedures: 1. None Care Plan: 1. Alveolar ridge fracture 1. PRS consulted 2. Plan for OR 10/29 for foreign body removal of right nares 3. OMFS consult - patient will need to be seen outpatient and will need dentistry evaluation (per Dr. Martinez) 4. Pain control 5. Soft diet 6. NPO @ [place] 10/29/2021 2. C6 osteophyte fracture 1. NSX consulted 2. Non-op management 3. C-collar cleared on 10/25 4. Ok to mobilize 3. Social work consulted 1. + tox screen 2. Patient reportedly homeless 4. Syncopal episodes 1. Cardiology consulted 2. ECHO completed 10/26 3. Needs event monitor at discharge Current diet order: DIET FOOD CONSISTENCY CONTROLLED 5. DIET NPO 6. Pain regimen: Tylenol, prn Oxycodone, Morphine 7. Bowel regimen: Senna-s 8. Labs: As above PPX: 1. DVT: Lovenox; SCDs; Mobilize 2. Ulcer: NA 3. Vit D level if > 65 yo: NA Consulted Services: 1. Trauma 2. PRS 3. NSX 4. OMFS (no formal Dispo Plannin. PT/OT recs home. Case management following. Incidentals: Cystic nodule in the left lung apex with a few small peripheral nodular components Nonaggressive predominantly left-sided paranasal sinus mucosal disease as described. Dental cavities Follow Up Needs: 1. PRS - Dr. Herman - timing TBD Staff Trauma Surgeon: Dr. Brown Portions of text from this note were copied. All relevant (more content not included)... [facility] 10-27-2021 Note HNO ID: [id number] Author: Celestine Douglass PA-C Service: General Surgery Author Type: Physician Food Service Substitute Type: Progress Notes Filed: 10/27/2021 9:13 AM Note Text: Trauma Surgery Progress Note SERVICE DATE: 10/27/2021 Trauma Service Pager: For questions or concerns Mon-Fri 6a-5p please page [phone]. After 5pm and on Weekends and Holidays, please page [phone] if in ICU or [phone] if on RNF. SUBJECTIVE: NAEON. Pain generally well-controlled. Tolerating soft diet. No new focal complaints at this time. Able to ambulate on his own to restroom. OBJECTIVE: Vitals: Temp (24hrs), Av.4 ?C (97.6 ?F), Min:36.1 ?C (97 ?F), Max:36.8 ?C (98.2 ?F) BP 120/81 Pulse 64 Temp 36.2 ?C (97.2 ?F) (Axillary) Resp 12 Ht 170.2 cm (5' 7 ) Wt 57 kg (125 lb 10.6 oz) SpO2 98% BMI 19.68 kg/m? O2 Therapy: Room Air IANDO: Date 10/26/21699 - 10/27/21 0659 10/27/21699 - 10/28/21 0659 Shift 2292-6359 7903-5101 1270-7181 24 Hour Total 6190-7400 8364-1641 2887-8907 24 Hour Total INTAKE PO 460 240 700 PO 460 240 700 Shift Total 460 240 700 OUTPUT Urine Urine Not Saved. 1 x 1 x 2 x Shift Total Weight (kg) 57 57 57 57 57 57 57 57 MEDICATIONS: Current Facility-Administered Medications Medication Dose Route Frequency - senna-docusate 8.6-50 mg 1 tablet (SENNA-S) 1 tablet ORAL BID - enoxaparin 30 mg injection (LOVENOX) 30 mg SUBCUTANEOUS BID - NaCl 0.9% iv flush bag 20 mL INTRAVENOUS PRN - sodium chloride 0.9 % (flush) 3-5 mL (BD POSIFLUSH) 3-5 mL INTRAVENOUS q 12 H - ondansetron 4 mg tab(s) (ZOFRAN) 4 mg ORAL q 6 H PRN Or - ondansetron (PF) 4 mg injection (ZOFRAN) 4 mg INTRAVENOUS q 6 H PRN - melatonin 3 mg tab(s) 3 mg ORAL DAILY (8 PM) - acetaminophen 1,000 mg tab(s) (TYLENOL) 1,000 mg ORAL QID - oxyCODONE IR 5-10 mg tab(s) (ROXICODONE) 5-10 mg ORAL q 6 H PRN - morphine 2 mg injection 2 mg INTRAVENOUS q 3 H PRN - perflutren lipid microspheres 1.1 mg/mL 1.3 mL injection (DEFINITY) 1.3 mL INTRAVENOUS DIRECTED PRN Labs: Recent Labs 10/26/21 0320 10/25/21 0320 10/24/216 NA 138 136 -- K 4.2 4.0 -- CHLOR 104 103 -- CO2 23 24 -- BUN 9 17 -- CREAT 0.87 1.02 -- GLUC 113* 121* -- ANION 11 9 -- CA 8.6 8.4* -- WBC 6.62 10.10 -- HB 12.2* 11.7* -- HCT 36.6* 35.1* -- PLT 450* 439* -- INR -- -- 1.0 PHYSICAL EXAM: Genl: Appears age appropriate. No acute distress. Resting comfortably. Head/Face: Normocephalic. Right upper lip facial swelling. Eyes: EOMI. Sclera not icteric, not injected Resp: Breathing is non-labored on RA CVS: RRR as above; 2+ pulses at RA, DP, PT bilat. GI: Abdomen is soft, non-tender, not distended. Bowel sounds normoactive. No peritonitis. MSK: Extremities without clubbing, cyanosis, edema. Normal ROM x 4. Skin: Warm and dry. Not jaundiced. Neuro: AANDOx3. Strength and sensation normal. TABARES. GCS15. Psych: Normal mood. Normal affect. Appropriate insight into current situation. ASSESSMENT AND PLAN: Active Hospital Problems Diagnosis Date Noted - Fall 10/25/2021 - Closed fracture of sixth cervical vertebra (HCC) 10/25/2021 - Closed fracture of facial bone (HCC) 10/25/2021 - Substance abuse (HCC) 10/25/2021 56 year old male s/p unwitnessed GLF (Level III) on 10/25/2021 Imaging performed: 1. (10/24/2021) - CT HNFCAP, XR pelvis Traumatic Injuries: 1. Acute fracture anterior aspect of the right para-midline alveolar ridge with displacement of the right first maxillary incisor 2. Minimally displaced fracture inferior endplate C6 osteophyte Operations/Procedures: 1. None Care Plan: 1. Alveolar ridge fracture 1. PRS consulted 2. Plan for OR 10/29 for foreign body removal of right nares 3. As per PRS recs, will consult OMFS for consideration of tooth and palate fixation 4. Pain control 5. Soft diet 2. C6 osteophyte fracture 1. NSX consulted 2. Non-op management 3. C-collar cleared on 10/25 4. Ok to mobilize 3. Social work consulted 1. + tox screen 2. Patient reportedly homeless 4. Syncopal episodes 1. Cardiology consulted 2. ECHO completed 10/26 3. Needs event monitor at discharge Current diet order: DIET FOOD CONSISTENCY CONTROLLED 5. DIET NPO 6. Pain regimen: Tylenol, prn Oxycodone, Morphine 7. Bowel regimen: Senna-s 8. Labs: As above PPX: 1. DVT: Lovenox; SCDs; Mobilize 2. Ulcer: NA 3. Vit D level if > 65 yo: NA Consulted Services: 1. Trauma 2. PRS 3. NSX 4. OMFS (pending) Dispo Plannin. PT/OT recs home. Case management following. Likely to be challenging discharge given homelessness and recent traumatic injuries. Incidentals: Cystic nodule in the left lung apex with a few small peripheral nodular components Nonaggressive predominantly left-sided paranasal sinus mucosal disease as described. Dental cavities Follow Up Needs: 1. PRS - Dr. Herman - timing TBD Staff Trauma Surgeon: Dr. Brown Portions of text from this note were copied. All (more content not included)... [facility] 10-26-2021 Note HNO ID: [id number] Author: Celestine Douglass PA-C Service: General Surgery Author Type: Physician Food Service Substitute Type: Progress Notes Filed: 10/26/2021 8:28 AM Note Text: Trauma Surgery Progress Note SERVICE DATE: 10/26/2021 Trauma Service Pager: For questions or concerns Mon-Fri 6a-5p please page [phone]. After 5pm and on Weekends and Holidays, please page [phone] if in ICU or [phone] if on RNF. SUBJECTIVE: NAEON. Patient sleeping upon my arrival but easily awoken. He notes right facial pain but denies COLEMAN, neck pain or dizziness. No new focal complaints. Tolerating liquids. OBJECTIVE: Vitals: Temp (24hrs), Av.7 ?C (98 ?F), Min:36.6 ?C (97.9 ?F), Max:36.7 ?C (98.1 ?F) BP 112/65 Pulse 76 Temp 36.7 ?C (98.1 ?F) (Oral) Resp 16 Ht 170.2 cm (5' 7 ) Wt 57 kg (125 lb 10.6 oz) SpO2 96% BMI 19.68 kg/m? O2 Therapy: Room Air IANDO: Date 10/25/21 07 - 10/26/21 0659 10/26/21 07 - 10/27/21 0659 Shift 3221-7268 8213-6294 0528-6160 24 Hour Total 0488-2350 6280-3518 8733-0568 24 Hour Total INTAKE PO 9253 706 1490 PO 4240 581 7274 Shift Total 3365 653 0476 OUTPUT Urine 1200 1200 Void (ml) 1200 1200 # of BMs Number of BMs 0 x 0 x Shift Total 1200 1200 Weight (kg) 57.6 57.6 57 57 57 57 57 57 MEDICATIONS: Current Facility-Administered Medications Medication Dose Route Frequency - enoxaparin 30 mg injection (LOVENOX) 30 mg SUBCUTANEOUS BID - NaCl 0.9% iv flush bag 20 mL INTRAVENOUS PRN - sodium chloride 0.9 % (flush) 3-5 mL (BD POSIFLUSH) 3-5 mL INTRAVENOUS q 12 H - ondansetron 4 mg tab(s) (ZOFRAN) 4 mg ORAL q 6 H PRN Or - ondansetron (PF) 4 mg injection (ZOFRAN) 4 mg INTRAVENOUS q 6 H PRN - melatonin 3 mg tab(s) 3 mg ORAL DAILY (8 PM) - acetaminophen 1,000 mg tab(s) (TYLENOL) 1,000 mg ORAL QID - oxyCODONE IR 5-10 mg tab(s) (ROXICODONE) 5-10 mg ORAL q 6 H PRN - morphine 2 mg injection 2 mg INTRAVENOUS q 3 H PRN - sodium chloride 0.9 % (flush) 2-10 mL (BD POSIFLUSH) 2-10 mL INTRAVENOUS DIRECTED PRN And - perflutren lipid microspheres 1.1 mg/mL 1.3 mL injection (DEFINITY) 1.3 mL INTRAVENOUS DIRECTED PRN Labs: Recent Labs 10/26/21 0320 10/25/21 0320 10/24/216 NA 138 136 -- K 4.2 4.0 -- CHLOR 104 103 -- CO2 23 24 -- BUN 9 17 -- CREAT 0.87 1.02 -- GLUC 113* 121* -- ANION 11 9 -- CA 8.6 8.4* -- WBC 6.62 10.10 -- HB 12.2* 11.7* -- HCT 36.6* 35.1* -- PLT 450* 439* -- INR -- -- 1.0 PHYSICAL EXAM: Genl: Appears age appropriate. No acute distress. Resting comfortably. Head/Face: Normocephalic. Right upper lip facial swelling. Eyes: EOMI. Sclera not icteric, not injected Neck: No mid-line masses. C-spine non-tender. Resp: Breathing is non-labored on RA @ 96%. CVS: RRR as above; 2+ pulses at RA, DP, PT bilat. GI: Abdomen is soft, non-tender, not distended. Bowel sounds normoactive. No peritonitis. MSK: Extremities without clubbing, cyanosis, edema. Normal ROM x 4. Skin: Warm and dry. Not jaundiced. Neuro: AANDOx3. Strength and sensation normal. TABARES. GCS15. Psych: Normal mood. Normal affect. Appropriate insight into current situation. ASSESSMENT AND PLAN: Active Hospital Problems Diagnosis Date Noted - Fall 10/25/2021 - Closed fracture of sixth cervical vertebra (HCC) 10/25/2021 - Closed fracture of facial bone (HCC) 10/25/2021 - Substance abuse (HCC) 10/25/2021 56 year old male s/p unwitnessed GLF (Level III) on 10/25/2021 Imaging performed: 1. (10/24/2021) - CT HNFCAP, XR pelvis Traumatic Injuries: 1. Acute fracture anterior aspect of the right para-midline alveolar ridge with displacement of the right first maxillary incisor 2. Minimally displaced fracture inferior endplate C6 osteophyte Operations/Procedures: 1. None Care Plan: 1. Alveolar ridge fracture 1. PRS consult (pending) 2. Pain control 3. Soft diet 2. C6 osteophyte fracture 1. NSX consulted 2. Non-op management 3. C-collar cleared on 10/25 4. Ok to mobilize 3. Social work consulted 1. + tox screen 2. Patient reportedly homeless 4. Syncopal episodes 1. Cardiology consulted 2. ECHO pending 3. Needs event monitor at discharge 5. Current diet order: DIET FOOD CONSISTENCY CONTROLLED 6. Pain regimen: Tylenol, prn Oxycodone, Morphine 7. Bowel regimen: Senna-s 8. Labs: As above PPX: 1. DVT: Lovenox; SCDs; Mobilize 2. Ulcer: NA 3. Vit D level if > 65 yo: NA Consulted Services: 1. Trauma 2. PRS 3. NSX Dispo Plannin. PT/OT recs pending. Case management following. Incidentals: Cystic nodule in the left lung apex with a few small peripheral nodular components Nonaggressive predominantly left-sided paranasal sinus mucosal disease as described. Dental cavities Follow Up Needs: 1. PRS - Dr. Herman - timing TBD Staff Trauma Surgeon: Dr. Connor SIGNATURE: Celestine Douglass PA-C PATIENT NAME: Atif Faust DATE: 10/26/2021 TIME: 8:12 AM Pager: see below Trauma Ser (more content not included)... [facility] 10-25-2021 Note HNO ID: [id number] Author: ELVIS Muñoz Service: Care Management Author Type: Senior Sales Assistant Type: Care Mgt Progress Note Filed: 10/25/2021 7:30 PM Note Text: CARE MANAGEMENT PROGRESS NOTE SERVICE DATE: 10/25/2021 SERVICE TIME: 7:26 PM LOS: 0 days ALCOHOL USE HISTORY: 1. Consumption Screening Male 5 or more drinks in one session:Yes More than 2 drinks per day:No More than 14 drinks per week:Yes 2. Have you ever felt you should cut down on your drinking? No 3. Have people annoyed you by criticizing your drinking? No 4. Have you ever felt bad or guilty about drinking? No 5. Have you ever had a drink first thing in the morning to steady your nerves or get rid of a hangover (eye web content writer)? No 6. CAGE Screening? No 7. If patient has a positive screen CAGE or Consumption, what is their total number of drinks per day? 0 8. Date of last alcohol use: Unknown ALCOHOL/DRUG HISTORY: Marijuana, Methamphetamines Has drinking/drug use affected your work performance? No Has drinking/drug use caused you to miss work? No Has drinking/drug use affected your relationships? No Has drinking/drug use affected your health? No Has drinking/drug use had legal consequences? Yes Do you have a history of substance abuse treatment? No MENTAL HEALTH HISTORY: Do you have a history of mental health issues? No Have you ever had any behavioral problems/anger management issues? No PSYCHOSOCIAL ASSESSMENT: Current living situation: Homeless Social supports: Friends/ Family Do you have a family history of alcohol/drug use? No Do you have a family history of mental health issues? No Significant childhood events (trauma, abuse, neglect)? No Current or past history of abuse/neglect? No Cultural beliefs related to alcohol/drug use? No Self care issues? No Difficulty communicating with others? No Financial difficulties? Yes Currently employed? No Student? No Past or present ? No PLAN/RECOMMENDATIONS: Patient Education: Relapse Prevention Recommended/Reviewed Abstinence for the following: Contraindicated medical condition present Motivation to seek treatment at this time: Medium Barriers to seeking treatment: No barriers identified Treatment Referral: Provided Treatment Resources Other Referrals: SW was consulted due to patient being transported to [facility] following a fall. Patient reports that he was intoxicated at the time of the fall and reports smoking THC, and ICE. patient reports daily THC use but reported that this is the first time he has used Methamphetamine. Patient reports that he would likely not attended Substance abuse treatment but was agreeable to take resources. SW provided patient with substance abuse resources. [facility] will continue to follow clinical course SIGNATURE: ELVIS Muñoz PATIENT NAME: Atif Faust DATE: October 25, 2021 TIME: 7:26 PM PAGER/CONTACT #: [phone] [facility] 10-25-2021 Note HNO ID: [id number] Author: ELVIS Muñoz Service: Care Management Author Type: Senior Sales Assistant Type: Care Mgt Initial Assessment Filed: 10/25/2021 7:26 PM Note Text: CARE MANAGEMENT: ASSESSMENT AND DISCHARGE PLAN SERVICE DATE: October 25, 2021 SERVICE TIME: 7:22 PM PRIMARY CARE PHYSICIAN: No primary care provider on file. 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 Last discharge within 30 days: No Advance Directive: Current Advance Directive: None Radar Signal Processing Engineer Attempted to Assist with AD Completion: Yes Action: Patient Unwilling Health LiteracyHow often do you need to have someone help you when you read instructions, pamphlets, or other written material from your doctor or pharmacy? : 1 - Never How confident are you filling out medical forms by yourself?: 1 - Extremely If Patient scores > 3 on either question, the following interventions were put into place:: Patient did not score > 3 on either question. Baseline Mental Status Prior to this Illness what was the patient's Baseline Mental Status?: Alert AND Oriented Prior to this illness, has anyone described the patient having any of the following behaviors?: Not Applicable Relationship of the informant to the patient:: Self Functional Status: Independent Does Patient Currently Receive Any Community Services or Home Care?: None Equipment Prior to Admission: None Has the Patient Been in a Retirement Facility in the Past 30 days?: No SOCIAL: Living Arrangements: Homeless Lives With: Alone Financial Resources: Unemployed Primary Contact: Extended Emergency Contact Information Primary Emergency Contact: Tonia Stokes Mobile Relation: Daughter Supportive Patient Contact:: Yes Contact Resources: Family Family Name/Phone: Tonia Stokes Caregiver AssessmentCaregiver is ready, willing and able to meet the patient's needs as recommended by the inter-professional team:: Yes Does the patient have an acute stroke diagnosis, or has the patient had a stroke during this admission?: No Patient's transition needs and plan for meeting these needs: Patient plans to return to The hallway following discharge Patient's perception of need for this admission: Fall Medication Adherance I am convinced of the importance of my prescription medication: 0 - Agree Completely I worry that my prescription medication will do more harm than good to me : 0 - Disagree Completely I feel financially burdened by my [id number] expenses for my prescription medication:: 0 - Disagree Completely Risk Score: 0 Patient is categorized as: Low risk < 2 Are you interested in bedside delivery of your medications? No Is Patient Psychosocially Complex?: No ASSESSMENT AND PLAN: Medical Needs: Medical Needs: Fall risk or frequent falls Psychosocial Needs: Psychosocial Needs: None FREEDOM OF CHOICE EXPLAINED: [place] of Choice Given: No Reason Not Given: No placements necessary POTENTIAL TRANSITION PLANS Home Sw was transported to [facility] following a call. Patient reports that he is currently homeless, and reports being able to ambulate independently. Patient reports having Rx coverage and expressed no issues affording medications. Patient reports using no DME at home. Patient reports having a history of substance abuse including THC, Methamphetamine and Ice. Patient reports having no mobility issues and stated that he is able to complete ADL's independently. Plan for patient to discharge to the hallway following discharge. [facility] he stated that he is been sleeping in a hallway in [place] and plans to return there. Patient declined fdc or housing resources. SW will continue to follow clinical course SIGNATURE: ELVIS Muñoz PATIENT NAME: Atif Faust DATE: October 25, 2021 TIME: 7:22 PM PAGER/CONTACT #: [phone] [facility] 10-25-2021 Note HNO ID: [id number] Author: Gely Clarke PA-C Service: Neurosurgery Author Type: Physician Food Service Substitute Type: Plan of Care Filed: 10/25/2021 1:56 PM Note Text: NSGY Plan of Care: CT cervical: On further review of the study after obtaining additional information from the referring provider on prior CT, there is a tiny minimally displaced fracture through an inferior endplate osteophyte of C6 (series 6 image 85). This can result from flexion type injury. ? Above findings discussed with Dr. Velasquez at time of addendum. Discussed with Dr. Patton. Fracture is very minimal- difficult to fully visualize. No indication for NS intervention. Patient does not need to wear a c-collar. Imaging is stable. NS will SO. No follow up needed Jazmyn Clarke PA-C Pager [phone] [facility] 09-23-2019 Hospital Discharge instructions Livier Quick APRN - CNP - 09/23/2019 You have been given a prescription for Naprosyn. Please take it morning and night. You have been given contact information to the Internal Medicine Center that is here at [facility] so you can establish primary care. The following attachments cannot be sent through Care Everywhere.Hand Pain (Macanese)documented in this encounter [facility] Work Phone: documented in this encounter [facility] Work Phone: Evaluation note* Diagnosis Depression with suicidal ideation- Primary documented in this encounter [facility] Work Phone: Hospital Discharge instructions* Attachments The following attachments cannot be sent through Care Everywhere. * Depression: Self Care (Macanese) [facility] Summary Purpose Family History No Family History Records FoundNo Family History Records FoundNo Family History Records FoundNo Family History Records Found Advance Directives No Advanced Directives Records FoundNo Advanced Directives Records FoundNo Advanced Directives Records FoundNo Advanced Directives Records Found Additional Source Comments (unrecognized sect ion and content) No Status Records FoundNo Status Records FoundNo Status Records FoundNo Status Records Found INFORMATION SOURCE (unrecogn ized section and content) DATE CREATED AUTHOR AUTHOR'S ORGANIZ ATION 05/06/2020 [facility] DATE CREATED AUTHOR AUTHOR'S ORGANIZ ATION 11/03/2021 [facility] DATE CREATED AUTHOR AUTHOR'S ORGANIZ ATION 11/18/[address] [facility] Reason for Visit (unrecogniz ed section and content) Reason Comments Suicidal patient came by [facility], patient stated depressed and having thoughts of SI, plan to slit wrist like always Depression FOR RECORDS PERTAINING TO PATIENTS WHO ARE OR HAVE BEEN ENROLLED IN A CHEMICAL DEPENDENCY/SUBSTANCEABUSE PROGRAM, SOME INFORMATION MAY BE OMITTED. This clinical summary was aggregated from multiple sources. Caution should be exercised in using it in the provision of clinical care. This summary normalizes information from multiple sources, and as a consequence, information in this document may materially change the coding, format and clinical context of patient data. In addition, data may be omitted in some cases. CLINICAL DECISIONS SHOULD BE BASED ON THE PRIMARY CLINICAL RECORDS. [email or web address] provides no warranty or guarantee of the accuracy or completeness of information in this document.
[2023-09-16 13:54] LABS: Anion Gap 15 (5-15); BUN 28 mg/dL (7-18); BUN/Creat Ratio 22.2 RATIO (10-20); Calcium,Total 9.7 mg/dL (8.5-10.1); Chloride 102 mmol/L (98-107); Creatinine, Serum 1.26 mg/dL (0.70-1.30); EST Glomerular Filtration Rate 62 mL/min (>60); Est Glom Filt Rate - Afr Amer 75 mL/min (>60); Estimated Creatinine Clearance 81.04 ml/min; Glucose 67 mg/dL (74-106); Potassium 3.7 mmol/L (3.5-5.1); Sodium Level 139 mmol/L (136-145)
[2023-09-16 14:12] LABS: Alcohol, Blood (Medical)-Serum < 3.0 mg/dL
== END 2023-09-16 14:43 | disposition home or self-care (01) ==
PROVIDERS: Emergency Provider Emergency Medicine; PCP Family Medicine; Visit Provider Emergency Medicine
DX: E86.0 Dehydration (principal); Z59.00 Homelessness unspecified; R06.00 Dyspnea, unspecified; F17.210 Nicotine dependence, cigarettes, uncomplicated
CPT/HCPCS: 71046; 80048; 80320; 85025; 93005; 99282; G0480

== ENCOUNTER 2023-09-17 01:04 | Emergency (ER) | payer MEDICAID, SELFPAY ==
[2023-09-17 01:05] VITALS: BP 136/75; PULSE 69; RESP 27; TEMP 36.6; O2SAT 99; BMI 19.8
--- OUTSIDE RECORDS SUMMARY | 2023-09-17 01:24 | XMS RPT_ITS | CCD ---
Author Name Unknown Address [address] [place] [address] Organization [facility] Care Team Providers Care Environmental Compliance Technician Name Role Phone Unavailable Primary Care Provider [...] 97.5 [degF] Stuart Queen MD Work Phone: [facility] Work Phone: 09-25-2019 14:00-0500 Diastolic blood pressure [...] Phone: 09-23-2019 15:51-0500 Body height 170.2 cm [facility] Work Phone: 09-23-2019 15:51-0500 Body temperature 99.1 [degF] [facility] Work Phone: 09-23-2019 15:51-0500 Diastolic blood pressure 92 mm[Hg] [facility] Work Phone: 09-23-2019 15:51-0500 Heart rate 98 /min [facility] Work Phone: 09-23-2019 15:51-0500 Respiratory rate 18 /min [facility] Work Phone: 09-23-2019 15:51-0500 SaO2% (BldA) [Mass fraction] 99 % [facility] Work Phone: 09-23-2019 15:51-0500 Systolic blood pressure 124 mm[Hg] [facility] Work Phone: Encounters Encounter Date Encounter Type Care Provider Facility Start: 09-25-2019 End: 09-25-2019 Emergency department patient visit Stuart Queen MD Work Phone: [facility] Emergency [facility] Procedures Date Procedure Procedure Detail Performing Clinician Start: 10-24-2021 Antibody screen Plan of Treatment Date Care Activity Detail Author Start: 04-29-2019 Influenza vaccination Flu vaccine (# 1) [facility] Work Phone: Social History Date Type Detail Facility Start: 09-23-2019 Tobacco smoking stat [facility] Light tobacco smoker [facility] Work Phone: History of tobacco use Cigarette Smoker [facility] Start: 09-23-2019 End: 09-25-2019 Alcohol intake Current drinker of alcohol (finding) [facility] Work Phone: Start: 09-23-2019 Tobacco Comment 3-4/day [facility] Work Phone: Start: 09-23-2019 Alcohol Comment As much as I can ge t [facility] Work Phone: Sex Assigned At Not on file [facility] Work Phone: Start: 09-25-2019 Tobacco smoking stat [facility] Current every day smoker [facility] Work Phone: Start: 09-25-2019 Alcohol Comment 2xweek [facility] Work Phone: Clinical Notes 09-23-2019 to 10-30-2021 InstructionsAttachments Note Date & Type Note Facility 10-30-2021 Note HNO ID: [id number] Author: Ana Bill APRN.FLYING II INSTRUCTOR Service: Plastic Surgery Author Type: Nurse Practitioner [...] alveolar process of maxilla, initial encounter ([facility]) (W19.XXXA) Fall, initial encounter 56 y/o M [...] from plastic surgery standpoint SIGNATURE: Ana Bill APRN.FLYING II INSTRUCTOR [facility] Date of Service: October 30, 2021 [facility] 10-30-2021 Note HNO ID: [id number] Author: Patrick Spangler PA-C Service: General Surgery Author Type: Physician Energy Sales Consultant Type: Progress Notes Filed: 10/30/2021 8:37 AM Note Text: Trauma Surgery Progress Note SERVICE DATE: 10/30/2021 Trauma Service Pager: For questions or concerns Mon-Fri 6a-5p please page [phone]. After 5pm and on Weekends and Holidays, please page [phone] if in ICU or [phone] if on RNF. SUBJECTIVE: Patient is POD [...] - 10/30/2159 10/30/21699 - 10/31/21 0659 Shift 7781-1637 7284-6119 6366-3035 24 Hour Total 2449-2617 2678-1883 5929-2605 24 Hour Total INTAKE PO 200 200 PO 200 200 IV 900 900 Volume (mL) (lactated ringers iv infusion) 500 500 Volume (mL) (lactated ringers iv infusion) 400 400 Shift Total 728 995 5358 OUTPUT Urine Urine Not Saved. 1 x [...] bone (HCC) 10/25/2021 - Substance abuse ([facility]) 10/25/2021 56 year old male s/p unwitnessed [...] homeless 3. Plan is to DC to [facility] in [place] 4. Syncopal episodes 1. Cardiology consulted 2. [...] managem (more content not included)... [facility] 10-29-2021 Note HNO ID: [id number] Author: Patrick Spangler PA-C Service: General Surgery Author Type: Physician Energy Sales Consultant Type: Progress Notes Filed: 10/29/2021 10:59 AM Note Text: Trauma Surgery Progress Note SERVICE DATE: 10/29/2021 Trauma Service Pager: For questions or concerns Mon-Fri 6a-5p please page [phone]. After 5pm and on Weekends and Holidays, please page [phone] if in ICU or [phone] if on RNF. SUBJECTIVE: Patient seen post [...] 0659 10/29/21 07 - 10/30/21 0659 Shift 2610-5307 8722-8322 7844-6927 24 Hour Total 7713-7072 1121-4306 6637-8380 24 Hour Total INTAKE PO 480 480 [...] muc (more content not included)... [facility] 10-28-2021 Note HNO ID: [id number] Author: Celestine Douglass PA-C Service: General Surgery Author Type: Physician Energy Sales Consultant Type: Progress Notes Filed: 10/28/2021 8:25 AM Note Text: Trauma Surgery Progress Note SERVICE DATE: 10/28/2021 Trauma Service Pager: For questions or concerns Mon-Fri 6a-5p please page [phone]. After 5pm and on Weekends and Holidays, please page [phone] if in ICU or [phone] if on RNF. SUBJECTIVE: NAEON. Patient sitting [...] 0659 10/28/21 07 - 10/29/21 0659 Shift 4064-1653 8755-0261 5776-1749 24 Hour Total 9268-1356 5795-8635 2558-9035 24 Hour Total INTAKE PO 480 120 [...] relevant (more content not included)... [facility] 10-27-2021 Note HNO ID: [id number] Author: Celestine Douglass PA-C Service: General Surgery Author Type: Physician Energy Sales Consultant Type: Progress Notes Filed: 10/27/2021 9:13 AM Note Text: Trauma Surgery Progress Note SERVICE DATE: 10/27/2021 Trauma Service Pager: For questions or concerns Mon-Fri 6a-5p please page [phone]. After 5pm and on Weekends and Holidays, please page [phone] if in ICU or [phone] if on RNF. SUBJECTIVE: NAEON. Pain generally [...] 10/27/21 0659 10/27/21699 - 10/28/21 0659 Shift 0519-4882 4816-6667 9532-0112 24 Hour Total 6683-4376 3727-4317 9491-9139 24 Hour Total INTAKE PO 460 240 [...] All (more content not included)... [facility] 10-26-2021 Note HNO ID: [id number] Author: Celestine Douglass PA-C Service: General Surgery Author Type: Physician Energy Sales Consultant Type: Progress Notes Filed: 10/26/2021 8:28 AM Note Text: Trauma Surgery Progress Note SERVICE DATE: 10/26/2021 Trauma Service Pager: For questions or concerns Mon-Fri 6a-5p please page [phone]. After 5pm and on Weekends and Holidays, please page [phone] if in ICU or [phone] if on RNF. SUBJECTIVE: NAEON. Patient sleeping [...] 0659 10/26/21 07 - 10/27/21 0659 Shift 4704-5446 9348-9615 4986-8203 24 Hour Total 6181-9937 1340-2703 0742-6049 24 Hour Total INTAKE PO 0438 436 8125 PO 7434 043 7479 Shift Total 9569 645 9261 OUTPUT Urine 1200 1200 Void (ml) 1200 [...] Ser (more content not included)... 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 No 6. CAGE Screening? No 7. If [...] consulted due to patient being transported to [facility] following a fall. Patient reports that [...] 25, 2021 TIME: 7:26 PM PAGER/CONTACT #: [phone] [facility] 10-25-2021 Note HNO ID: [id number] Author: ELVIS Muñoz Service: Care Management Author Type: Concrete Block Mason Type: Care Mgt Initial Assessment Filed: 10/25/2021 7:26 PM Note Text: CARE MANAGEMENT: ASSESSMENT AND DISCHARGE PLAN SERVICE DATE: October 25, 2021 SERVICE TIME: 7:22 PM PRIMARY CARE PHYSICIAN: No primary care provider on file. Phone: None ADMISSION STATUS: Inpatient Needs Prior to Discharge: To Be Determined MEDICAL: [facility] MEDICAID Patient/Surgical Assistant Stated Goals: To have reduction in symptoms Health Insurance: [facility] Health Issues Impacting Discharge Plan: Newly diagnosed Newly Diagnosed: Fall Last Discharge Date: N/A Is this Within the Past 30 days? Last discharge within 30 days: No Advance Directive: Current Advance Directive: None Environmental Protection Inspector Attempted to Assist with AD Completion: Yes [...] None Has the Patient Been in a Penitentiary Facility in the Past 30 days?: No [...] Completely I feel financially burdened by my [id number] expenses for my prescription medication:: 0 - Disagree Completely Risk Score: 0 Patient is categorized as: Low risk < 2 Are you interested in bedside delivery of your medications? No Is Patient Psychosocially Complex?: No ASSESSMENT AND PLAN: Medical Needs: Medical Needs: Fall risk or frequent falls Psychosocial Needs: Psychosocial Needs: None FREEDOM OF CHOICE EXPLAINED: [place] of Choice Given: No Reason Not Given: No placements necessary POTENTIAL TRANSITION PLANS Home Sw was transported to [facility] following a call. Patient reports that [...] the hallway following discharge. [facility] he stated that he is been sleeping in a hallway in [place] and plans to return there. Patient declined [facility] or housing resources. SW will continue to follow clinical course SIGNATURE: ELVIS Muñoz PATIENT NAME: Atif Faust DATE: October 25, 2021 TIME: 7:22 PM PAGER/CONTACT #: [phone] [facility] 10-25-2021 Note HNO ID: [id number] Author: Gely Clarke PA-C Service: Neurosurgery Author Type: Physician Energy Sales Consultant Type: Plan of Care Filed: 10/25/2021 1:56 [...] follow up needed Jazmyn Clarke PA-C Pager [phone] [facility] 09-23-2019 Hospital Discharge instructions Livier Quick APRN - CNP - 09/23/2019 You have been given a prescription for Naprosyn. Please take it morning and night. You have been given contact information to the [facility] Center that is here at [facility] so you can establish primary care. The following attachments cannot be sent through Care Everywhere.Hand Pain ([place])documented in this encounter [facility] Work Phone: documented in this encounter [facility] Work Phone: Evaluation note* Diagnosis Depression with suicidal ideation- Primary documented in this encounter [facility] Work Phone: Hospital Discharge instructions* Attachments The following attachments cannot be sent through Care Everywhere. * Depression: [facility] Summary [...] DATE CREATED AUTHOR AUTHOR'S ORGANIZ ATION 05/06/2020 [facility] DATE CREATED AUTHOR AUTHOR'S ORGANIZ ATION 11/03/2021 [facility] DATE CREATED AUTHOR AUTHOR'S ORGANIZ ATION 11/18/2021 [facility] Reason for Visit (unrecogniz ed [...] BE BASED ON THE PRIMARY CLINICAL RECORDS. [employer] provides no warranty or guarantee of the accuracy or completeness of information in this document.
--- NOTE | 2023-09-17 01:37 | EDS_ITS ---
HPI History of Present Illness Chief Complaint: Weakness Detail of Chief Complaint: Homeless male. Informant: patient Onset/Context/Timing Onset: Today Narrative Narrative: 58-year-old homeless male loosening of his medical history was seen emergency room and earlier today had negative workup at that time. [place] Please found him at the squad bring him up here. I discussed with the patient is really just looking for a place to sleep. He has no new complaints. I reviewed his workup from earlier today that was unremarkable. He is got really no new complaints and a normal physical exam related to sleep. Discharged in the morning. Prior similar symptoms: No Recent Illness/Hospitalization: No PFSH PFSH Medical History no medical history no medical history Home Medications divalproex 500 mg tablet,delayed release (Depakote) 500 mg PO BID #60 tabs 02/27 01/18 [Rx Last Taken Unknown] Allergy/AdvReac Type Severity Reaction Status Date / Time No Known Allergies Allergy Verified 09/17/23 01:10 Social History household members: none housing: homeless Smoking Status: Current every day smoker tobacco type: cigarettes alcohol intake: current alcohol intake frequency: a few times a month ROS ROS ED ROS Narrative Denies recent illness. Review of Systems ROS Unobtainable: Denies due to encephalopathy Constitutional Constitutional ED: Denies chills or fever(s) Eyes Eyes: Denies blurry vision ENT ENT ED: Denies ear pain Cardiovascular Cardiovascular: Denies chest pain Respiratory/Chest Respiratory/Chest: Denies cough or dyspnea Gastrointestinal Gastrointestinal: Denies abdominal pain Genitourinary Genitourinary ED: Denies dysuria or hematuria Musculoskeletal Musculoskeletal: Denies arthralgias Integumentary Denies abscess or Abrasions Neurologic Neurologic: Denies headache(s) Psychiatric Psychiatric: Denies anxiety or depression Endocrine Endocrinology: Denies cold intolerance Hematologic/Lymphatic Hematologic/Lymphatic: Reports none Allergic/Immunologic Allergic/Immunologic ED: Denies mouth swelling, tongue swelling or urticaria EXAM Physical Exam Narrative Exam Narrative: Well-appearing 58-year-old male. Vital signs stable afebrile. Pulse ox 99% room air no hypoxia. HEENT exam unremarkable. Neck nontender no lymphadenopathy. Lungs clear to auscultation bilaterally. Heart regular rhythm rate about 70 no murmur. Chest wall and ribs nontender. Abdomen soft nontender. Nondistended normal bowel sounds no peritoneal signs. Moving all 4 extremities. Calves are nontender without edema. Back nontender. Neurologically is awake and alert. Answering questions following commands. No focal motor deficits. Benign exam. Const Vital Signs: 09/17/23 01:05 Temperature 97.9 F Temperature Source Temporal Pulse Rate 69 Respiratory Rate 27 H Blood Pressure 136/75 H Blood Pressure Mean 95 Pulse Ox 99 Oxygen Delivery Method Room Air Positive well nourished and well developed; Negative for obese, cachectic, contr actures or unkempt General Appearance ED: well developed and NAD; Negative for unkempt, cachectic, contractures, cyanotic, diaphoretic or pallor Nutritional Appearance: Negative for cachectic or obese HEENT Reports moist mucous membranes; Denies dry mucous membranes Negative for trauma or tenderness Mouth ED: No dry mucous membranes Mouth: No dry mucous membranes Eyes PERRL and EOMs intact bilaterally General Eye ED: Negative for pale conjunctiva or scleral icterus Neck no lymphadenopathy, supple and no JVD General: Negative for tenderness Lymph Lymphatic: Negative for other Chest Wall inspection of chest normal and palpation of chest normal Resp normal respiratory effort and clear to auscultation bilaterally Effort and Inspection: Negative for retractions Auscultation: Negative for rales, rhonchi or wheezes Cardio regular rate, regular rhythm, S1 normal heart sound, S2 normal heart sound and no murmurs Palpation: Negative for palpable S3 or palpable S4 Rate: Negative for bradycardia, tachycardic or other Rhythm: Negative for abnormal rhythm GI normal to inspection, nondistended, normoactive bowel sounds, non-tender, non- distended and no masses Inspection: Negative for abdominal distention Auscultation: normoactive bowel sounds Palpation: soft; Negative for tender or guarding Bladder / Kidney Exam: No other Back/Spine no CVA tenderness General Back: Negative for CVA tenderness Cervical Spine: Negative for cervical spine tenderness Thoracic Spine / Upper Back: Negative for thoracic spinal tenderness or paraspinal muscle tenderness Lumbar Spine / Lower Back: Negative for lumbar spinal tenderness Extremity normal to inspection General Extremety ED: Negative for edema or tenderness General Extremity: Negative for edema Neuro oriented x3 and CN's II-XII intact bilaterally Sensorium / Orientation: alert; Negative for orientation impaired, lethargic or stuporous Motor Exam: strength 5/5 throughout; Negative for general weakness or strength abnormal Psych mental status grossly normal Appearance: Negative for unkempt Attitude: No agitated Mood & Affect: Negative for depressed, anxious or tearful Skin no rashes or lesions noted and no wounds General Skin Exam: Negative for jaundice or pallor Lesions: No lesion noted Rashes: No rashes noted Trauma: Negative for abrasion Wounds: Negative for wounds noted MDM MDM MDM Narrative Medical decision making narrative: 58-year-old male seen earlier tonight had unremarkable labs. Chest x-ray. He will be allowed to sleep and then discharged home. He told that he needs any additional workup he has no complaints. Exam benign. [place] needs any additional labs I reviewed once from earlier today. Repeat exam patient is doing well at 6:53 AM. He is rested in the emergency department all night. He will be discharged between 7 and 8. Discharge Plan Triage Chief Complaint: Weakness ED Provider: [facility] Steele Dx/Rx/DC Orders Clinical Impression: History of marijuana use, Homeless, History of alcohol abuse Prescriptions: No Action divalproex [Depakote] 500 mg tablet,delayed release (DR/EC) 500 mg PO BID Qty: 60 0RF Primary Care Provider: Yosi Peralta Referrals: Yosi Peralta MD [Primary Care Provider] - As Needed Activity Restrictions/Additional Instructions: Follow-up with local shoulders. Disposition Disposition: Home, Self Care Discharge Date/Time: 09/17/23 03:15
--- NOTE | 2023-09-17 03:14 | ED.RN ---
Pt told nurses to throw his hat in the garbage because he didn't feel like picking it up.
== END 2023-09-17 03:15 | disposition home or self-care (01) ==
PROVIDERS: Emergency Provider Emergency Medicine; PCP Family Medicine; Visit Provider Emergency Medicine
DX: R53.1 Weakness (principal); F17.200 Nicotine dependence, unspecified, uncomplicated; Z59.02 Unsheltered homelessness
CPT/HCPCS: 99282

== ENCOUNTER 2023-09-19 23:19 | Emergency (ER) | payer MEDICAID, SELFPAY ==
[2023-09-19 23:19] VITALS: BP 105/69; PULSE 94; RESP 16; TEMP 36.3; O2SAT 99; BMI 21.1
--- NOTE | 2023-09-19 23:43 | ED.RN ---
Doctor evaluated no sitter need.
--- OUTSIDE RECORDS SUMMARY | 2023-09-19 23:49 | XMS RPT_ITS | CCD ---
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 Name Role Phone Unavailable Primary Care Provider [...] 97.5 [degF] Stuart Queen MD Work Phone: [facility] Work Phone: 09-25-2019 14:00-0500 Diastolic blood pressure [...] Phone: 09-23-2019 15:51-0500 Body height 170.2 cm [facility] Work Phone: 09-23-2019 15:51-0500 Body temperature 99.1 [degF] [facility] Work Phone: 09-23-2019 15:51-0500 Diastolic blood pressure 92 mm[Hg] [facility] Work Phone: 09-23-2019 15:51-0500 Heart rate 98 /min [facility] Work Phone: 09-23-2019 15:51-0500 Respiratory rate 18 /min [facility] Work Phone: 09-23-2019 15:51-0500 SaO2% (BldA) [Mass fraction] 99 % [facility] Work Phone: 09-23-2019 15:51-0500 Systolic blood pressure 124 mm[Hg] [facility] Work Phone: Encounters Encounter Date Encounter Type Care Provider Facility Start: 09-25-2019 End: 09-25-2019 Emergency department patient visit Stuart Queen MD Work Phone: [facility] Procedures Date Procedure Procedure Detail Performing Clinician Start: 10-24-2021 Antibody screen Plan of Treatment Date Care Activity Detail Author Start: 04-29-2019 Influenza vaccination Flu vaccine (# 1) [facility] Work Phone: Social History Date Type Detail Facility Start: 09-23-2019 Tobacco smoking stat [facility] Light tobacco smoker [facility] Work Phone: History of tobacco use Cigarette Smoker [facility] Start: 09-23-2019 End: 09-25-2019 Alcohol intake Current drinker of alcohol (finding) [facility] Work Phone: Start: 09-23-2019 Tobacco Comment 3-4/day [facility] Work Phone: Start: 09-23-2019 Alcohol Comment As much as I can ge t [facility] Work Phone: Sex Assigned At Not on file [facility] Work Phone: Start: 09-25-2019 Tobacco smoking stat [facility] Current every day smoker [facility] Work Phone: Start: 09-25-2019 Alcohol Comment 2xweek [facility] Work Phone: Clinical Notes 09-23-2019 to 10-30-2021 InstructionsAttachments Note Date & Type Note Facility 10-30-2021 Note HNO ID: [id number] Author: Ana Bill APRN.VB NET DEVELOPER Service: Plastic Surgery Author Type: Nurse Practitioner [...] of alveolar process of maxilla, initial encounter ([facility]) (W19.XXXA) Fall, initial encounter 56 y/o M [...] from plastic surgery standpoint SIGNATURE: Ana Bill APRN.VB NET DEVELOPER [facility] Date of Service: October 30, 2021 [facility] 10-30-2021 Note HNO ID: [id number] Author: Patrick Spangler PA-C Service: General Surgery Author Type: Physician Flight Communications Operator Type: Progress Notes Filed: 10/30/2021 8:37 AM Note Text: Trauma Surgery Progress Note SERVICE DATE: 10/30/2021 Trauma Service Pager: For questions or concerns Mon-Fri 6a-5p please page [phone]. After 5pm and on Weekends and Holidays, please page [phone] if in ICU or [phone] if on RNF. SUBJECTIVE: Patient is POD [...] - 10/30/2159 10/30/21699 - 10/31/21 0659 Shift 4147-4803 3757-7999 1867-0495 24 Hour Total 4063-7291 4380-2929 6810-1292 24 Hour Total INTAKE PO 200 200 PO 200 200 IV 900 900 Volume (mL) (lactated ringers iv infusion) 500 500 Volume (mL) (lactated ringers iv infusion) 400 400 Shift Total 824 609 6573 OUTPUT Urine Urine Not Saved. 1 x [...] facial bone (HCC) 10/25/2021 - Substance abuse ([facility]) 10/25/2021 56 year old male s/p unwitnessed [...] homeless 3. Plan is to DC to [facility] in [place] 4. Syncopal episodes 1. Cardiology consulted 2. [...] home. Case managem (more content not included)... [facility] 10-29-2021 Note HNO ID: [id number] Author: Patrick Spangler PA-C Service: General Surgery Author Type: Physician Flight Communications Operator Type: Progress Notes Filed: 10/29/2021 10:59 AM Note Text: Trauma Surgery Progress Note SERVICE DATE: 10/29/2021 Trauma Service Pager: For questions or concerns Mon-Fri 6a-5p please page [phone]. After 5pm and on Weekends and Holidays, please page [phone] if in ICU or [phone] if on RNF. SUBJECTIVE: Patient seen post [...] 0659 10/29/21 07 - 10/30/21 0659 Shift 5066-3146 0504-1247 8091-4276 24 Hour Total 8906-9538 7506-6212 2149-2408 24 Hour Total INTAKE PO 480 480 [...] paranasal sinus muc (more content not included)... [facility] 10-28-2021 Note HNO ID: [id number] Author: Celestine Dogulass PA-C Service: General Surgery Author Type: Physician Flight Communications Operator Type: Progress Notes Filed: 10/28/2021 8:25 AM Note Text: Trauma Surgery Progress Note SERVICE DATE: 10/28/2021 Trauma Service Pager: For questions or concerns Mon-Fri 6a-5p please page [phone]. After 5pm and on Weekends and Holidays, please page [phone] if in ICU or [phone] if on RNF. SUBJECTIVE: NAEON. Patient sitting [...] 0659 10/28/21 07 - 10/29/21 0659 Shift 4499-0137 9859-5640 8356-1940 24 Hour Total 8917-0489 2968-4578 2160-5311 24 Hour Total INTAKE PO 480 120 [...] copied. All relevant (more content not included)... [facility] 10-27-2021 Note HNO ID: [id number] Author: Celestine Douglass PA-C Service: General Surgery Author Type: Physician Flight Communications Operator Type: Progress Notes Filed: 10/27/2021 9:13 AM Note Text: Trauma Surgery Progress Note SERVICE DATE: 10/27/2021 Trauma Service Pager: For questions or concerns Mon-Fri 6a-5p please page [phone]. After 5pm and on Weekends and Holidays, please page [phone] if in ICU or [phone] if on RNF. SUBJECTIVE: NAEON. Pain generally [...] 10/27/21 0659 10/27/21699 - 10/28/21 0659 Shift 5197-8415 5398-4401 7890-6716 24 Hour Total 9734-1319 5391-3380 2642-0778 24 Hour Total INTAKE PO 460 240 [...] were copied. All (more content not included)... [facility] 10-26-2021 Note HNO ID: [id number] Author: Celestine Douglass PA-C Service: General Surgery Author Type: Physician Flight Communications Operator Type: Progress Notes Filed: 10/26/2021 8:28 AM Note Text: Trauma Surgery Progress Note SERVICE DATE: 10/26/2021 Trauma Service Pager: For questions or concerns Mon-Fri 6a-5p please page [phone]. After 5pm and on Weekends and Holidays, please page [phone] if in ICU or [phone] if on RNF. SUBJECTIVE: NAEON. Patient sleeping [...] 0659 10/26/21 07 - 10/27/21 0659 Shift 6274-7757 1129-4260 3470-1750 24 Hour Total 8370-8139 8693-9787 2147-0301 24 Hour Total INTAKE PO 0619 182 7039 PO 7306 286 0255 Shift Total 6802 101 9305 OUTPUT Urine 1200 1200 Void (ml) 1200 [...] TBD Staff Trauma Surgeon: Dr. Connor SIGNATURE: Celestien Douglass PA-C PATIENT NAME: Atif Faust DATE: 10/26/2021 TIME: 8:12 AM Pager: see below Trauma Ser (more content not included)... [facility] 10-25-2021 Note HNO ID: [id number] Author: ELVIS Muñoz Service: Care Management Author Type: Associate Project Manager Type: Care Mgt Progress Note Filed: 10/25/2021 [...] or get rid of a hangover (eye second mate)? No 6. CAGE Screening? No 7. If [...] consulted due to patient being transported to [facility] following a fall. Patient reports that he [...] 25, 2021 TIME: 7:26 PM PAGER/CONTACT #: [phone] [facility] 10-25-2021 Note HNO ID: [id number] Author: ELVIS Muñoz Service: Care Management Author Type: Associate Project Manager Type: Care Mgt Initial Assessment Filed: 10/25/2021 7:26 PM Note Text: CARE MANAGEMENT: ASSESSMENT AND DISCHARGE PLAN SERVICE DATE: October 25, 2021 SERVICE TIME: 7:22 PM PRIMARY CARE PHYSICIAN: No primary care provider on file. 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 Health Issues Impacting Discharge Plan: Newly diagnosed Newly Diagnosed: Fall Last Discharge Date: N/A Is this Within the Past 30 days? Last discharge within 30 days: No Advance Directive: Current Advance Directive: None Dairy Products Maker Attempted to Assist with AD Completion: Yes [...] None Has the Patient Been in a Jail Facility in the Past 30 days?: No [...] Completely I feel financially burdened by my [id number] expenses for my prescription medication:: 0 - Disagree Completely Risk Score: 0 Patient is categorized as: Low risk < 2 Are you interested in bedside delivery of your medications? No Is Patient Psychosocially Complex?: No ASSESSMENT AND PLAN: Medical Needs: Medical Needs: Fall risk or frequent falls Psychosocial Needs: Psychosocial Needs: None FREEDOM OF CHOICE EXPLAINED: [place] of Choice Given: No Reason Not Given: No placements necessary POTENTIAL TRANSITION PLANS Home Sw was transported to [facility] following a call. Patient reports that he [...] the hallway following discharge. [facility] he stated that he is been sleeping in a hallway in [place] and plans to return there. Patient declined senior living or housing resources. SW will continue to follow clinical course SIGNATURE: ELVIS Muñoz PATIENT NAME: Atif Faust DATE: October 25, 2021 TIME: 7:22 PM PAGER/CONTACT #: [phone] [facility] 10-25-2021 Note HNO ID: [id number] Author: Gely Clarke PA-C Service: Neurosurgery Author Type: Physician Flight Communications Operator Type: Plan of Care Filed: 10/25/2021 1:56 [...] follow up needed Jazmyn Clarke PA-C Pager [phone] [facility] 09-23-2019 Hospital Discharge instructions Livier Quick APRN - CNP - 09/23/2019 You have been given a prescription for Naprosyn. Please take it morning and night. You have been given contact information to the [facility] Center that is here at [facility] so you can establish primary care. The following attachments cannot be sent through Care Everywhere.Hand Pain (Portuguese)documented in this encounter [facility] Work Phone: documented in this encounter [facility] Work Phone: Evaluation note* Diagnosis Depression with suicidal ideation- Primary documented in this encounter [facility] Work Phone: Hospital Discharge instructions* Attachments The following attachments cannot be sent through Care Everywhere. * Depression: [facility] (Portuguese) [facility] Summary [...] DATE CREATED AUTHOR AUTHOR'S ORGANIZ ATION 05/06/2020 [facility] DATE CREATED AUTHOR AUTHOR'S ORGANIZ ATION 11/03/2021 [facility] DATE CREATED AUTHOR AUTHOR'S ORGANIZ ATION 11/18/2021 [facility] Reason for Visit (unrecogniz ed [...] BE BASED ON THE PRIMARY CLINICAL RECORDS. [employer] provides no warranty or guarantee of the accuracy or completeness of information in this document.
--- NOTE | 2023-09-19 23:54 | EDS_ITS ---
HPI History of Present Illness Chief Complaint: Suicidal Informant: patient Narrative Narrative: Patient is a 58-year-old male who presents ER complaining of being suicidal. He states that this started roughly 2 hours ago. He reports that the precipitating factor was the fact that he is cold outside and he has no place to go . He states he was recently evaluated at [facility] and released last Tuesday secondary to suicidal ideation as well. He reports that his plan is to cut his wrist . He denies any alcohol or drug use today [facility] Home Medications divalproex 500 mg tablet,delayed release (Depakote) 500 mg PO BID #60 tabs 03/22/23 [Rx Last Taken Unknown] Allergy/AdvReac Type Severity Reaction Status Date / Time No Known Allergies Allergy Verified 09/17/23 01:10 Social History household members: none housing: homeless Smoking Status: Current every day smoker tobacco type: cigarettes alcohol intake: current alcohol intake frequency: a few times a month ROS ROS ED Constitutional Constitutional ED: Denies chills or fever(s) ENT ENT ED: Denies sore throat Cardiovascular Cardiovascular: Denies chest pain Respiratory/Chest Respiratory/Chest: Denies cough or dyspnea Gastrointestinal Gastrointestinal: Denies abdominal pain, diarrhea, nausea or vomiting Genitourinary Genitourinary ED: Denies dysuria Musculoskeletal Musculoskeletal: Denies myalgias Integumentary Denies rash Neurologic Neurologic: Denies headache(s) Psychiatric Psychiatric: Reports suicidal ideation and suicidal thoughts Hematologic/Lymphatic Hematologic/Lymphatic: Denies easy bleeding or easy bruising EXAM Physical Exam Const Vital Signs: 09/19/23 23:19 Temperature 97.4 F L Temperature Source Temporal Pulse Rate 94 Respiratory Rate 16 Blood Pressure 105/69 Blood Pressure Mean 81 Pulse Ox 99 Oxygen Delivery Method Room Air Positive well nourished and well developed General Appearance ED: well developed HEENT HEENT Narrative: Normocephalic atraumatic Eyes PERRL and EOMs intact bilaterally General Eye ED: Negative for scleral icterus Neck supple Neck Narrative: No nuchal rigidity or meningeal signs Chest Wall palpation of chest normal Resp normal respiratory effort and clear to auscultation bilaterally Cardio regular rate and regular rhythm Rate: other Other Details: Heart is regular rate and rhythm without murmurs rubs or gallops GI normal to inspection, nondistended, normoactive bowel sounds, non-tender, non- distended and no masses GI Narrative: No voluntary guarding or rigidity or pulsatile mass Auscultation: normoactive bowel sounds Palpation: soft Extremity normal to inspection Neuro oriented x3 and CN's II-XII intact bilaterally Sensorium / Orientation: alert Psych Psych Narrative: Patient has a flat affect Skin no rashes or lesions noted MDM MDM MDM Narrative Medical decision making narrative: Patient presented to the ER with stable vitals. He reported that the reason for feeling suicidal was that it was cold outside and he had no place to go. This indicates this is most likely a malingering or secondary gain event. Still as he reports that he has thoughts of harming himself I did elect to perform a psychiatric evaluation. Lab work revealed no clinically significant findings. Crisis center was contacted as he was medically cleared and they evaluated the patient. They agree that he is not meet criteria for inpatient treatment and therefore he will be discharged and can follow-up on an outpatient basis History & Record Review Discussion w/independent historian: Patient Lab Data Attestation: I reviewed the patient's lab results. Labs: Laboratory Results - last 24 hr 09/20/23 09/20/23 00:06 00:10 WBC 5.5 RBC 3.79 L Hgb 11.8 L Hct 35.7 L MCV 94.2 H MCH 31.1 MCHC 33.1 RDW Std Deviation 50.5 H RDW Coeff of Jani 14.6 Plt Count TNP MPV 12.6 H Immature Gran % (Auto) 0.200 Neut % (Auto) 82.6 H Lymph % (Auto) 11.1 L Rice % (Auto) 5.5 Eos % (Auto) 0.2 Baso % (Auto) 0.4 Absolute Neuts (auto) 4.6 Absolute Lymphs (auto) 0.61 L Nucleated RBC % 0 Platelet Estimate ADEQUATE Sodium 140 Potassium 4.1 Chloride 108 H Carbon Dioxide 28.0 Anion Gap 4 L BUN 12 Creatinine 0.98 Estim Creat Clear Calc 70.30 Est GFR (MDRD) Af Amer 100 Est GFR (MDRD) Non-Af 83 BUN/Creatinine Ratio 12.2 Glucose 107 H Calcium 9.0 Urine Opiates Screen NEGATIVE Urine Methadone Screen NEGATIVE Ur Barbiturates Screen NEGATIVE Ur Phencyclidine Scrn NEGATIVE Ur Amphetamines Screen NEGATIVE MDMA (Ecstasy) Screen NEGATIVE U Benzodiazepines Scrn NEGATIVE Urine Cocaine Screen NEGATIVE U Cannabinoids Screen POSITIVE H Ur Drug Screen Comment Ethyl Alcohol < 3.0 Management Discussion w/another healthcare provider: Behavioral health Discharge Plan Triage Chief Complaint: Suicidal ED Provider: Marquez Cai Dx/Rx/DC Orders Clinical Impression: Mood disorder, Homeless, Tobacco use Instructions: CONTRACT, No Harm Prescriptions: No Action divalproex [Depakote] 500 mg tablet,delayed release (DR/EC) 500 mg PO BID Qty: 60 0RF Primary Care Provider: Yosi Peralta Referrals: Yosi Peralta MD [Primary Care Provider] - Disposition Disposition: Home, Self Care
[2023-09-20 00:33] LABS: Alcohol, Blood (Medical)-Serum < 3.0 mg/dL
[2023-09-20 00:35] LABS: Anion Gap 4 (5-15); BUN 12 mg/dL (7-18); BUN/Creat Ratio 12.2 RATIO (10-20); Chloride 108 mmol/L (98-107); Creatinine, Serum 0.98 mg/dL (0.70-1.30); EST Glomerular Filtration Rate 83 mL/min (>60); Est Glom Filt Rate - Afr Amer 100 mL/min (>60); Glucose 107 mg/dL (74-106); Potassium 4.1 mmol/L (3.5-5.1); Sodium Level 140 mmol/L (136-145)
[2023-09-20 00:46] LABS: Amphetamine Urine VISTA NEGATIVE (<1000 ng/mL); Barbiturate Urine VISTA NEGATIVE (< 200 ng/mL); Benzodiazepine Urine VISTA NEGATIVE (< 200 ng/mL); Cocaine Urine VISTA NEGATIVE (< 300 ng/mL); Ecstacy Urine VISTA NEGATIVE (< 500 ng/mL); Methadone Urine VISTA NEGATIVE (< 300 ng/mL); PCP Urine VISTA NEGATIVE (< 25 ng/mL); THC Urine VISTA POSITIVE (< 50 ng/mL); Vista UDS pH Range 7
[2023-09-20 00:51] LABS: Absolute Lymphocyte Count 0.61 X10^3/uL (0.83-4.51); Absolute Neutrophil Count 4.6 X10^3/uL (2.0-7.7); Basophil# 0.02 X10^3/uL; Basophil% 0.4 % (0-1); Eosinophil# 0.01 X10^3/uL; Eosinophils% 0.2 % (0-5); Hematocrit 35.7 % (40-54); Hemoglobin 11.8 g/dL (13.0-16.5); Lymphocyte # 0.61 X10^3/ul (0.83-4.51); Lymphocyte % 11.1 % (19-41); Mean Corp Hgb Conc 33.1 g/dL (32-36); Mean Corpuscular Hgb 31.1 pg (27.0-32.0); Mean Corpuscular Volume 94.2 fL (80-94); Mean Platelet Vol. 12.6 fl (6.2-12.0); Monocyte% 5.5 % (0-10); NRBC Flagged by Analyzer 0 % (0-5); Neutrophil # 4.55 X10^3/uL (2.7-7.7); Neutrophil % 82.6 % (47-70); POSITIVE COUNT YES; RBC Distribution Width CV 14.6 % (11.6-14.6); RBC Distribution Width SD 50.5 fl (35.1-43.9); Red Blood Count 3.79 M/mm3 (4.6-6.2); White Blood Count 5.5 K/mm3 (4.4-11.0)
[2023-09-20 00:52] LABS: Differential Indicated SCAN CRITERIA MET
[2023-09-20 01:18] LABS: Platelet Estimate ADEQUATE (ADEQ)
[2023-09-20 02:00] VITALS: BP 121/76; PULSE 81; RESP 16; O2SAT 99
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
== END 2023-09-20 02:05 | disposition home or self-care (01) ==
PROVIDERS: Emergency Provider Emergency Medicine; PCP Family Medicine; Visit Provider Emergency Medicine
DX: F39 Unspecified mood [affective] disorder (principal); Z59.00 Homelessness unspecified; F17.210 Nicotine dependence, cigarettes, uncomplicated
CPT/HCPCS: 80048; 80307; 80320; 85025; 87635; 99283; G0480

== ENCOUNTER 2024-04-21 07:35 | Emergency (ER) | payer MEDICAID, SELFPAY ==
[2024-04-21 07:36] VITALS: BP 118/77; PULSE 105; RESP 18; TEMP 35.9; O2SAT 100; BMI 20.9
--- NOTE | 2024-04-21 07:48 | EDS_ITS ---
HPI History of Present Illness Chief Complaint: Wound Check Narrative Narrative: 58-year-old male presents with the tip of his tongue bleeding since yesterday. States he has had oral bleeding in the past on and off over the last 3 years. This episode started yesterday. He states it was not bleeding. He does not take any blood thinners, and denies other bleeding diathesis. PFSH PFS Medical History History of hemorrhage of tongue Home Medications ?Medication ?Instructions ?Recorded ?Last Taken ?Type NK 09/20/23 Unknown History Allergy/AdvReac Type Severity Reaction Status Date / Time No Known Allergies Allergy Verified 04/21/24 07:42 Social History household members: none housing: homeless Smoking Status: Current every day smoker tobacco type: cigarettes alcohol intake: current alcohol intake frequency: a few times a month ROS ROS ED ROS Narrative Constitutional: No fever, no chills. HEENT: No sore throat. No neck pain. No loss of vision. No rhinorrhea. Tip of tongue bleeding. Denies trauma. Denies other symptoms. EXAM Physical Exam Narrative Exam Narrative: Afebrile. Vital signs noted. Intermittent tachycardia. Lungs clear to auscultation bilaterally. Abdomen soft nontender with normal active bowel sounds. Inspection of the tip of the tongue shows the small 0.5 cm open wound with minimal active bleeding. No pulsatile bleeding. Airway patent. No drooling or trismus. Const Vital Signs: 04/21/24 07:36 Temperature 96.7 F L Temperature Source Temporal Pulse Rate 105 H Respiratory Rate 18 Blood Pressure 118/77 Blood Pressure Mean 90 Pulse Ox 100 Oxygen Delivery Method Room Air MDM MDM MDM Narrative Medical decision making narrative: I reviewed the patient's prior records. He has had this in the past. He did not have bleeding during 1 visit and he had a CT performed of the tongue which showed hypervascularity but no active process. I will check a CBC to check his hemoglobin, and make sure his platelet count is adequate. He states he has not followed up with otolaryngology. Direct pressure will be applied, and I will have RN have him apply Gelfoam with direct pressure. Repeat examination at 8:20 AM shows no active bleeding of his tip of his tongue. I reviewed his laboratory work and his hemoglobin is stable at 9.4 with normal platelet count of 344. At this point in time, he will be discharged and referred to otolaryngology. Return instructions reviewed. Disposition is discharged in stable condition. History & Record Review Discussion w/independent historian: Patient Additional record(s) reviewed:: Prior ED visit Lab Data Attestation: I reviewed the patient's lab results. Labs: Laboratory Results - last 24 hr 04/21/24 08:00 WBC 5.5 RBC 3.02 L Hgb 9.4 L Hct 28.6 L MCV 94.7 H MCH 31.1 MCHC 32.9 RDW Std Deviation 48.1 H RDW Coeff of Jani 14.1 Plt Count 344 MPV 12.2 H Immature Gran % (Auto) 0.200 Neut % (Auto) 62.0 Lymph % (Auto) 32.4 Nance % (Auto) 4.7 Eos % (Auto) 0.2 Baso % (Auto) 0.5 Absolute Neuts (auto) 3.4 Absolute Lymphs (auto) 1.78 Nucleated RBC % 0 Discharge Plan Triage Chief Complaint: Wound Check ED Provider: Jim Gilmore Dx/Rx/DC Orders Clinical Impression: Oral bleeding, Hemorrhage of tongue Instructions: Parts of the Mouth Prescriptions: No Action NK Primary Care Provider: Yosi Peralta Referrals: Yosi Peralta MD [Primary Care Provider] - Yunior Jones MD [Med Staff - Active Staff] - 1-2 Days if not improving Print Language: Lithuanian Disposition Disposition: Home, Self Care
[2024-04-21 08:09] LABS: Absolute Lymphocyte Count 1.78 X10^3/uL (0.83-4.51); Absolute Neutrophil Count 3.4 X10^3/uL (2.0-7.7); Basophil# 0.03 X10^3/uL; Basophil% 0.5 % (0-1); Eosinophil# 0.01 X10^3/uL; Eosinophils% 0.2 % (0-5); Hematocrit 28.6 % (40-54); Hemoglobin 9.4 g/dL (13.0-16.5); Lymphocyte # 1.78 X10^3/ul (0.83-4.51); Lymphocyte % 32.4 % (19-41); Mean Corp Hgb Conc 32.9 g/dL (32-36); Mean Corpuscular Hgb 31.1 pg (27.0-32.0); Mean Corpuscular Volume 94.7 fL (80-94); Mean Platelet Vol. 12.2 fl (6.2-12.0); Monocyte# 0.26 X10^3/uL; Monocyte% 4.7 % (0-10); NRBC Flagged by Analyzer 0 % (0-5); Neutrophil # 3.41 X10^3/uL (2.7-7.7); Platelet Count 344 K/mm3 (150-450); RBC Distribution Width CV 14.1 % (11.6-14.6); RBC Distribution Width SD 48.1 fl (35.1-43.9); Red Blood Count 3.02 M/mm3 (4.6-6.2); White Blood Count 5.5 K/mm3 (4.4-11.0)
[2024-04-21 08:29] VITALS: BP 113/78; PULSE 73; RESP 18; TEMP 36.7; O2SAT 100
== END 2024-04-21 08:31 | disposition home or self-care (01) ==
LOC: ED 08:31
PROVIDERS: Emergency Provider Emergency Medicine; PCP Family Medicine; Visit Provider Emergency Medicine
DX: K14.8 Other diseases of tongue (principal); Z59.00 Homelessness unspecified; F17.210 Nicotine dependence, cigarettes, uncomplicated
CPT/HCPCS: 85025; 99282; A4216

== ENCOUNTER 2024-05-11 02:31 | Emergency (ER) | payer MEDICAID, SELFPAY ==
[2024-05-11 02:31] VITALS: BP 141/94; PULSE 103; RESP 16; TEMP 36.6; O2SAT 95; BMI 20.9
--- NOTE | 2024-05-11 04:09 | EDS_ITS ---
HPI History of Present Illness Chief Complaint: Dental Informant: patient Narrative Narrative: Patient is a 58-year-old male with history of tobacco use presenting with 2 days of worsening left lower jaw pain and swelling. He does not currently have a dentist. Denies any associated drainage. Denies any fever or chills. Denies any nausea or vomiting. Is having a lot of pain of his lower jaw. Came in for further evaluation. [facility] Medical History History of hemorrhage of tongue Home Medications ?Medication ?Instructions ?Recorded ?Last Taken ?Type amoxicillin 875 mg-potassium 1 tab PO Q12H #20 tabs 05/11/24 Unknown Rx clavulanate 125 mg tablet ibuprofen 600 mg tablet 600 mg PO Q6H PRN PRN pain #20 05/11/24 Unknown Rx TABLETS Allergy/AdvReac Type Severity Reaction Status Date / Time No Known Allergies Allergy Verified 05/11/24 02:32 Social History household members: none housing: homeless Smoking Status: Current every day smoker tobacco type: cigarettes and e- cigarettes alcohol intake: current alcohol intake frequency: a few times a month ROS ROS ED Constitutional Constitutional ED: Denies chills or fever(s) ENT ENT ED: Reports other Details: left lower jaw swelling and dental pain Respiratory/Chest Respiratory/Chest: Denies dyspnea Gastrointestinal Gastrointestinal: Denies nausea or vomiting Integumentary Denies rash EXAM Physical Exam Const Vital Signs: 05/11/24 02:31 Temperature 98 F Temperature Source Oral Pulse Rate 103 H Respiratory Rate 16 Blood Pressure 141/94 H Blood Pressure Mean 109 Pulse Ox 95 Oxygen Delivery Method Room Air Positive well nourished and well developed Constitutional Narrative: patient sleeping soundly when I initially go into the room General Appearance ED: well developed and NAD HEENT HEENT Narrative: Normal tympanic membranes bilaterally. Some cerumen present but no impaction. Normal nose. No trismus appreciated. Patient has tenderness to palpation and gingival swelling of the left lower jaw that seems to be centered around the first molar. He has multiple caries and missing teeth. No obvious dental fracture present. There is tenderness to palpation at the left angle of the mandible and submandibular space. Normal oropharynx. Eyes PERRL and EOMs intact bilaterally Neck supple Chest Wall inspection of chest normal and palpation of chest normal Resp normal respiratory effort Cardio regular rate and regular rhythm Neuro oriented x3 Sensorium / Orientation: alert Motor Exam: Negative for general weakness Psych mental status grossly normal Skin no rashes or lesions noted MDM MDM MDM Narrative Medical decision making narrative: Patient is evaluated for increased left lower jaw pain and swelling. Patient has a dental infection and likely. Goal abscess. There is a significant mount of swelling of the gingiva and I suspect there is an associated abscess. Patient initially agreeable with a dental block and attempt at I&D. He will be started on Augmentin and given Motrin as well. When I went in to perform the dental block patient is now refusing. Patient counseled that he will have a lot of improvement of his pain and I suspect will get better faster if I&D can successfully be performed. He continues to decline. Patient be discharged home with prescription for Motrin as well as Augmentin. Given return precautions. Given dental referral sheet. Counseled on smoking cessation. Discharge Plan Triage Chief Complaint: Dental ED Provider: Whitney Abrams Dx/Rx/DC Orders Clinical Impression: Abscess, dental, Pain, dental Instructions: ED Dental Abscess Prescriptions: New amoxicillin-pot clavulanate 875-125 mg tablet 1 tab PO Q12H Qty: 20 0RF ibuprofen 600 mg tablet 600 mg PO Q6H PRN PRN (Reason: pain) Qty: 20 0RF Primary Care Provider: Yosi Peralta Referrals: Yosi Peralta MD [Primary Care Provider] - Activity Restrictions/Additional Instructions: Take LMX as prescribed. I am concerned you have an abscess that ultimately might require lancing (incision and drainage). Please return if you have wor sening your symptoms such as fever, difficulty swallowing or worsening face swelling. Please avoid smoking as this will make your dental problems worse. Print Language: Japanese Disposition Disposition: Home, Self Care
[2024-05-11] MEDS: Ibuprofen 600 MG Tablet PO (04:18)
[2024-05-11] MEDS: Amox/Clavulanate 875 MG Tablet PO (04:19)
[2024-05-11 05:22] VITALS: BP 112/71; PULSE 98; RESP 16; TEMP 36.7; O2SAT 99
== END 2024-05-11 05:24 | disposition home or self-care (01) ==
PROVIDERS: Emergency Provider Emergency Medicine; PCP Family Medicine; Visit Provider Emergency Medicine
DX: K04.7 Periapical abscess without sinus (principal); F17.210 Nicotine dependence, cigarettes, uncomplicated; F17.290 Nicotine dependence, other tobacco product, uncomplicated
CPT/HCPCS: 99283